=== PATIENT | female | born 1995 | race Caucasian/White ===

== ENCOUNTER 2017-02-13 17:51 | Emergency (ER) | payer OTHER ==
[~2017-02-13] VITALS: Ht 167.6 cm; Wt 67.9 kg
[~2017-02-13 17:51] MED LIST: ALBUAER19 INH; ATV5X PO; QVRINH40 INH
[2017-02-13 18:05] VITALS: TEMP 37.1; Ht 167.6 cm; Wt 67.9 kg
[2017-02-13] MEDS ORDERED: ONDANSETRON INJ 2 MG/ML 2 ML VIAL IV STA (18:10)
[2017-02-13] MEDS ORDERED: KETOROLAC TROMETHAMINE 15 MG/ML VIAL IV STA (18:10)
[2017-02-13] MEDS ORDERED: SODIUM CHLORIDE 0.9% 1000ML 1,000 ML IV STA (18:10)
[2017-02-13] MEDS ORDERED: DPPRI400 INJ (18:19)
[2017-02-13 18:25] LABS: BASO % 0.3 %; BASO ABS # 0.02 K/uL (0-0.2); COMPLETE YES; EOS % 1.7 %; HEMATOCRIT 38.2 % (37-47); IG% 0.1 %; LYMPH % 33.9 %; LYMPH ABS # 2.34 K/uL (1.2-3.4); MEAN CELL VOLUME 85.8 fL (80-100); MEAN CORPUSCULAR HEMOGLOBIN 28.8 pg (25-34); MEAN CORPUSCULAR HGB CONC 33.5 g/dl (32-36); MEAN PLATELET VOLUME 10.3 fL (7.4-10.4); MONO % 8.7 %; NEUT % 55.3 %; PLATELET COUNT 218 K/uL (130-400); RED BLOOD COUNT 4.45 M/uL (4.2-5.4)
[2017-02-13 18:29] LABS: URINE APPEARANCE CLEAR (CLEAR); URINE BILIRUBIN NEG (NEG); URINE COLOR YELLOW; URINE NITRITE NEG (NEG); UROBILINOGEN NEG (NEG); ZZUR CULT IF INDIC CLEAN CATCH NO
[2017-02-13 18:35] LABS: MANUAL MICROSCOPIC REQUIRED? NO; REVIEW REQ? NO
[2017-02-13 18:41] LABS: BUN/CREATININE RATIO 20.2 (10-20); CALCIUM 9.1 mg/dl (8.5-10.1); CREATININE 0.86 mg/dl (0.60-1.20); POTASSIUM 3.5 mmol/L (3.5-5.1)
--- NOTE | 2017-02-13 18:47 | EMERGENCY ROOM VISIT NOTE ---
History First contact with patient: 18:01 Chief Complaint: FLANK PAIN Stated Complaint: BACK PAIN,NAUSEA History of Present Illness The patient is a 21 year old female who presents to the Emergency Room with complaints of left flank pain and nausea. The patient states that she has had left-sided flank pain which began yesterday. She states the pain was initially mild, but has worsened. The pain has been constant today. She reports associated nausea without vomiting. She denies any history of similar symptoms. She does report a history of UTIs, but denies history of kidney stones. She rates her overall discomfort a 7/10 and has not taken any medication for pain. She denies any urinary symptoms or fevers/chills. She denies injury to the back. Review of Systems A complete 10 point review of systems was reviewed with the patient with pertinent positives and negatives as per history of present illness. All else were negative. Past Medical/Surgical History Medical Problems: (1) Asthma Family History Cancer Diabetes mellitus Gallbladder disease Heart disease Hypertension Social History Smoking Status: Never Smoker Alcohol Use: none Drug Use: none Marital Status: single Housing Status: lives with family Occupation Status: student Current/Historical Medications Scheduled Medroxyprogesterone Acetate (Depo-Provera), 400 MG INJ Q3MO Physical Exam Vital Signs Date Time Temp Pulse Resp B/P (MAP) Pulse Ox O2 Delivery O2 Flow Rate FiO2 02/13/17 19:46 70 18 121/77 98 02/13/17 18:05 37.1 66 18 131/74 99 Room Air Physical Exam VITALS: Vitals are noted on the nurse's note and reviewed by myself. Vital signs stable. GENERAL: This is a 21-year-old female, in no acute distress, nondiaphoretic, well-developed well-nourished. SKIN: No rashes noted. HEART: Regular rate and rhythm without murmurs gallops or rubs. LUNGS: Clear to auscultation bilaterally without wheezes, rales or rhonchi. ABDOMEN: Positive bowel sounds x 4. Soft, minimal tenderness in the left lower quadrant. No guarding or rebound tenderness. MUSCULOSKELETAL: Mild left CVA tenderness. NEURO: Patient was alert and oriented to person place and time. Medical Decision & Procedures ER Provider Diagnostic Interpretation: ABD/PELVIS WITHOUT FOR STONE FINDINGS: The lung bases are generally clear. No pneumoperitoneum identified. The cardiac chambers are unremarkable. Evaluation of the solid abdominal organs is limited without the use of contrast. The limitations of the study, the liver, spleen, pancreas and adrenal glands are unremarkable. Gallbladder is contracted. No renal calculi or hydronephrosis. Bilateral ureters appear to be within normal limits. There is a punctate area of increased attenuation posterior to the urinary bladder within the region of the left ureterovesicular junction seen on image 375 of series 3, not definitely seen on comparison study of 01/27/2013. This suggests a phlebolith as no evidence of obstructive uropathy or left ureteral inflammatory changes are identified. Uterus and adnexa are unremarkable. 1.8 cm cystic structure of the right adnexum suggests dominant follicle. The abdominal aorta is normal in both course and caliber. No bulky retroperitoneal adenopathy. Debris-filled stomach suggest recent meal. No bowel obstruction. The appendix measures within the upper limits of normal at 6 mm, however does not appear to be inflamed. High attenuating material seen within the tip of the appendix. Soft tissues are unremarkable. Bones appear intact. IMPRESSION: 1. Punctate radiodensity posterior to the urinary bladder on the left within the region of the distal left ureter suggests a phlebolith rather than renal calculus as there is no left-sided obstructive uropathy or left ureteral inflammatory changes identified. 2. High attenuating material within a noninflamed appendiceal tip may reflect oral contrast from prior study or appendicolith. 3. 1.8 cm cystic structure of the right adnexum suggests dominant follicle. Laboratory Results 02/13/17 18:15 Red Blood Count 4.45, Mean Corpuscular Volume 85.8, Mean Corpuscular Hemoglobin 28.8, Mean Corpuscular Hemoglobin Concent 33.5, Mean Platelet Volume 10.3, Neutrophils (%) (Auto) 55.3, Lymphocytes (%) (Auto) 33.9, Monocytes (%) (Auto) 8.7, Eosinophils (%) (Auto) 1.7, Basophils (%) (Auto) 0.3, Neutrophils # (Auto) 3.81, Lymphocytes # (Auto) 2.34, Monocytes # (Auto) 0.60, Eosinophils # (Auto) 0.12, Basophils # (Auto) 0.02 02/13/17 18:15 Test 02/13/17 18:07 02/13/17 18:15 Urine Color YELLOW Urine Appearance CLEAR (CLEAR) Urine pH 8.0 (4.5-7.5) Urine Specific [place] 1.010 (1.000-1.030) Urine Protein NEG (NEG) Urine Glucose (UA) NEG (NEG) Urine Ketones NEG (NEG) Urine Occult Blood NEG (NEG) Urine Nitrite NEG (NEG) Urine Bilirubin NEG (NEG) Urine Urobilinogen NEG (NEG) Urine Leukocyte Esterase SMALL (NEG) Urine WBC (Auto) 1-5 /hpf (0-5) Urine RBC (Auto) 0-4 /hpf (0-4) Urine Hyaline Casts (Auto) 0 /lpf (0-5) Urine Epithelial Cells (Auto) 5-10 /lpf (0-5) Urine Bacteria (Auto) NEG (NEG) Urine Test NEG (NEG) White Blood Count 6.90 K/uL (4.8-10.8) Red Blood Count 4.45 M/uL (4.2-5.4) Hemoglobin 12.8 g/dL (12.0-16.0) Hematocrit 38.2 % (37-47) Mean Corpuscular Volume 85.8 fL (80-100) Mean Corpuscular Hemoglobin 28.8 pg (25-34) Mean Corpuscular Hemoglobin Concent 33.5 g/dl (32-36) Platelet Count 218 K/uL (130-400) Mean Platelet Volume 10.3 fL (7.4-10.4) Neutrophils (%) (Auto) 55.3 % Lymphocytes (%) (Auto) 33.9 % Monocytes (%) (Auto) 8.7 % Eosinophils (%) (Auto) 1.7 % Basophils (%) (Auto) 0.3 % Neutrophils # (Auto) 3.81 K/uL (1.4-6.5) Lymphocytes # (Auto) 2.34 K/uL (1.2-3.4) Monocytes # (Auto) 0.60 K/uL (0.11-0.59) Eosinophils # (Auto) 0.12 K/uL (0-0.5) Basophils # (Auto) 0.02 K/uL (0-0.2) RDW Standard Deviation 40.2 fL (36.4-46.3) RDW Coefficient of Variation 12.8 % (11.5-14.5) Immature Granulocyte % (Auto) 0.1 % Immature Granulocyte # (Auto) 0.01 K/uL (0.00-0.02) Anion Gap 7.0 mmol/L (3-11) Est Creatinine Clear Calc Drug Dose 97.6 ml/min Estimated GFR () 112.7 Estimated GFR (Non- 97.3 BUN/Creatinine Ratio 20.2 (10-20) Calcium Level 9.1 mg/dl (8.5-10.1) Total Bilirubin 0.7 mg/dl (0.2-1) Direct Bilirubin 0.2 mg/dl (0-0.2) Aspartate Amino Transf (AST/SGOT) 18 U/L (15-37) Alanine Aminotransferase (ALT/SGPT) 26 U/L (12-78) Alkaline Phosphatase 52 U/L (45-117) Total Protein 7.7 gm/dl (6.4-8.2) Albumin 4.2 gm/dl (3.4-5.0) Lipase 189 U/L (73-393) Medications Administered Medications (Trade) Dose Ordered Sig/Reji Route Start Time Stop Time Status Last Admin Dose Admin Sodium Chloride 1,000 ml @ 999 mls/hr Q1H1M STAT IV 02/13/17 18:10 02/13/17 19:10 DC 02/13/17 18:10 999 MLS/HR Ondansetron HCl (Zofran Inj) 4 mg NOW STAT IV 02/13/17 18:10 02/13/17 18:13 DC 02/13/17 18:24 4 MG Ketorolac Tromethamine (Toradol Inj) 15 mg NOW STAT IV 02/13/17 18:10 02/13/17 18:13 DC 02/13/17 18:24 15 MG Medical Decision Differential diagnosis includes kidney stone, pyelonephritis, pancreatitis, gastritis, musculoskeletal pain, herpes zoster, among others. The patient is a 21-year-old female who presents today complaining of left flank pain. Labs revealed no leukocytosis, anemia or concerning electrolyte abnormalities. Urinalysis was not suggestive of infection. Urine was negative. CT scan showed questionable left distal ureter punctate stone versus phlebolith. Patient's pain may be secondary to a small stone or musculoskeletal pain. She was treated with IV Toradol and Zofran with significant relief. She declined any further analgesics. She will follow-up with her primary care provider for further evaluation of this. Based on the patient's presentation and work up, I feel the patient is stable for outpatient treatment. The patient was educated to return to the emergency department for any worsening of their current condition or new/concerning symptoms. She will follow up with her PCP. Medication Reconcilliation Current Medication List: was personally reviewed by me Blood Pressure Screening Patient's blood pressure: Normal blood pressure Impression Primary Impression: Left flank pain Departure Information Dispostion Home / Self-Care Condition GOOD Referrals No Doctor, Assigned (PCP) Patient Instructions [facility] Additional Instructions You have been treated in the Emergency Department for Back Pain. For pain control, you can use the following dlnk-akd-ittraae medicines (if >12 yo): - Regular strength (325mg/tab) Tylenol (acetaminophen) 2 tabs every 4-6 hours as needed. Do not exceed 12 tablets in a 24 hour period. Avoid taking more than 4 grams (4000 mg) of Tylenol per day. This includes any other sources of acetaminophen you may take on a regular basis. - Regular strength (200 mg/tab) Advil (ibuprofen) 3 tabs every 6 hours as needed. Do not exceed a dose of 3200 mg per day. If this is an acute injury, ice can be applied to the area of pain for the first 3 days to help decrease pain and inflammation. After the first 3 days, a heating pad can be used over the area for continued soothing relief. You should schedule a follow-up appointment with your Primary Care Provider for a recheck. Return to the Emergency Department if your current symptoms worsen despite treatment course outlined above, or if you develop any of the following symptoms : intractable pain despite aforementioned treatment course, loss of control of your bowel or bladder, numbness or tingling in your groin, or development of a fever.
--- NOTE | 2017-02-13 18:58 | DIAGNOSTIC IMAGING REPORT ---
ABD/PELVIS WITHOUT FOR STONE HISTORY: 21 years-old Female left flank pain, nausea acute left-sided flank pain with nausea. Concern for kidney stone. COMPARISON: CT abdomen and pelvis 01/27/2013 TECHNIQUE: Multiple axial CT images of the abdomen and pelvis were obtained without contrast. A dose lowering technique was used consistent with the principals of ALLAN. FINDINGS: The lung bases are generally clear. No pneumoperitoneum identified. The cardiac chambers are unremarkable. Evaluation of the solid abdominal organs is limited without the use of contrast. The limitations of the study, the liver, spleen, pancreas and adrenal glands are unremarkable. Gallbladder is contracted. No renal calculi or hydronephrosis. Bilateral ureters appear to be within normal limits. There is a punctate area of increased attenuation posterior to the urinary bladder within the region of the left ureterovesicular junction seen on image 375 of series 3, not definitely seen on comparison study of 01/27/2013. This suggests a phlebolith as no evidence of obstructive uropathy or left ureteral inflammatory changes are identified. Uterus and adnexa are unremarkable. 1.8 cm cystic structure of the right adnexum suggests dominant follicle. The abdominal aorta is normal in both course and caliber. No bulky retroperitoneal adenopathy. Debris-filled stomach suggest recent meal. No bowel obstruction. The appendix measures within the upper limits of normal at 6 mm, however does not appear to be inflamed. High attenuating material seen within the tip of the appendix. Soft tissues are unremarkable. Bones appear intact. IMPRESSION: 1. Punctate radiodensity posterior to the urinary bladder on the left within the region of the distal left ureter suggests a phlebolith rather than renal calculus as there is no left-sided obstructive uropathy or left ureteral inflammatory changes identified. 2. High attenuating material within a noninflamed appendiceal tip may reflect oral contrast from prior study or appendicolith. 3. 1.8 cm cystic structure of the right adnexum suggests dominant follicle. The above report was generated using voice recognition software. It may contain grammatical, syntax or spelling errors. Electronically signed by: Marvin Quiros M.D. 02/13/2017 6:57 PM Dictated Date/Time: 02/13/2017 6:49 PM
[2017-02-13 19:46] VITALS: BP 121/77; PULSE 70; O2SAT 98
== END 2017-02-13 19:47 | disposition home or self-care (01) ==
LOC: C.EDB 17:54 → C.EDA 19:47
DX: R10.9 Unspecified abdominal pain (principal); R11.0 Nausea; M54.9 Dorsalgia, unspecified; J45.909 Unspecified asthma, uncomplicated; Z87.440 Personal history of urinary (tract) infections

== ENCOUNTER 2017-05-27 23:10 | Emergency (ER) | payer OTHER ==
[~2017-05-27] VITALS: Ht 167.6 cm; Wt 65.0 kg
[~2017-05-27 23:10] MED LIST changes: -ALBUAER19 INH; -ATV5X PO; +DPPRI400 INJ; -QVRINH40 INH
[2017-05-27 23:13] VITALS: TEMP 36.6; Ht 167.6 cm; Wt 65.0 kg
[2017-05-27] MEDS ORDERED: ALBINS/ NEB (23:33)
[2017-05-27] MEDS ORDERED: VNTHFA/IN PO (23:33)
[2017-05-27 23:39] VITALS: O2SAT 98
[2017-05-27] MEDS ORDERED: KETOROLAC TROMETHAMINE 30 MG/ML VIAL IV STA (23:45)
[2017-05-27 23:54] LABS: BASO % 0.4 %; BASO ABS # 0.03 K/uL (0-0.2); EOS % 1.3 %; EOS ABS # 0.09 K/uL (0-0.5); HEMOGLOBIN 13.6 g/dL (12.0-16.0); IG# 0.01 K/uL (0.00-0.02); LYMPH % 35.9 %; MEAN CELL VOLUME 81.8 fL (80-100); MEAN CORPUSCULAR HEMOGLOBIN 28.5 pg (25-34); MEAN CORPUSCULAR HGB CONC 34.9 g/dl (32-36); MEAN PLATELET VOLUME 10.8 fL (7.4-10.4); MONO % 12.1 %; MONO ABS # 0.81 K/uL (0.11-0.59); NEUT % 50.2 %; NEUT ABS # 3.34 K/uL (1.4-6.5); PLATELET COUNT 197 K/uL (130-400); RED CELL DISTRIBUTION WIDTH CV 12.2 % (11.5-14.5); WHITE BLOOD COUNT 6.68 K/uL (4.8-10.8)
[2017-05-28 00:03] LABS: ALBUMIN 3.9 gm/dl (3.4-5.0); ALT/SGPT 33 U/L (12-78); AST/SGOT 24 U/L (15-37); BLOOD UREA NITROGEN 14 mg/dl (7-18); CALCIUM 8.9 mg/dl (8.5-10.1); CARBON DIOXIDE 26 mmol/L (21-32); CREATININE 0.84 mg/dl (0.60-1.20); GLUCOSE 63 mg/dl (70-99); LIPASE 213 U/L (73-393); POTASSIUM 3.3 mmol/L (3.5-5.1); SODIUM 138 mmol/L (136-145)
[2017-05-28 00:09] LABS: ALKALINE PHOSPHATASE 67 U/L (45-117); CKMB 0.8 ng/ml (0.5-3.6); TOTAL PROTEIN 8.1 gm/dl (6.4-8.2)
[2017-05-28 00:14] LABS: PTT PATIENT 26.4 SECONDS (21.0-31.0)
--- NOTE | 2017-05-28 01:19 | EMERGENCY ROOM VISIT NOTE ---
History Report prepared by Irina: Dot Alfred Under the Supervision of: Dr. Harjit Vuong D.O. First contact with patient: 23:35 Chief Complaint: CARDIAC ASSESSMENT Stated Complaint: CHEST AND SHOULDER PAIN Nursing Triage Summary: Pt complaining of 10/10 left shoulder and chest pain. Pain woke her from sleep tonight. Reports pain present all day, but not this severe. Pt reports she started having right shoulder and chest pain Wednesday. To see PCP with concerns of gallbladder problems, due to family hx. Scheduled for gallbladder US Wednesday. History of Present Illness The patient is a 21 year old female who presents to the Emergency Room for a cardiac assessment. The patient states that she has left shoulder and chest pain. She states that she had the same pain four days ago, but on the right side. She states that at that she took Advil, went to sleep, and was fine. She reports that she went to her PCP three days ago and they scheduled an ultrasound for next thinking it may be her gallbladder. She states that she gets nauseous and vomits with the pain. She states that the pain feels like it is throbbing and radiating. She reports that it makes it feel like her chest is being ripped open. She states that it became worse tonight three hours ago. The patient notes that it is worse when she lies flat. She denies any recent illness. She notes that the pain started shortly after eating toast and Jell-o. She reports that she has been having heart burn, but was given medicine by her PCP that does not help much. Source of History: patient Onset: three hours ago Position: chest (left) Quality: other (radiating and throbbing) Timing: worsening Modifying Factors (Worsening): other (lying flat) Associated Symptoms: + nausea, + vomiting Note: The patient complains of left shoulder pain. Review of Systems See HPI for pertinent positives & negatives. A total of 10 systems reviewed and were otherwise negative. Past Medical & Surgical Medical Problems: (1) Asthma Family History Cancer Diabetes mellitus Gallbladder disease Heart disease Hypertension Social History Smoking Status: Never Smoker Alcohol Use: none Drug Use: none Marital Status: single Housing Status: lives with family Occupation Status: student Current/Historical Medications Scheduled Albuterol Hfa (Ventolin Hfa), 2 PUFFS PO UD Medroxyprogesterone Acetate (Depo-Provera), 400 MG INJ Q3MO Scheduled PRN Albuterol Sulf (Proventil 0.083% 2.5MG/3ML), 3 ML NEB UD PRN for SOB/Wheezing Allergies Coded Allergies: Latex (Verified Allergy, Mild, RASH, 05/27/17) Physical Exam Vital Signs Date Time Temp Pulse Resp B/P (MAP) Pulse Ox O2 Delivery O2 Flow Rate FiO2 05/28/17 01:01 68 18 95/53 98 Room Air 05/28/17 00:01 05/27/17 23:42 65 05/27/17 23:40 69 15 99 05/27/17 23:39 98 Room Air 05/27/17 23:38 128/55 05/27/17 23:13 36.6 61 24 122/76 98 Room Air Physical Exam CONSTITUTIONAL/VITAL SIGNS: Reviewed / noted above. GENERAL: Non-toxic in appearance. INTEGUMENTARY: Warm, dry, and [place]. HEAD: Normocephalic. EYES: without scleral icterus or trauma. ENT/OROPHARYNX: clear and moist. LYMPHADENOPATHY/NECK: Is supple without lymphadenopathy or meningismus. RESPIRATORY: Lungs clear and equal. CARDIOVASCULAR: Regular rate and rhythm. GI/ABDOMEN: Soft. Tenderness ti right upper quadrant. No organomegaly or pulsatile mass. No rebound or guarding. Normal bowel sounds. EXTREMITIES: Warm and well perfused. BACK: No CVA tenderness. NEUROLOGICAL: Intact without focal deficits. PSYCHIATRIC: normal affect. MUSCULOSKELETAL: Normally developed with good muscle tone. Medical Decision & Procedures ER Provider Diagnostic Interpretation: Radiology results as stated below per my review and radiologist interpretation: CHEST X-RAY: The results were interpreted by me. Negative for acute disease. No pneumonia. No pneumothorax. US RUQ: No gallstones or biliary duct dilatation. Radiologist: Bill Burgos M.D. Study ready at 00:48 and initial results transmitted at 00:53. Laboratory Results 05/27/17 23:20 Red Blood Count 4.77, Mean Corpuscular Volume 81.8, Mean Corpuscular Hemoglobin 28.5, Mean Corpuscular Hemoglobin Concent 34.9, Mean Platelet Volume 10.8, Neutrophils (%) (Auto) 50.2, Lymphocytes (%) (Auto) 35.9, Monocytes (%) (Auto) 12.1, Eosinophils (%) (Auto) 1.3, Basophils (%) (Auto) 0.4, Neutrophils # (Auto ) 3.34, Lymphocytes # (Auto) 2.40, Monocytes # (Auto) 0.81, Eosinophils # (Auto ) 0.09, Basophils # (Auto) 0.03 05/27/17 23:20 Test 05/27/17 23:20 05/27/17 23:55 White Blood Count 6.68 K/uL (4.8-10.8) Red Blood Count 4.77 M/uL (4.2-5.4) Hemoglobin 13.6 g/dL (12.0-16.0) Hematocrit 39.0 % (37-47) Mean Corpuscular Volume 81.8 fL (80-100) Mean Corpuscular Hemoglobin 28.5 pg (25-34) Mean Corpuscular Hemoglobin Concent 34.9 g/dl (32-36) Platelet Count 197 K/uL (130-400) Mean Platelet Volume 10.8 fL (7.4-10.4) Neutrophils (%) (Auto) 50.2 % Lymphocytes (%) (Auto) 35.9 % Monocytes (%) (Auto) 12.1 % Eosinophils (%) (Auto) 1.3 % Basophils (%) (Auto) 0.4 % Neutrophils # (Auto) 3.34 K/uL (1.4-6.5) Lymphocytes # (Auto) 2.40 K/uL (1.2-3.4) Monocytes # (Auto) 0.81 K/uL (0.11-0.59) Eosinophils # (Auto) 0.09 K/uL (0-0.5) Basophils # (Auto) 0.03 K/uL (0-0.2) RDW Standard Deviation 36.0 fL (36.4-46.3) RDW Coefficient of Variation 12.2 % (11.5-14.5) Immature Granulocyte % (Auto) 0.1 % Immature Granulocyte # (Auto) 0.01 K/uL (0.00-0.02) Prothrombin Time 10.6 SECONDS (9.0-12.0) Prothromb Time International Ratio 1.0 (0.9-1.1) Activated Partial Thromboplast Time 26.4 SECONDS (21.0-31.0) Partial Thromboplastin Ratio 1.0 Anion Gap 8.0 mmol/L (3-11) Est Creatinine Clear Calc Drug Dose 99.9 ml/min Estimated GFR () 116.0 Estimated GFR (Non- 100.1 BUN/Creatinine Ratio 17.1 (10-20) Calcium Level 8.9 mg/dl (8.5-10.1) Total Bilirubin 0.4 mg/dl (0.2-1) Direct Bilirubin < 0.1 mg/dl (0-0.2) Aspartate Amino Transf (AST/SGOT) 24 U/L (15-37) Alanine Aminotransferase (ALT/SGPT) 33 U/L (12-78) Alkaline Phosphatase 67 U/L (45-117) Total Creatine Kinase 91 U/L (26-192) Creatine Kinase MB 0.8 ng/ml (0.5-3.6) Creatine Kinase MB Ratio 0.9 (0-3.0) Troponin I < 0.015 ng/ml (0-0.045) Total Protein 8.1 gm/dl (6.4-8.2) Albumin 3.9 gm/dl (3.4-5.0) Lipase 213 U/L (73-393) Urine Color YELLOW Urine Appearance CLEAR (CLEAR) Urine pH 7.5 (4.5-7.5) Urine Specific [place] 1.013 (1.000-1.030) Urine Protein NEG (NEG) Urine Glucose (UA) NEG (NEG) Urine Ketones NEG (NEG) Urine Occult Blood NEG (NEG) Urine Nitrite NEG (NEG) Urine Bilirubin NEG (NEG) Urine Urobilinogen NEG (NEG) Urine Leukocyte Esterase TRACE (NEG) Urine WBC (Auto) 1-5 /hpf (0-5) Urine RBC (Auto) 0-4 /hpf (0-4) Urine Hyaline Casts (Auto) 0 /lpf (0-5) Urine Epithelial Cells (Auto) >30 /lpf (0-5) Urine Bacteria (Auto) NEG (NEG) Laboratory results as stated above per my review. Medications Administered Medications (Trade) Dose Ordered Sig/Reji Route Start Time Stop Time Status Last Admin Dose Admin Ketorolac Tromethamine (Toradol Inj) 30 mg NOW STAT IV 05/27/17 23:45 05/27/17 23:48 DC 05/27/17 23:54 30 MG ECG Indication: chest pain Rate (beats per minute): 68 Rhythm: normal sinus Findings: no acute ischemic change, no ectopy ED Course 2337: Previous medical records were reviewed. The patient was evaluated in room B6. A complete history and physical examination was performed. 2345: Ordered Toradol Inj 30 mg IV. 0119: On reevaluation, the patient is resting comfortably. I discussed the results and findings with the patient. She verbalized agreement of the treatment plan. The patient was discharged home. Medical Decision the differential was considered includes acute myocardial infarction, acute coronary syndrome, myocarditis, pericarditis, pericardial effusions /tamponad, esophageal perforation, thoracic aortic dissection, pulmonary embolism, pneumonia, pneumothorax, pancreatitis, shingles, acute cholecystitis, perforated abdominal viscus. This is a 21-year-old female who presents to the ED with a chief complaint of some left-sided upper chest and shoulder pain. She describes it as a throbbing pain. She also reported having some right-sided shoulder pain on Wednesday. This is no longer present. Further details are listed above. Her vital signs are stable. Her physical exam revealed some tenderness to palpation of the left upper chest wall. Blood work reveals a normal CBC and complete metabolic panel. Troponin was negative as was lipase. Urine did not show infection. Ultrasound gallbladder was negative for acute disease. Chest x-ray was negative for acute disease. The patient was told the results. She was given Toradol for pain. She is felt to be stable for discharge. Medication Reconcilliation Current Medication List: was personally reviewed by me Blood Pressure Screening Patient's blood pressure: Normal blood pressure Blood pressure disposition: Did not require urgent referral Impression Primary Impression: Chest wall pain Scribe Attestation The scribe's documentation has been prepared under my direction and personally reviewed by me in its entirety. I confirm that the note above accurately reflects all work, treatment, procedures, and medical decision making performed by me. Departure Information Dispostion Home / Self-Care Referrals Sim Gore M.D.(JOCELINE) (PCP) Forms IMPORTANT VISIT INFORMATION Patient Instructions [facility] Additional Instructions Gallbladder ultrasound today was normal. Blood work and chest x-ray are also normal. Take Tylenol or Motrin for pain. Follow-up with your doctor for recheck if symptoms persist.
[2017-05-28 01:30] VITALS: BP 94/60; PULSE 63; O2SAT 97
--- NOTE | 2017-05-28 06:42 | DIAGNOSTIC IMAGING REPORT ---
CHEST ONE VIEW PORTABLE CLINICAL HISTORY: Fever, sepsis. COMPARISON STUDY: 05/26/2014 FINDINGS: The cardiac and mediastinal contours are normal. There is no evidence of focal pulmonary consolidation. There is no evidence of failure. No pleural effusions are visualized.[ IMPRESSION: No active disease in the chest. Electronically signed by: Aniceto Santoyo M.D. 05/28/2017 6:41 AM Dictated Date/Time: 05/28/2017 6:41 AM
--- NOTE | 2017-05-28 07:27 | DIAGNOSTIC IMAGING REPORT ---
ABDOMINAL ULTRASOUND, RIGHT UPPER QUADRANT HISTORY: Generalized abdominal pain. Vomiting.. COMPARISON: None. FINDINGS: Pancreas: The pancreas demonstrates a normal echotexture. Liver: Unremarkable. Gallbladder: No gallbladder wall thickening. No gallstones. CBD: 3 mm. Right kidney: No hydronephrosis. IMPRESSION: No significant abnormality identified within the right upper quadrant. Electronically signed by: Flako Sanford M.D. 05/28/2017 7:26 AM Dictated Date/Time: 05/28/2017 7:26 AM
== END 2017-05-28 01:30 | disposition home or self-care (01) ==
LOC: C.EDB 23:12
DX: R07.89 Other chest pain (principal); M25.512 Pain in left shoulder; J45.909 Unspecified asthma, uncomplicated

== ENCOUNTER 2017-08-15 16:27 | Emergency (ER) | payer OTHER ==
[~2017-08-15] VITALS: Ht 167.6 cm; Wt 64.5 kg
[~2017-08-15 16:27] MED LIST changes: +ALBINS/ NEB; +VNTHFA/IN PO
[2017-08-15 16:35] VITALS: TEMP 36.8; Ht 167.6 cm; Wt 64.5 kg
[2017-08-15] MEDS ORDERED: PROCHLORPERAZINE 5 MG/ML 2 ML VIAL IV STA (16:58)
[2017-08-15] MEDS ORDERED: KETOROLAC TROMETHAMINE 30 MG/ML VIAL IV STA (16:58)
[2017-08-15] MEDS ORDERED: DiphenhydrAMINE HCL 50 MG/ML VIAL IV STA (16:58)
[2017-08-15] MEDS ORDERED: SODIUM CHLORIDE 0.9% 1000ML 1,000 ML IV ONE (17:00)
--- NOTE | 2017-08-15 17:04 | EMERGENCY ROOM VISIT NOTE ---
History First contact with patient: 16:44 Chief Complaint: HEADACHE Stated Complaint: PCP REFERRAL FOR MIGRAINE AND CHEST PAIN History of Present Illness The patient is a 21 year old female who presents to the Emergency Room with complaints of chest pain that has been intermittent over the last several weeks. She describes it as a dull, ache in the center of her chest. It is worse with lying flat. She also describes shortness of breath with minimal exertion. She denies any recent illnesses such as cough, fever or chills. The patient reports a history of mitral valve prolapse. The patient is also complaining of a severe, throbbing headache for the last 5 days. She has tried hot showers, cool compresses, Excedrin and Tylenol with no relief. She feels nauseous. She denies any vomiting. She denies any severe neck pain. She denies any history of migraines. Review of Systems 10 system review performed and negative unless noted in HPI or below Past Medical/Surgical History Medical Problems: (1) Asthma Depression Family History Cancer Diabetes mellitus Gallbladder disease Heart disease Hypertension Social History Smoking Status: Never Smoker Alcohol Use: none Drug Use: none Marital Status: single Housing Status: lives alone Occupation Status: student Current/Historical Medications Scheduled Albuterol Hfa (Ventolin Hfa), 2 PUFFS PO UD Ketorolac Tromethamine (Toradol), 10 MG PO TID Medroxyprogesterone Acetate (Depo-Provera), 400 MG INJ Q3MO Prochlorperazine Maleate (Compazine), 10 MG PO Q8 Sertraline (Zoloft), 100 MG PO DAILY Scheduled PRN Albuterol Sulf (Proventil 0.083% 2.5MG/3ML), 3 ML NEB UD PRN for SOB/Wheezing Physical Exam Vital Signs Date Time Temp Pulse Resp B/P (MAP) Pulse Ox O2 Delivery O2 Flow Rate FiO2 08/15/17 20:06 60 18 109/58 98 08/15/17 18:10 43 105/66 97 Room Air 08/15/17 18:00 49 08/15/17 16:35 36.8 64 16 119/73 99 Room Air Physical Exam VITALS: Vitals are noted on the nurse's note and reviewed by myself. Vital signs stable. GENERAL: 21-year-old female, mildly anxious in appearance,,well-developed well- nourished. SKIN: The skin was without rashes, erythema, edema, or bruising. HEAD: Normocephalic atraumatic. EYES: Pupils equal round and reactive to light and accommodation. Conjunctivae without injection, sclerae without icterus. Extraocular movements intact. MOUTH: Mucous membranes slightly dry tonsils are not enlarged. Pharynx without erythema or exudate. Uvula midline. Airway patent. Tongue does not deviate. NECK: Supple without nuchal rigidity. Full flexion and extension of the neck no lymphadenopathy. Cervical spine is nontender. No JVD. HEART: Regular rate and rhythm without murmurs gallops or rubs. No tenderness over the thorax LUNGS: Clear to auscultation bilaterally without wheezes, rales or rhonchi. No accessory muscle use. ABDOMEN: Positive bowel sounds x 4.Soft, nontender, without organomegaly. No guarding or rebound tenderness. MUSCULOSKELETAL: No muscle atrophy, erythema, or edema noted. Strength 5/5 throughout. NEURO: Patient was alert and oriented to person place and time. Normal sensation to touch. No focal neurological deficits. Medical Decision & Procedures ER Provider Diagnostic Interpretation: CT head IMPRESSION: Normal noncontrast head CT. Electronically signed by: Aniceto Santoyo M.D. 08/15/2017 6:43 PM Dictated Date/Time: 08/15/2017 6:42 PM CXR IMPRESSION: No active disease in the chest. Electronically signed by: Aniceto Santoyo M.D. 08/15/2017 5:25 PM Dictated Date/Time: 08/15/2017 5:25 PM Laboratory Results 08/15/17 17:50 Red Blood Count 4.81, Mean Corpuscular Volume 80.2, Mean Corpuscular Hemoglobin 26.2, Mean Corpuscular Hemoglobin Concent 32.6, Mean Platelet Volume 10.5, Neutrophils (%) (Auto) 40.0, Lymphocytes (%) (Auto) 47.0, Monocytes (%) (Auto) 10.5, Eosinophils (%) (Auto) 2.0, Basophils (%) (Auto) 0.5, Neutrophils # (Auto ) 2.26, Lymphocytes # (Auto) 2.65, Monocytes # (Auto) 0.59, Eosinophils # (Auto ) 0.11, Basophils # (Auto) 0.03 4/8/18 17:50 Test 08/15/17 17:38 08/15/17 17:50 Urine Color YELLOW Urine Appearance CLEAR (CLEAR) Urine pH 6.5 (4.5-7.5) Urine Specific Byron 1.017 (1.000-1.030) Urine Protein NEG (NEG) Urine Glucose (UA) NEG (NEG) Urine Ketones NEG (NEG) Urine Occult Blood NEG (NEG) Urine Nitrite NEG (NEG) Urine Bilirubin NEG (NEG) Urine Urobilinogen NEG (NEG) Urine Leukocyte Esterase SMALL (NEG) Urine WBC (Auto) 1-5 /hpf (0-5) Urine RBC (Auto) 0-4 /hpf (0-4) Urine Hyaline Casts (Auto) 0 /lpf (0-5) Urine Epithelial Cells (Auto) >30 /lpf (0-5) Urine Bacteria (Auto) NEG (NEG) Urine Test NEG (NEG) White Blood Count 5.64 K/uL (4.8-10.8) Red Blood Count 4.81 M/uL (4.2-5.4) Hemoglobin 12.6 g/dL (12.0-16.0) Hematocrit 38.6 % (37-47) Mean Corpuscular Volume 80.2 fL (80-100) Mean Corpuscular Hemoglobin 26.2 pg (25-34) Mean Corpuscular Hemoglobin Concent 32.6 g/dl (32-36) Platelet Count 194 K/uL (130-400) Mean Platelet Volume 10.5 fL (7.4-10.4) Neutrophils (%) (Auto) 40.0 % Lymphocytes (%) (Auto) 47.0 % Monocytes (%) (Auto) 10.5 % Eosinophils (%) (Auto) 2.0 % Basophils (%) (Auto) 0.5 % Neutrophils # (Auto) 2.26 K/uL (1.4-6.5) Lymphocytes # (Auto) 2.65 K/uL (1.2-3.4) Monocytes # (Auto) 0.59 K/uL (0.11-0.59) Eosinophils # (Auto) 0.11 K/uL (0-0.5) Basophils # (Auto) 0.03 K/uL (0-0.2) RDW Standard Deviation 39.2 fL (36.4-46.3) RDW Coefficient of Variation 13.4 % (11.5-14.5) Immature Granulocyte % (Auto) 0.0 % Immature Granulocyte # (Auto) 0.00 K/uL (0.00-0.02) D-Dimer 210 ug/L FEU (0-500) Anion Gap 6.0 mmol/L (3-11) Est Creatinine Clear Calc Drug Dose 101.2 ml/min Estimated GFR () 117.7 Estimated GFR (Non- 101.5 BUN/Creatinine Ratio 18.9 (10-20) Calcium Level 8.5 mg/dl (8.5-10.1) Total Bilirubin 0.5 mg/dl (0.2-1) Aspartate Amino Transf (AST/SGOT) 17 U/L (15-37) Alanine Aminotransferase (ALT/SGPT) 24 U/L (12-78) Alkaline Phosphatase 53 U/L (45-117) Total Creatine Kinase 86 U/L (26-192) Creatine Kinase MB 0.5 ng/ml (0.5-3.6) Creatine Kinase MB Ratio 0.6 (0-3.0) Troponin I < 0.015 ng/ml (0-0.045) Total Protein 7.9 gm/dl (6.4-8.2) Albumin 3.9 gm/dl (3.4-5.0) Globulin 4.0 gm/dl (2.5-4.0) Albumin/Globulin Ratio 1.0 (0.9-2) Lipase 205 U/L (73-393) Thyroid Stimulating Hormone (TSH) 0.954 uIu/ml (0.300-4.500) Lyme Disease IgG Antibody NEG (NEG) Lyme Disease IgM Antibody NEG (NEG) Medications Administered Medications (Trade) Dose Ordered Sig/Reji Route Start Time Stop Time Status Last Admin Dose Admin Sodium Chloride 1,000 ml @ 999 mls/hr Q1H1M ONCE IV 08/15/17 17:00 08/15/17 18:00 DC 08/15/17 18:06 999 MLS/HR Ketorolac Tromethamine (Toradol Inj) 30 mg NOW STAT IV 08/15/17 16:58 08/15/17 17:01 DC 08/15/17 18:07 30 MG Diphenhydramine HCl (Benadryl Inj) 25 mg NOW STAT IV 08/15/17 16:58 08/15/17 17:01 DC 08/15/17 18:10 25 MG Prochlorperazine Edisylate (Compazine Inj) 10 mg NOW STAT IV 08/15/17 16:58 08/15/17 17:01 DC 08/15/17 18:08 10 MG ECG Per My Interpretation Indication: chest pain Rate (beats per minute): 47 Rhythm: sinus bradycardia Change: no significant change ED Course Patient was seen and examined Vital signs including blood pressure were reviewed medications list was verified with patient Labs were obtained, and a saline lock was established An EKG was performed. The patient was put on a monitor. The patient was medicated with Toradol 30 mg IV, Compazine 10 mg IV, Benadryl 25 mg IV and hydrated with 1 L of normal saline The case was discussed with my supervising physician who evaluated the EKG The patient was reassessed and resting comfortably. Her pain was gone. We discussed her workup. She voiced understanding, was comfortable being discharged home. I reviewed discharge instructions the patient. They voiced understanding and had no further questions. Medical Decision Differential diagnosis: Anxiety, PE, acute myocardial infarction, cardiac arrhythmia, anemia, thyroid abnormality, pneumothorax, pneumonia, bronchitis, pericarditis, tension headache, cluster headache, migraine, encephalitis, meningitis, dehydration This patient is a 21-year-old female that presents to the emergency department with chest pain and a headache. Please see HPI for details. On exam, she was neurologically intact. She was slightly dehydrated. No reproducible chest pain noted. No significant risk factors for PE. Her workup reveals no leukocytosis. Cardiac markers are negative. EKG shows sinus bradycardia with no signs of ischemia or infarction. D-dimer is within normal limits. I do not suspect a cardiac cause for her pain. I do believe there is a slight anxiety component. Regarding the headache, the patient responded very well to the medications given in the emergency department. This leads me to believe that it is migrainous in nature. CT of the head was negative. Lyme screen was also negative. I believe she is stable to be discharged home with close follow-up. She was instructed to follow-up with her primary care physician this week. She agrees to return with worsening symptoms. This chart was completed in part utilizing [employer] Voice Recognition software. Attempts were made to minimize the grammatical errors, random word insertions, pronoun errors and incomplete sentences. Any formal questions or concerns about the content, text or information contained within the body of this dictation should be directly addressed to the provider for clarification. Medication Reconcilliation Current Medication List: was personally reviewed by me Blood Pressure Screening Patient's blood pressure: Normal blood pressure Impression Primary Impression: Headache Additional Impression: Chest pain Departure Information Dispostion Home / Self-Care Condition GOOD Prescriptions Prochlorperazine Maleate (COMPAZINE) 10 Mg Tab 10 MG PO Q8 for Nausea or Vomiting, #10 TAB Prov: Tracy Burch PA-C 08/15/17 Ketorolac Tromethamine (TORADOL) 10 Mg Tab 10 MG PO TID for Pain, #10 TAB Prov: Tracy Burch PA-C 08/15/17 Referrals Sim Gore M.D. ([facility]) (PCP) Patient Instructions [facility] Additional Instructions You were evaluated in the emergency department for chest pain and a headache. A CAT scan did not show any abnormalities of the head. It is possible that you are having a migraine headache. The cause of the chest pain is unclear. Please follow-up with your primary care physician in the next 24-48 hrs. for recheck Please get plenty of rest and drink extra fluids over the next several days. If the headache returns, please take Compazine, Toradol and Benadryl (which is [id number]) every 8 hours as needed for pain and nausea Please do not hesitate to return to the emergency department with any new or worsening symptoms It was a pleasure participating in your care today Problem Qualifiers
[2017-08-15] MEDS ORDERED: SERT-234 PO (17:06)
--- NOTE | 2017-08-15 17:26 | DIAGNOSTIC IMAGING REPORT ---
CHEST ONE VIEW PORTABLE CLINICAL HISTORY: Central chest pain COMPARISON STUDY: 05/27/2017 FINDINGS: The cardiac and mediastinal contours are normal. There is no evidence of focal pulmonary consolidation. There is no evidence of failure. No pleural effusions are visualized.[ IMPRESSION: No active disease in the chest. Electronically signed by: Aniceto Santoyo M.D. 08/15/2017 5:25 PM Dictated Date/Time: 08/15/2017 5:25 PM
[2017-08-15 18:04] LABS: BASO % 0.5 %; BASO ABS # 0.03 K/uL (0-0.2); EOS ABS # 0.11 K/uL (0-0.5); HEMATOCRIT 38.6 % (37-47); HEMOGLOBIN 12.6 g/dL (12.0-16.0); LYMPH ABS # 2.65 K/uL (1.2-3.4); MEAN CELL VOLUME 80.2 fL (80-100); MEAN CORPUSCULAR HEMOGLOBIN 26.2 pg (25-34); MEAN CORPUSCULAR HGB CONC 32.6 g/dl (32-36); MEAN PLATELET VOLUME 10.5 fL (7.4-10.4); MONO % 10.5 %; MONO ABS # 0.59 K/uL (0.11-0.59); NEUT ABS # 2.26 K/uL (1.4-6.5); PLATELET COUNT 194 K/uL (130-400); RED CELL DISTRIBUTION WIDTH CV 13.4 % (11.5-14.5); RED CELL DISTRIBUTION WIDTH SD 39.2 fL (36.4-46.3); WHITE BLOOD COUNT 5.64 K/uL (4.8-10.8)
[2017-08-15 18:24] LABS: ALBUMIN 3.9 gm/dl (3.4-5.0); ALT/SGPT 24 U/L (12-78); AST/SGOT 17 U/L (15-37); BLOOD UREA NITROGEN 16 mg/dl (7-18); CALCIUM 8.5 mg/dl (8.5-10.1); CARBON DIOXIDE 26 mmol/L (21-32); CREATININE 0.83 mg/dl (0.60-1.20); GLUCOSE 71 mg/dl (70-99); LIPASE 205 U/L (73-393); POTASSIUM 3.5 mmol/L (3.5-5.1); SODIUM 138 mmol/L (136-145)
[2017-08-15 18:35] LABS: ALKALINE PHOSPHATASE 53 U/L (45-117); CKMB 0.5 ng/ml (0.5-3.6); TOTAL PROTEIN 7.9 gm/dl (6.4-8.2)
--- NOTE | 2017-08-15 18:44 | DIAGNOSTIC IMAGING REPORT ---
CT HEAD WITHOUT CONTRAST (CT) CLINICAL HISTORY: Severe headache COMPARISON STUDY: 03/03/2010 TECHNIQUE: Axial CT of the brain is performed from the vertex to the skull base. IV contrast was not administered for this examination. A dose lowering technique was utilized adhering to the principles of ALARA. CT DOSE: 537.48 mGy.cm FINDINGS: No intra or extra-axial mass lesions are visualized. There is no CT evidence of acute cortical infarction. There is no evidence of midline shift. There is no acute hemorrhage. No calvarial fractures are visualized. There is no evidence of pathologic ventricular dilatation. There is no evidence of acute sinusitis IMPRESSION: Normal noncontrast head CT. Electronically signed by: Aniceto Santoyo M.D. 08/15/2017 6:43 PM Dictated Date/Time: 08/15/2017 6:42 PM
[2017-08-15] MEDS ORDERED: PROC1TAB5 PO (19:57)
[2017-08-15] MEDS ORDERED: KETO10TA PO (19:57)
[2017-08-15 20:06] VITALS: BP 109/58; PULSE 60; O2SAT 98
== END 2017-08-15 20:06 | disposition home or self-care (01) ==
LOC: C.EDB 16:27 → C.EDC 20:06
DX: R51 Headache (principal); R07.9 Chest pain, unspecified; Z79.899 Other long term (current) drug therapy; Z82.49 Family history of ischemic heart disease and other diseases of the circulatory system; J45.909 Unspecified asthma, uncomplicated

== ENCOUNTER 2017-12-22 06:48 | Observation (INO) | payer OTHER ==
[2017-12-17 11:33] VITALS: BMI 23.0
[~2017-12-22] VITALS: Ht 167.6 cm; Wt 66.3 kg
[2017-12-22] VITALS (8 sets, daily range): BP systolic 97–116; BP diastolic 49–76; PULSE 56–85; TEMP 36.4–37; O2SAT 95–100; Ht 167.6 cm; Wt 66.3 kg
[~2017-12-22 06:48] MED LIST changes: +LACTATED RINGER'S 1000ML 1,000 ML IV SCH; +METO-478 PO; +SUMA100T15 PO
[2017-12-22] MEDS ORDERED: ATROPINE SULFATE 0.1 MG/ML 5ML SYR IV PRN (07:00)
[2017-12-22] MEDS ORDERED: FENTANYL CITRATE INJ 50 MCG/1 ML 2 ML VIAL IV PRN (07:00)
[2017-12-22] MEDS ORDERED: LABETALOL HCL IV 5 MG/ML 20ML IV PRN (07:00)
[2017-12-22] MEDS ORDERED: ONDANSETRON INJ 2 MG/ML 2 ML VIAL IV PRN (07:00)
--- NOTE | 2017-12-22 07:51 | History and Physical ---
History & Physical Date Dec 22, 2017. Chief Complaint palpitations History of Present Illness The patient is a 22 year old female with complaints of palpitations Past Medical/Surgical History Medical Problems: (1) Asthma Additional History Hepatic Disease: No Endocrine Disorder: No Kidney Disease: No Hypertension: No Heart Disease: No Bleeding Tendencies: No Infectious Diseases: No Allergies Coded Allergies: Latex (Verified Allergy, Mild, RASH, 12/22/17) Home Medications Scheduled Albuterol Hfa (Ventolin Hfa), 2 PUFFS PO UD Medroxyprogesterone Acetate (Depo-Provera), 400 MG INJ Q3MO Scheduled PRN Albuterol Sulf (Proventil 0.083% 2.5MG/3ML), 3 ML NEB UD PRN for SOB/Wheezing Sumatriptan Succinate (Imitrex), 1 TAB PO UD PRN for Migraine Physical Examination Skin: warm/dry, no rash Eyes: normal inspection ENT: normal ENT inspection Head: normocephalic, atraumatic Neck: supple Respiratory/Chest: lungs clear, normal breath sounds Cardiovascular: regular rate, rhythm, no edema, no murmur Abdomen / GI: normal bowel sounds Neurologic/Psych: alert, oriented x 3 Diagnosis 1. SVT 2. palpitations 3. asthma ASA Classification: ASA Class II Plan of Treatment pt for EPS with possible ablation rediscussed the procedure and potential risks of the procedure with the patient again today; consent obtained
[2017-12-22] MEDS ORDERED: MIDAZOLAM HCL 1 MG/ML 2ML VIAL ONE ×3 (07:56→11:25)
[2017-12-22] MEDS ORDERED: FENTANYL CITRATE INJ 50 MCG/1 ML 2 ML VIAL ONE ×2 (07:57→11:57)
[2017-12-22] MEDS ORDERED: PROPOFOL IV EMULSION 10 MG/ML 20 ML VIAL ONE ×2 (08:48→11:27)
[2017-12-22] MEDS ORDERED: ISOPROTERENOL 200 MCG / 50ML D5W ONE (09:27)
--- NOTE | 2017-12-22 12:22 | [facility] Post Operative Brief Note ---
Immediate Operative Summary Operative Date Dec 22, 2017. Pre-Operative Diagnosis svt Post-Operative Diagnosis typical AVNRT Procedure(s) Performed EPS, isoprel drug infusion, 3d mapping of His bundle, slow pathway modification Surgeon luc mahajan Dean Of Student Services Surgeon(s) none Estimated Blood Loss <5cc Findings See Below see official report Fluids (cc crystalloids) 750 Specimens none Drains None Anesthesia Type MAC Complication(s) none Disposition Accompanied Pt To Recover: yes Disposition: PCU Overlapping Procedure I was present for: the critical portions of procedure. I was immediately available: during the entire case Back up surgeon: was not required during procedure
--- NOTE | 2017-12-22 12:28 | Discharge Instructions ---
Discharge Instructions Date of Service Dec 22, 2017. Admission Reason for Admission: Paroxysmal Supraventricular Tachycardia, Ablation Discharge Discharge Diagnosis / Problem: typical avnrt s/p slow pathway modification Discharge Goals Goal(s): Improve function Activity Recommendations Activity Limitations: as noted below Lifting Limitations: no more than 10 pounds (no heavy lifting or squatting for 1 week) Shower/Bathe: no limitations Driving or Machine Use: resume 1 day after discharge . Instructions / Follow-Up Instructions / Follow-Up ACTIVITY RECOMMENDATIONS: It is common to feel weak and fatigue for a few days. * Do not drive or operate any motorized equipment for the next 1 day. * Limit stair usage (2 or 3 trips a day only) for the next 2 days. * Do not lift anything heavier than 10 pounds for the next 7 days. * Do not engage in vigorous exercise or any sports for the next 7 days. * You may shower the day after your procedure, but do not immerse the area for three days. Cleanse the site gently with soap and water. SPECIAL CARE INSTRUCTIONS: * You may replace the pressure dressing or band-aid the morning after the procedure. * After your procedure, it is normal to have a small bruise or small lump at the site. Examine your site daily for any change in the bruise or lump, redness, swelling, drainage or numbness. Notify your doctor if any change. BLEEDING: * If there is a small amount of bleeding at the site, lie down and apply firm pressure with a clean cloth for ten minutes. When the bleeding stops, lie quietly keeping the procedure limb straight for six hours. Notify your doctor as soon as possible. * If the bleeding does not stop after ten minutes or if there is a large amount of bleeding or spurting, call 911 immediately. Continue to lie down and hold firm pressure until help arrives. SKIN IRRITATION: * You may experience some redness and/or swelling in the area where radiation was administered. If any skin irritation occurs, please contact your family physician. FOLLOW UP VISIT: Keep any scheduled doctor appointments. Current Hospital Diet Patient's current hospital diet: Regular Diet Discharge Diet Recommended Diet: Regular Diet Procedures Procedures Performed: EPS, isoprel drug infusion, 3d mapping of His bundle, slow pathway modification Pending Studies Studies pending at discharge: no Medical Emergencies . Who to Call and When: Medical Emergencies: If at any time you feel your situation is an emergency, please call 911 immediately. . Non-Emergent Contact Non-Emergency issues call your: Patient Care Representative . . "Provider Documentation" section prepared by [place] [facility]. .
--- NOTE | 2017-12-22 12:32 | Discharge Summary ---
Discharge Summary Date of Service Dec 22, 2017. Discharge Summary Admission Date: 12/22/2017 Discharge Date: Dec 23, 2017 Discharge Disposition: Home Principal Diagnosis: Typical AVNRT s/p slow pathway modification Secondary Diagnoses/Problems: asthma Procedures: EPS, isprel drug challenge, 3d mapping of his bundle, slow pathway modification Medication Reconciliation Continued Medications: Albuterol Hfa (Ventolin Hfa) 200 Puffs/35443 Mcg Aers 2 PUFFS PO UD for SOB/Wheezing Albuterol Sulf (Proventil 0.083% 2.5MG/3ML) 2.5 Mg/3 Ml Nebu 3 ML NEB UD PRN for SOB/Wheezing Medroxyprogesterone Acetate (Depo-Provera) 400 Mg/Ml Inj 400 MG INJ Q3MO Sumatriptan Succinate (Imitrex) 100 Mg Tab 1 TAB PO UD PRN for Migraine, #9 TAB 3 Refills Admission Information Physical Exam (per Admitting): aaox3, NAD NC/AT, EOMI Supple, No JVD NRL S1/S2, no murmur CTA b/l No w/r/r soft NT/ND No edema b/l No focal deficits Skin intact Hospital Course Pt admitted for elective EPS due to SVT; found to have typical AVNRT s/p slow pathway modification without any complications. Monitored overnight and discharged home. Total time spent on discharge = > 30 minutes This includes examination of the patient, discharge planning, medication reconciliation, and communication with other providers. Discharge Instructions ACTIVITY RECOMMENDATIONS: It is common to feel weak and fatigue for a few days. * Do not drive or operate any motorized equipment for the next day. * Limit stair usage (2 or 3 trips a day only) for the next 7 days. * Do not lift anything heavier than 10 pounds for the next 7 days. * Do not engage in vigorous exercise or any sports for the next 7 days. * You may shower the day after your procedure, but do not immerse the area for three days. Cleanse the site gently with soap and water. SPECIAL CARE INSTRUCTIONS: * You may replace the pressure dressing or band-aid the morning after the procedure. * After your procedure, it is normal to have a small bruise or small lump at the site. Examine your site daily for any change in the bruise or lump, redness, swelling, drainage or numbness. Notify your doctor if any change. BLEEDING: * If there is a small amount of bleeding at the site, lie down and apply firm pressure with a clean cloth for ten minutes. When the bleeding stops, lie quietly keeping the procedure limb straight for six hours. Notify your doctor as soon as possible. * If the bleeding does not stop after ten minutes or if there is a large amount of bleeding or spurting, call 911 immediately. Continue to lie down and hold firm pressure until help arrives. SKIN IRRITATION: * You may experience some redness and/or swelling in the area where radiation was administered. If any skin irritation occurs, please contact your family physician. FOLLOW UP VISIT: Keep any scheduled doctor appointments.
--- NOTE | 2017-12-22 13:29 | Anesthesiology Progress Note ---
Anesthesia Post Op Note Date & Time Dec 22, 2017 at 13:29 Vital Signs Pain Intensity: 0 Vital Signs Past 12 Hours Date Time Temp Pulse Resp B/P (MAP) Pulse Ox O2 Delivery O2 Flow Rate FiO2 12/22/17 12:55 36.4 69 16 97/67 95 Room Air 12/22/17 12:35 69 16 101/60 (74) 95 Room Air 12/22/17 12:20 69 16 104/60 (75) 95 Room Air 12/22/17 07:15 37.0 61 16 116/49 (71) 99 Room Air Notes Mental Status: alert / awake / arousable, participated in evaluation Pt Amnestic to Procedure: Yes Nausea / Vomiting: adequately controlled Pain: adequately controlled Airway Patency, RR, SpO2: stable & adequate BP & HR: stable & adequate Hydration State: stable & adequate Anesthetic Complications: no major complications apparent
[2017-12-22] MEDS ORDERED: IV FLUIDS COMPLETED PRN (16:00)
[2017-12-22] MEDS ORDERED: ACETAMINOPHEN 325 MG TAB ONE (16:54)
[2017-12-22] MEDS ORDERED: NURSING VERBAL MED ORDER ONE ×3 (17:00→21:15)
[2017-12-22] MEDS ORDERED: ACETAMINOPHEN 325 MG TAB PO PRN (17:30)
[2017-12-23 02:51] VITALS: BP 98/60; PULSE 70; TEMP 36.5; O2SAT 98
[2017-12-23] MEDS: ACETAMINOPHEN 325 MG TAB PO PRN ×2 (03:45→09:31)
[2017-12-23 06:55] VITALS: BP 94/58; PULSE 59; TEMP 36.8; O2SAT 98
[2017-12-23 09:47] VITALS: BP 94/58; PULSE 59; TEMP 36.8; O2SAT 98
--- NOTE | 2017-12-23 10:11 | Anesthesiology Progress Note ---
Anesthesia Post Op Note Date & Time Dec 23, 2017 at 10:11 Vital Signs Pain Intensity: 5.0 Vital Signs Past 12 Hours Date Time Temp Pulse Resp B/P (MAP) Pulse Ox O2 Delivery O2 Flow Rate FiO2 12/23/17 09:47 36.8 59 18 98 Room Air 12/23/17 06:55 36.8 59 18 94/58 (70) 98 Room Air 12/23/17 02:51 36.5 70 17 98/60 (73) 98 Room Air 12/22/17 23:30 36.8 56 15 114/71 (85) 98 Room Air Notes Mental Status: alert / awake / arousable, participated in evaluation Pt Amnestic to Procedure: Yes Nausea / Vomiting: adequately controlled Pain: adequately controlled Airway Patency, RR, SpO2: stable & adequate BP & HR: stable & adequate Hydration State: stable & adequate Anesthetic Complications: no major complications apparent
--- NOTE | 2017-12-23 17:44 | OPERATIVE REPORT ---
DATE OF OPERATION: 12/23/2017 PREOPERATIVE DIAGNOSIS: Supraventricular tachycardia. POSTOPERATIVE DIAGNOSIS: Typical atrioventricular nimesh reentrant tachycardia. PROCEDURE: Electrophysiology study, isuprel drug challenge, 3D mapping of the His bundle region, radiofrequency ablation for slow pathway modification. SURGEON: [place] Pool DO ASSISTANTS: None. ANESTHESIA: Monitored anesthetic care administered by anesthesiology. Total of 6 mg of Versed and 150 mcg of fentanyl and 1500 mg of Propofol. IV FLUIDS: 750 mL. BLOOD LOSS: Less than 5 mL COMPLICATIONS: None. CONDITION: Stable. URINE OUTPUT: Not applicable. SPECIMENS: None. FINDINGS: See below. DRAINS: None. SURGEON: Indiana Pool DO INDICATIONS: This is a 22-year-old female who has a past medical history for palpitations and asthma. She wore a monitor and was found to have SVT and was recommended electrophysiology study with possible ablation. CONSENT: Consent was obtained prior to the patient going to the electrophysiology lab. The patient was informed the risks, benefits, alternatives of the procedure. Risks include but not limited to sudden cardiac , cardiac arrhythmias, cerebrovascular accident, myocardial infarction, injury to the blood vessels, chamber of the heart or the [place] electrical system where she would need a permanent pacemaker, bleeding, and infection. The patient understood these risks and agreed to the procedure as planned. Informed consent was obtained. DESCRIPTION OF THE PROCEDURE: The patient was brought into the electrophysiology lab in a fasting state. She was connected to continuous monitoring and evaluation advisor. A timeout was performed to ensure the patient's identity and procedure correctly. The patient was prepped and draped over the bilateral groins in normal surgical standard fashion. Monitored anesthetic care was given throughout the procedure for the patient's comfort level via anesthesiology. [place] precautions were maintained throughout the procedure. 10 mL of 1% lidocaine were given in the bilateral groins for local anesthesia. Then, using an ultrasound guidance and modified Seldinger technique, venous access was obtained in the following manner. The left femoral vein had a 6-Tristanian sheath, followed by a Britt quadripolar catheter positioned in the right ventricular apex. A 7-Tristanian sheath followed by a quadripolar hisser catheter positioned over the His bundle region. A 7-Tristanian sheath followed by a [employer] Decapolar DF curve coronary sinus catheter positioned on the coronary sinus. The right femoral vein had a 6-Tristanian sheath, followed by a Britt quadripolar catheter positioned in the high right atrium. Initially, a 4 Tristanian sheath that was ultimately swapped out for an SR0 sheath and a [employer] curve 4 mm ablation catheter. Once all the catheters were in position, electrophysiology study was performed with the following findings: CT interval 182 milliseconds, QRS 92 milliseconds, QT 394 milliseconds. Sinus cycle was 994 milliseconds, AH 100 milliseconds, HV 54 milliseconds. The AV Wenckebach was 600 milliseconds. There was some evidence of dual AV nimesh pathway when I was atrial burst pacing at 600 milliseconds. The fast pathway ERP was 800/560 and 700/560. The AV node ERP was 800/300 and 700/300. Of note, there were a few echo beats at 700/510 and 600/510 as well as double echoes at 700/440. The atrial ERP was 800/200 and 700/220. The right ventricular ERP was 800/280 and 700/260. Giving up to doubles, I was not inducing any arrhythmia, so we started isuprel at 2. Once I had an adequate isuprel response, I was about to start another electrophysiology study on isuprel when an APC came and put her into tachycardia. Looking back, it looks like the tachycardia started after this APC with an AH jump. The tachycardia cycle length was 360 milliseconds. The retrograde atrial conduction was concentric and the time from the right ventricular apex to the high right atrium was 32 milliseconds. With right ventricular entrainment, I had a VAV response. I eventually had to break the tachycardia with matrix to atrial and ventricular pacing. This diagnosed typical AVNRT. We stopped the isuprel. She continued to go spontaneously in the SVT on her own while the isuprel was slowly washing out of her system and every time I had to ventricular pace and sometimes matrix pace to break it. Once the heart rate was back to her baseline, we then set up to do a slow pathway modification. I switched out the 4-Tristanian sheath on the right femoral vein for an SRO and then inserted the ablation catheter. I did 3D mapping of the His bundle region and then placed the catheter on the low right atrium. Of note, when I was 3D mapping the His bundle region, at times I did notice mechanical junctionals as well as at one point there were few seconds of heart block. With the catheter then on the low right atrial septum, we gave a series of radiofrequency paris at 20 siddiqi only for 10-20 seconds at most in duration, but adding up to a good 2-3 minutes total. I then went back and did a post-ablation #1 electrophysiology study with the following findings: CT interval 166 milliseconds, QRS 64 milliseconds, QT 356 milliseconds. Sinus cycle length 966 milliseconds, AH 74 milliseconds, HV 52 milliseconds. AV Wenckebach 480 milliseconds. Fast pathway ERP was 700/410 with 1 echo and then I had 2 echoes at 700/370. With the evidence of the 2 echoes, I stopped and went back to do another series of ablations; this time a little bit higher up than I was before, still remaining at 20 siddiqi. I did have a nice junctionals as I did before and was able to stay on a little bit longer about 20-30 seconds in duration for each burn. After I felt I gave enough, I went back to do another electrophysiology study after ablation #2 with the following findings: CT interval 150 milliseconds, QRS 74 milliseconds, QT 378 milliseconds. Sinus cycle length 934 milliseconds, AH 146 milliseconds, HV 58 milliseconds, AV Wenckebach was 460 milliseconds. The fast pathway ERP was 600/450. At 600/420, I did have 1 echo. The AV node ERP was less than or equal to the atrial ERP. The atrial ERP was 600/250 and 500/250. The right ventricular ERP was 600/240 and 400/230. I gave up to doubles from the high right atrium without any induction of SVT, so I then started isuprel at #2. On isuprel at 2, electrophysiology study had the following findings: CT interval 100 milliseconds, QRS 72 milliseconds, QT 370 milliseconds, sinus cycle length 538 milliseconds, AH 70 milliseconds, HV is 34 milliseconds; however, I did end up inducing SVT again. So, I stopped the isuprel and the SVT was not as sustained and with isuprel as it was washing out before I went back to do another set of ablations, it was not as easily inducible as it was not prior to ablation #1. I then gave another series of ablations a little further up and maybe a little bit more medial, this time at 20 siddiqi. Again, I still had good junctionals and was on for an average of 20 seconds to 30 seconds for each ablation. After I felt like I gave enough, I went back to do post-ablation #3 electrophysiology study with the following findings: CT interval 158 milliseconds, QRS 84 milliseconds, QT 354 milliseconds. Sinus cycle length 802 milliseconds, AH 82 milliseconds, HV 50 milliseconds, AV Wenckebach was 450 milliseconds. Fast pathway ERP was 600/420. The AV node ERP was less than or equal to the atrial. The atrial ERP was 600/250. I did not have any inducible SVT with doubles. Then I started isuprel at 2. When I had an adequate isuprel infusion response, I then repeated electrophysiology study with the following findings: CT interval 122 milliseconds, QRS 78 milliseconds, QT 270 milliseconds. Sinus cycle length 412 milliseconds AH 70 milliseconds, HV 24 milliseconds. The AV Wenckebach was 200 milliseconds. The AV node was less than or equal to the atrial. The atrial ERP was 400/210. I tried up to doubles on isuprel and did not have any inducible SVT. I then stopped the isuprel and during washout, I gave a premature atrial run at 400/290 and she ended up going back into the SVT; was a lot shorter duration maybe about 12 seconds, 15 seconds before it stopped on its own. So I did go back and fourth time just a little bit higher. Again, I got a few junctional paris little bit faster than I would have liked, so I only gave about 2-3 extra paris there and then went back and did electrophysiology study post fourth ablation with the following findings: CT interval 136 milliseconds, QRS 78 milliseconds, QT 350 milliseconds. Sinus cycle length 744 milliseconds, AH 86 milliseconds, HV 54 milliseconds. The AV Wenckebach was 430 milliseconds, the fast pathway ERP was 500/390 and 500/380 with 1 echo beat. The AV node ERP was less than or equal to the atrial. The atrial ERP was 600/250 and 500/230. The right ventricular ERP was 600/260 and 400/240. I gave up to triples from the high rate atrium without any inducible SVT. I opted not to go back on isuprel. I figured my thought process was that she was so easily inducible prior and after my ablation #3, I really was difficult to induce, it was during an isuprel washout and it was not very sustained. I was not comfortable with trying to keep going any more aggressive. I thought let and see how she does clinically and if she does have a recurrence, then we can deal with it, but I would imagine that it would be highly unlikely clinically that she would have any more recurrence and so I deemed that we were successful. All the catheters were removed and the sheaths were pulled with manual compression being held to establish hemostasis. IMPRESSION: 1. 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 2. Evidence of dual atrioventricular nimesh pathway. PLAN: Monitor patient overnight, 12-lead ECG. She is not allowed to do any heavy lifting or squatting for 1 week. She will follow up in my office in 1 month's time. I attest to the content of the Intraoperative Record and any orders documented therein. Any exception s are noted below.
== END 2017-12-23 10:40 | disposition home or self-care (01) ==
LOC: C.EP 06:48 → ENRESERV 10:02 → C.2T 12:24
PROVIDERS: ADMIT Internal Medicine; ATTEND Internal Medicine
DX: I47.1 Supraventricular tachycardia (principal); J45.909 Unspecified asthma, uncomplicated; Z91.040 Latex allergy status

== ENCOUNTER 2017-12-26 16:42 | Emergency (ER) | payer OTHER ==
[~2017-12-26] VITALS: Ht 167.6 cm; Wt 67.5 kg
[~2017-12-26 16:42] MED LIST changes: -LACTATED RINGER'S 1000ML 1,000 ML IV SCH; -METO-478 PO
[2017-12-26 16:45] VITALS: TEMP 36.6; Ht 167.6 cm; Wt 67.5 kg
--- NOTE | 2017-12-26 17:09 | EMERGENCY ROOM VISIT NOTE ---
History Report prepared by Irina: Dot Alfred Under the Supervision of: Dr. Shin Conde D.O. First contact with patient: 16:50 Chief Complaint: SHORTNESS OF BREATH Stated Complaint: CHEST TIGHTNESS, NAUSEA, SOB History of Present Illness The patient is a 22 year old female who presents to the Emergency Room with complaints of sudden shortness of breath starting 5 hours ago. The patient states that she had an ablation done 4 days ago. She states that today she started having chest tightness. She reports that with the chest tightness she was having lightheadedness and nausea. The patient denies arm pain, jaw pain, cough, runny nose, and anything making it better or worse. Patient denies diabetes, hypertension, hyperlipidemia, CAD, history of sudden at a young age, and smoking. Patient denies swelling of calves, recent trips, history of immobilization or recent surgery, prior history of DVT, hemoptysis, history of malignancy, history of smoking, or control/estrogen use. Past records show that the patient had an EP ablation performed by Dr. Pool- Cardiology a few days ago. Source of History: patient Onset: 5 hours ago Position: chest Quality: other (shortness of breath) Timing: other (sudden) Associated Symptoms: + chest pain, + nausea, No cough Note: The patient complains of lightheadedness. The patient denies arm pain, jaw pain , runny nose, anything making it better or worse, and swelling in calves. Review of Systems See HPI for pertinent positives & negatives. A total of 10 systems reviewed and were otherwise negative. Past Medical & Surgical Medical Problems: (1) Asthma (2) AVNRT (AV nimesh re-entry tachycardia) Surgical Problems: (1) Hx of prior ablation treatment Family History Cancer Diabetes mellitus Gallbladder disease Heart disease Hypertension Social History Smoking Status: Never Smoker Alcohol Use: none Drug Use: none Marital Status: single Housing Status: lives alone Occupation Status: student Current/Historical Medications Scheduled Albuterol Hfa (Ventolin Hfa), 2 PUFFS PO UD Medroxyprogesterone Acetate (Depo-Provera), 400 MG INJ Q3MO Scheduled PRN Albuterol Sulf (Proventil 0.083% 2.5MG/3ML), 3 ML NEB UD PRN for SOB/Wheezing Sumatriptan Succinate (Imitrex), 1 TAB PO UD PRN for Migraine Allergies Coded Allergies: Latex (Verified Allergy, Mild, RASH, 12/26/17) Physical Exam Vital Signs Date Time Temp Pulse Resp B/P (MAP) Pulse Ox O2 Delivery O2 Flow Rate FiO2 12/26/17 20:42 63 16 98/63 98 Room Air 12/26/17 19:11 53 16 110/66 99 Room Air 12/26/17 17:15 Room Air 12/26/17 16:57 54 12/26/17 16:45 36.6 88 20 130/84 99 Room Air Physical Exam GENERAL: Sitting up in bed, alert, well appearing, well nourished, no distress, non-toxic EYE EXAM: normal conjunctiva. OROPHARYNX: no exudate, no erythema, lips, buccal mucosa, and tongue normal and mucous membranes are moist NECK: supple, no nuchal rigidity, no adenopathy, non-tender LUNGS: Clear to auscultation. Normal chest wall mechanics HEART: no murmurs, S1 normal and S2 normal ABDOMEN: abdomen soft, non-tender, normo-active bowel sounds, no masses, no rebound or guarding. BACK: Back is symmetrical on inspection and there is no deformity, no midline tenderness, no CVA tenderness. : Bilateral needle puncture sites with minimal swelling and bruising. SKIN: no rashes and no bruising UPPER EXTREMITIES: upper extremities are grossly normal. Radial pulses are equal bilaterally. LOWER EXTREMITIES: No pitting edema. Calves are equal bilaterally. NEURO EXAM: Normal sensorium, cranial nerves II-XII grossly intact, normal speech, no gross weakness of arms, no gross weakness of legs. Medical Decision & Procedures ER Provider Diagnostic Interpretation: Radiology results as stated below per my review and the radiologist's interpretation: CHEST ONE VIEW PORTABLE CLINICAL HISTORY: Chest pain. COMPARISON STUDY: Chest radiograph August 15, 2017. FINDINGS: Lung volumes are normal. There is no pneumothorax or pleural effusion. There is no consolidation or evidence for pulmonary edema. Cardiac size is normal. Mediastinal contours are normal. IMPRESSION: No acute cardiopulmonary findings. Electronically signed by: Antonio Jimenez M.D. 12/26/2017 5:33 PM Dictated Date/Time: 12/26/2017 5:33 PM Laboratory Results 12/26/17 16:55 Red Blood Count 4.82, Mean Corpuscular Volume 84.2, Mean Corpuscular Hemoglobin 28.0, Mean Corpuscular Hemoglobin Concent 33.3, Mean Platelet Volume 10.6, Neutrophils (%) (Auto) 59.1, Lymphocytes (%) (Auto) 27.1, Monocytes (%) (Auto) 10.8, Eosinophils (%) (Auto) 2.5, Basophils (%) (Auto) 0.4, Neutrophils # (Auto ) 4.32, Lymphocytes # (Auto) 1.98, Monocytes # (Auto) 0.79, Eosinophils # (Auto ) 0.18, Basophils # (Auto) 0.03 12/26/17 16:55 Test 12/26/17 16:55 12/26/17 19:21 White Blood Count 7.31 K/uL (4.8-10.8) Red Blood Count 4.82 M/uL (4.2-5.4) Hemoglobin 13.5 g/dL (12.0-16.0) Hematocrit 40.6 % (37-47) Mean Corpuscular Volume 84.2 fL (80-100) Mean Corpuscular Hemoglobin 28.0 pg (25-34) Mean Corpuscular Hemoglobin Concent 33.3 g/dl (32-36) Platelet Count 177 K/uL (130-400) Mean Platelet Volume 10.6 fL (7.4-10.4) Neutrophils (%) (Auto) 59.1 % Lymphocytes (%) (Auto) 27.1 % Monocytes (%) (Auto) 10.8 % Eosinophils (%) (Auto) 2.5 % Basophils (%) (Auto) 0.4 % Neutrophils # (Auto) 4.32 K/uL (1.4-6.5) Lymphocytes # (Auto) 1.98 K/uL (1.2-3.4) Monocytes # (Auto) 0.79 K/uL (0.11-0.59) Eosinophils # (Auto) 0.18 K/uL (0-0.5) Basophils # (Auto) 0.03 K/uL (0-0.2) RDW Standard Deviation 41.7 fL (36.4-46.3) RDW Coefficient of Variation 13.6 % (11.5-14.5) Immature Granulocyte % (Auto) 0.1 % Immature Granulocyte # (Auto) 0.01 K/uL (0.00-0.02) Anion Gap 8.0 mmol/L (3-11) Est Creatinine Clear Calc Drug Dose 104.1 ml/min Estimated GFR () 122.2 Estimated GFR (Non- 105.4 BUN/Creatinine Ratio 14.4 (10-20) Calcium Level 9.3 mg/dl (8.5-10.1) Total Creatine Kinase 56 U/L (26-192) Creatine Kinase MB < 1.0 ng/ml (0.5-3.6) Creatine Kinase MB Ratio (0-3.0) Troponin I 0.040 ng/ml (0-0.045) Laboratory results per my review. Medications Administered Medications (Trade) Dose Ordered Sig/Reji Route Start Time Stop Time Status Last Admin Dose Admin Sodium Chloride 1,000 ml @ 999 mls/hr Q1H1M STAT IV 12/26/17 17:15 12/26/17 18:15 DC 12/26/17 17:55 999 MLS/HR Ketorolac Tromethamine (Toradol Inj) 30 mg NOW STAT IV 12/26/17 17:15 12/26/17 17:16 DC 12/26/17 17:53 30 MG ECG Per My Interpretation Indication: chest pain Rate (beats per minute): 59 Rhythm: sinus bradycardia Findings: nonspecific-ST abn (lead 3), other (normal axis) Comparison ECG Date: 12/22/2017 Change: no significant change ED Course ED COURSE: Vital signs were reviewed and showed that they were normal. The patients medical record was reviewed The above diagnostic studies were performed and reviewed. ED treatments and interventions as stated above. 1642: The patient was evaluated in room B7. A complete history and physical examination was performed. 1715: Ordered Toradol Inj 30 mg IV, NSS 1000 ml @ 999 mls/hr IV. 1731: I reevaluated the patient and updated her on her test results thus far. 1824: I reviewed the patient's case with Dr. Pool-Cardiology. She is uncertain what to make of the patient's troponin. 1846: I reevaluated the patient and she notes that her chest pain is almost completely resolved. She notes that the pain is worse when she is lying back and lying on her left side. She notes that the pain is better when she is sitting up. 0: I reevaluated the patient and she is doing okay. 2017: I reevaluated the patient and she is feeling much better. 2024: I reviewed the patient's case with Dr. Phillips. He recommends Ibuprofen 600 mg TD for 2 weeks and a follow up appointment with Dr. Pool. 2037: Upon reevaluation, the patient is resting comfortably. I discussed my findings with the patient and she understands and agrees with the treatment plan. Based on the patients age, coexisting illnesses, exam and lab findings the decision to treat as an outpatient was made. The patient remained stable while under my care. The patient appeared well at the time of discharge. Medical Decision Differential diagnoses includes but is not limited to acute coronary syndrome, myocardial infarction, pericarditis, pulmonary embolus, aortic dissection, pneumonia, pneumothorax, musculoskeletal, shingles, esophageal. Patient is a 22-year-old female who had an SVT ablation performed by Dr. Pool here several days ago. She presents to ER for tightness in her chest. She initially notes no exacerbating or remitting factors. EKG was unchanged from previous. She has no cardiac risk factors. Patient denies diabetes, hypertension, hyperlipidemia, CAD, history of sudden at a young age, and smoking. CBC and BMP was unremarkable. Troponins were detectable but negative at 0.0402. Symptoms initially started at 12 PM. On reevaluation she eventually noted that pain is worse when lying flat and laying on the left side. Improves with sitting up. Troponin was negative greater than 6 hours from the onset of symptoms. No cardiac risk factors. With the recent procedure in HPI consistent with pericarditis. Discussed with cardiology. Placed on ibuprofen 600 mg 3 times daily 2 weeks. Will follow up with Dr. Pool in the office. Discussed with Pt concerning signs and symptoms to watch out for. Pt was instructed to follow up with their PCP and discussed with the patient their option to return to the ED at anytime for persistent or worsening symptoms. The appropriate anticipatory guidance and out-patient management, including indications for return to the emergency department, were explained at length to the patient and understood. Medication Reconcilliation Current Medication List: was personally reviewed by me Blood Pressure Screening Patient's blood pressure: Normal blood pressure Blood pressure disposition: Did not require urgent referral Consults Time Called: 1815 Consulting Physician: Dr. Bailey Returned Call: 1824 I reviewed the patient's case with Dr. Zazzali-Cardiology. She is uncertain what to make of the patient's troponin. Additional Consults: Time Called: 2019 Consulted Physician: Dr. Mayers-Cardiology Returned Call: 2024 Additional Comments: I reviewed the patient's case with Dr. Phillips. He recommends Ibuprofen 600 mg TD for 2 weeks and a follow up appointment with Dr. Pool. Impression Primary Impression: Pericarditis Scribe Attestation The scribe's documentation has been prepared under my direction and personally reviewed by me in its entirety. I confirm that the note above accurately reflects all work, treatment, procedures, and medical decision making performed by me. Departure Information Dispostion Home / Self-Care Referrals Sim Gore M.D.(JOCELINE) (PCP) Forms HOME CARE DOCUMENTATION FORM, IMPORTANT VISIT INFORMATION Patient Instructions My [facility] Additional Instructions Please follow up with your primary care doctor with in the next 24 hours. Any worsening of your symptoms, please return to the ED immediately. This includes any fevers greater than 100.4, worsening pain, chest pain, shortness breath, persistent nausea, vomiting, unable to eat or drink, or any other concerning signs or symptoms from your standpoint. Please take ibuprofen 600 mg 3 times a day for the next 2 weeks with food until directed otherwise by Dr. aleks Pool. Please make sure that you contact her first thing tomorrow morning for follow-up. Problem Qualifiers Primary Impression: Pericarditis Pericarditis type: unspecified type Chronicity: unspecified Qualified Codes : I31.9 - Disease of pericardium, unspecified
[2017-12-26] MEDS ORDERED: SODIUM CHLORIDE 0.9% 1000ML 1,000 ML IV STA (17:15)
[2017-12-26] MEDS ORDERED: KETOROLAC TROMETHAMINE 30 MG/ML VIAL IV STA (17:15)
[2017-12-26 17:16] LABS: BASO % 0.4 %; BASO ABS # 0.03 K/uL (0-0.2); EOS % 2.5 %; EOS ABS # 0.18 K/uL (0-0.5); HEMATOCRIT 40.6 % (37-47); HEMOGLOBIN 13.5 g/dL (12.0-16.0); IG# 0.01 K/uL (0.00-0.02); LYMPH % 27.1 %; LYMPH ABS # 1.98 K/uL (1.2-3.4); MEAN CELL VOLUME 84.2 fL (80-100); MEAN CORPUSCULAR HGB CONC 33.3 g/dl (32-36); MEAN PLATELET VOLUME 10.6 fL (7.4-10.4); MONO % 10.8 %; MONO ABS # 0.79 K/uL (0.11-0.59); NEUT % 59.1 %; NEUT ABS # 4.32 K/uL (1.4-6.5); PLATELET COUNT 177 K/uL (130-400); RED CELL DISTRIBUTION WIDTH CV 13.6 % (11.5-14.5); RED CELL DISTRIBUTION WIDTH SD 41.7 fL (36.4-46.3); WHITE BLOOD COUNT 7.31 K/uL (4.8-10.8)
--- NOTE | 2017-12-26 17:35 | DIAGNOSTIC IMAGING REPORT ---
CHEST ONE VIEW PORTABLE CLINICAL HISTORY: Chest pain. COMPARISON STUDY: Chest radiograph August 15, 2017. FINDINGS: Lung volumes are normal. There is no pneumothorax or pleural effusion. There is no consolidation or evidence for pulmonary edema. Cardiac size is normal. Mediastinal contours are normal. IMPRESSION: No acute cardiopulmonary findings. Electronically signed by: Antonio Jimenez M.D. 12/26/2017 5:33 PM Dictated Date/Time: 12/26/2017 5:33 PM
[2017-12-26 17:59] LABS: BLOOD UREA NITROGEN 12 mg/dl (7-18); CALCIUM 9.3 mg/dl (8.5-10.1); CARBON DIOXIDE 27 mmol/L (21-32); CKMB < 1.0 ng/ml (0.5-3.6); GLUCOSE 98 mg/dl (70-99); POTASSIUM 3.5 mmol/L (3.5-5.1); SODIUM 138 mmol/L (136-145)
[2017-12-26 20:42] VITALS: BP 98/63; PULSE 63; O2SAT 98
== END 2017-12-26 20:50 | disposition home or self-care (01) ==
LOC: C.EDB 16:44
DX: I31.9 Disease of pericardium, unspecified (principal); Z98.890 Other specified postprocedural states; J45.909 Unspecified asthma, uncomplicated; Z80.9 Family history of malignant neoplasm, unspecified; Z83.3 Family history of diabetes mellitus; Z83.79 Family history of other diseases of the digestive system; Z82.49 Family history of ischemic heart disease and other diseases of the circulatory system; Z79.3 Long term (current) use of hormonal contraceptives; Z91.040 Latex allergy status

== ENCOUNTER 2022-03-18 07:37 | Inpatient (IN) ==
[2022-03-18] MEDS ORDERED: LIDOCAINE 1% LOCAL 20 ML VIAL INFIL PRN (09:13)
[2022-03-18] MEDS ORDERED: OXYTOCIN 30 UNITS/500 ML BAG IV PRN ×3 (09:13→23:28)
[2022-03-18 09:52] LABS: Hematocrit (blood only) 36.2 % (34.1-44.9); Hemoglobin 12.3 g/dl (12.0-16.0); Mean Corpuscular Hemoglobin 28.6 pg (25.0-34.0); Mean Corpuscular Volume 84.2 fL (80.0-100.0); Mean Platelet Volume 11.1 fL (9.4-12.3); Platelet Count 204 K/uL (130-400); RDW Coefficient of Variation 14.1 % (11.5-14.5); RDW Standard Deviation 43.4 fL (36.4-46.3); White Blood Count 9.22 K/ul (4.8-10.8)
[2022-03-18] MEDS: LACTATED RINGER'S 1,000 ML IV PRN ×2 (09:59→15:15)
--- NOTE | 2022-03-18 10:13 | History & Physical Report ---
Date of Service March 18, 2022 Assessment & Plan (1) with nephrolithiasis in third trimester: Plan: IUP at 39 weeks in primiparous female with long history of left flank pain and nephrolithiasis during this cervical balloon successfully placed and pitocin augmentation has been initiated. epidural analgesia if and when requested anticipate vaginal . (2) Back pain: Admission and Anticipated Discharge Date Admission Date: March 18, 2022 History of Present Illness Primary Care Provider: Katerine Kelsey MD Patient is a 26 yo female EDC[birth year] who presents at 39 0/7 weeks for elective induction of labor because of ongoing left flank pain. she is currently on Keflex 500 mg qid for treatment of possible kidney infection. she does have a history of kidney and ureteral stones but most recent ultrasound imaging does not show any stones presently. Otherwise is also complicated with episodes of tachycardia associated with dehydration and vomiting they are brief and resolve on their own. she had a catheter ablation for AVNRT in 2018 and has been having episodes of palpitations while that are short lived and asymptomatic. she was also evaluated for possible Von Willebrands because her mother and several other family members were diagnosed with it. her testing shows she does not have Von Willebrands. GBS-negative Bloodtype -AB positive. Allergies Allergy/AdvReac Type Severity Reaction Status Date / Time latex Allergy Intermediate RASH Verified 03/18/22 08:04 Home Medications Medication Instructions Recorded Confirmed Type prenat.vits,fatuma,rvs-puwe-[id number] 1 tab PO DAILY #30 tabs 07/18/21 03/18/22 Rx ondansetron 4 mg disintegrating 4 mg PO Q6H PRN nausea and 01/29/22 03/18/22 Rx tablet vomiting #20 tabs cephalexin 500 mg capsule 500 mg PO Q6H 10 days #40 caps 03/10/22 03/18/22 Rx Lactobacillus acidophilus 10 10,000 mmu cells PO DAILY 03/18/22 03/18/22 History billion cell capsule (Probiotic) Patient History Medical History Anxiety AVNRT (AV nimesh re-entry tachycardia) Migraine headache Mitral valve prolapse stable-unchanged since childhood. Pericarditis SVT (supraventricular tachycardia) Surgical History H/O cardiac radiofrequency ablation No pertinent past surgical history Status post lateral meniscus repair Family History Grandmother (Paternal) Breast cancer Ovarian cancer Diabetes Aunt Breast cancer Mother Colorectal cancer Von Willebrand disease Father Prostate cancer Grandfather (Paternal) Diabetes Heart disease Grandfather (Maternal) Heart disease Denies family history of Myocardial infarction Lung cancer Stroke Social History Smoking Status: Never smoker Second Hand Exposure: No; Hx Alcohol Use: No Hx Substance Use: No Preferred Language: Turkmen Visual Impairment: No Limitations Hearing Ability: Normal Public Address Announcer Required: No Beliefs That Will Affect Care: None marital status: marital status details: Daniel(25) [phone] Current Living Situation: Spouse Current Living Situation Comment: lives with and cat current occupational status: employed current occupation: [employer] Other Information That Helps Us Care for You: No Feels Safe at Home: Yes Safety Concerns: Feels Safe At This Time Childhood Exposure to Second-Hand Smoke: No Dental Care, Regularly: Yes Seatbelt Use: always Sunscreen Use: Yes Assistive Devices: Glasses Review of Systems All systems reviewed & are unremarkable except as noted in HPI & below Physical Exam Constitutional: WD/WN, vitals as above Psychiatric: A+Ox3, euthymic affect Genitourinary: OB Exam Abdomen: + vertex, + estimated weight (7-8 pounds) and + irregular contractions Manual OB Exam: + cervical dilation fingertip, + cervical effacement 70% and + station -2 OB Exam Monitor Tracing: + external FHT monitor used, + external uterine monitor used, + category I and + normal FHT variability after reviewing the process for insertion of a cervical balloon, and her questions were answered to her satisfaction she gave consent to proceed. A cervical balloon was placed through the internal os under direct visualization and instilled with 40cc sterile water. after the speculum was removed, the catheter was secured to her right thigh under traction. she tolerated the procedure well Results & Data ([facility]) Vital Signs (Past 12 Hours) Vital Signs Temp Pulse Resp BP 03/18/22 07:54 97.9 F 84 18 122/76 Coding Level of Care Code None Diagnoses with nephrolithiasis in third trimester O26.833; N20.0 Back pain M54.9 CPT Codes Misx Procedure Codes - 60614 Placement of cervical dilator: 31499 Placement of cervical dilator ([id number])
[2022-03-18] MEDS: cephALEXin 500 MG CAP PO SCH ×3 (11:06→22:23)
--- NOTE | 2022-03-18 13:56 | Anesthesiology Consultation ---
Date of Service March 18, 2022 Assessment & Plan Chart Review Chart Review: Acceptable Risk for Surgery and Patient NOT seen in Pre Admission Testing ASA ASA3 Proposed Anesthesia Anesthesia Type: Labor Epidural Risk / Benefits Reviewed With: PT / POA / Parent / Guardian, Accepts Plan and Informed Consent Obtained History Height/Weight Height: 5 ft 6 in Weight: 93.894 kg Allergies Allergy/AdvReac Type Severity Reaction Status Date / Time latex Allergy Intermediate RASH Verified 03/18/22 08:04 Medications Home Medications Medication Instructions Recorded Confirmed Last Taken prenat.vits,fatuma,yge-kxaw-qohbe 1 tab PO DAILY #30 tabs 07/18/21 03/18/2212/29 21:00 ondansetron 4 mg disintegrating 4 mg PO Q6H PRN nausea and 01/29/22 03/18/22 03/17/22 12:00 tablet vomiting #20 tabs cephalexin 500 mg capsule 500 mg PO Q6H 10 days #40 caps 03/10/22 03/18/22 03/17/22 21:00 Lactobacillus acidophilus 10 10,000 mmu cells PO DAILY 03/18/22 03/18/22 03/17/22 09:00 billion cell capsule (Probiotic) Active Medications Generic Name Dose Route Start Last Admin Trade Name Freq PRN Reason Stop Dose Admin Cephalexin HCl 500 mg 03/18/22 10:00 03/18/22 11:06 Cephalexin 500 Mg Cap PO 03/28/22 09:59 500 mg Q6H FREDIS Administration Oxytocin 30 units in 500 mls @ 5 mls/hr 03/18/22 09:13 03/18/22 12:10 Pitocin IV 03/20/22 09:12 0.3 units/hr .Q24H PRN 5 mls/hr Labor Induction/Augmentation Titration Protocol 0.3 UNITS/HR Lactated Ringer's 1,000 mls @ 125 mls/hr 03/18/22 09:13 03/18/22 09:59 Lr IV 03/20/22 09:12 125 mls/hr .Q8H PRN Administration L&D Protocol Protocol Past Medical History Medical History Anxiety AVNRT (AV nimesh re-entry tachycardia) Migraine headache Mitral valve prolapse stable-unchanged since childhood. Pericarditis SVT (supraventricular tachycardia) Exercise / Class Metabolic Activity II 4-5 Yardwork/Stairs/Walk up hill Past Family History Family History Grandmother (Paternal) Breast cancer Ovarian cancer Diabetes Aunt Breast cancer Mother Colorectal cancer Von Willebrand disease Father Prostate cancer Grandfather (Paternal) Diabetes Heart disease Grandfather (Maternal) Heart disease Denies family history of Myocardial infarction Lung cancer Stroke Past Surgical History Surgical History H/O cardiac radiofrequency ablation No pertinent past surgical history Status post lateral meniscus repair Past Anesthesia History No Hx of Anesthesia Complications and No Family Hx of Anesthesia Complications History of PONV No Hx of PONV and No Hx of Motion Sickness Social History Smoking Status: Never smoker Hx Alcohol Use: No Alcohol type: beer Hx Substance Use: No substance use type: does not use Review of Systems denies fever/cough/ colds/ chest pain/ SOB/ AMALIA denies AMALIA Physical Exam Vital Signs Last Vital Signs Temp 36.5 C 03/18/22 11:00 Pulse 62 03/18/22 13:06 Resp 18 03/18/22 11:00 BP 113/63 03/18/22 13:06 ENMT Mouth: no TMJ abnormality and no dentition abnormality Thyromental Distance: > or= 3.5 Finger Breadths Mallampati Class: II Neck neck extension not limited Respiratory normal respiratory effort; no respiratory distress Auscultation: lungs clear to auscultation bilaterally Cardiovascular Rate/Rhythm: regular rate and regular rhythm Neurologic moves all extremities Psychiatric Orientation: alert and oriented x 3 Testing Laboratory Results 03/18/22 09:18
[2022-03-18] MEDS ORDERED: SODIUM CHLORIDE 0.9% INJ 10 ML VIAL ONE (14:54)
[2022-03-18] MEDS ORDERED: ePHEDrine sulfate 50 MG/ML AMP ONE (14:54)
[2022-03-18] MEDS ORDERED: fentaNYL citrate 100 MCG/2 ML VIAL ONE (14:54)
[2022-03-18] MEDS ORDERED: LIDOCAINE 2%/EPINEPHRINE 1:200,000 20 ML SDV ONE (14:55)
[2022-03-18] MEDS ORDERED: fentaNYL 2MCG/ML ROPIVACAINE 1.25MG/ML 100 ML BAG EPI ONE (14:55)
[2022-03-18] MEDS ORDERED: BUPIVACAINE 0.25% 30 ML VIAL ONE (14:55)
[2022-03-18] MEDS ORDERED: NALOXONE HCL 0.4 MG/1 ML VIAL/CARP IV PRN (15:06)
[2022-03-18] MEDS ORDERED: ePHEDrine sulfate 50 MG/ML AMP IV PRN (15:06)
[2022-03-18] MEDS ORDERED: fentaNYL 2MCG/ML ROPIVACAINE 1.25MG/ML 100 ML BAG EPI PRN (15:06)
[2022-03-18] MEDS ORDERED: NALOXONE HCL 1 MG in SODIUM CHLORIDE 0.9% 1000ML 1,000 ML IV PRN (15:06)
[2022-03-18] MEDS ORDERED: ONDANSETRON INJ 2 MG/ML 2 ML VIAL IV PRN (15:06)
[2022-03-18] MEDS ORDERED: diphenhydrAMINE 50 MG/ML VIAL IV PRN (15:06)
[2022-03-18] MEDS ORDERED: NALBUPHINE HCL INJ 10 MG/ML AMP IV PRN (15:06)
--- NOTE | 2022-03-18 15:06 | Anesthesiology Consultation ---
Date of Service March 18, 2022 Assessment & Plan ASA ASA2 Proposed Anesthesia Anesthesia Type: Labor Epidural Risk / Benefits Reviewed With: PT / POA / Parent / Guardian, Accepts Plan and Informed Consent Obtained History Height/Weight Height: 5 ft 6 in Weight: 93.894 kg Allergies Allergy/AdvReac Type Severity Reaction Status Date / Time latex Allergy Intermediate RASH Verified 03/18/22 08:04 Medications Home Medications Medication Instructions Recorded Confirmed Last Taken prenat.vits,fatuma,prt-udld-wpjkf 1 tab PO DAILY #30 tabs 07/18/21 03/18/22 03/17/22 21:00 ondansetron 4 mg disintegrating 4 mg PO Q6H PRN nausea and 01/29/22 03/18/22 03/17/22 12:00 tablet vomiting #20 tabs cephalexin 500 mg capsule 500 mg PO Q6H 10 days #40 caps 03/10/22 03/18/22 03/17/22 21:00 Lactobacillus acidophilus 10 10,000 mmu cells PO DAILY 03/18/22 03/18/22 03/17/22 09:00 billion cell capsule (Probiotic) Active Medications Generic Name Dose Route Start Last Admin Trade Name Freq PRN Reason Stop Dose Admin Cephalexin HCl 500 mg 03/18/22 10:00 03/18/22 11:06 Cephalexin 500 Mg Cap PO 03/28/22 09:59 500 mg Q6H FREDIS Administration Oxytocin 30 units in 500 mls @ 7 mls/hr 03/18/22 09:13 03/18/22 14:00 Pitocin IV 03/20/22 09:12 0.42 units/hr .Q24H PRN 7 mls/hr Labor Induction/Augmentation Titration Protocol 0.42 UNITS/HR Lactated Ringer's 1,000 mls @ 125 mls/hr 03/18/22 09:13 03/18/22 15:33 Lr IV 03/20/22 09:12 125 mls/hr .Q8H PRN Infusion L&D Protocol Protocol Past Medical History Medical History Anxiety AVNRT (AV nimesh re-entry tachycardia) Migraine headache Mitral valve prolapse stable-unchanged since childhood. Pericarditis SVT (supraventricular tachycardia) Exercise / Class Metabolic Activity II 4-5 Yardwork/Stairs/Walk up hill Past Family History Family History Grandmother (Paternal) Breast cancer Ovarian cancer Diabetes Aunt Breast cancer Mother Colorectal cancer Von Willebrand disease Father Prostate cancer Grandfather (Paternal) Diabetes Heart disease Grandfather (Maternal) Heart disease Denies family history of Myocardial infarction Lung cancer Stroke Past Surgical History Surgical History H/O cardiac radiofrequency ablation No pertinent past surgical history Status post lateral meniscus repair Past Anesthesia History No Hx of Anesthesia Complications and No Family Hx of Anesthesia Complications History of PONV No Hx of PONV and No Hx of Motion Sickness Social History Smoking Status: Never smoker Hx Alcohol Use: No Alcohol type: beer Hx Substance Use: No substance use type: does not use Review of Systems denies fever/cough/ colds/ chest pain/ SOB/ AMALIA denies AMALIA Physical Exam Vital Signs Last Vital Signs Temp 36.5 C 03/18/22 14:30 Pulse 59 L 03/18/22 16:17 Resp 18 03/18/22 14:30 BP 92/58 L 03/18/22 16:12 Pulse Ox 96 03/18/22 16:17 ENMT Mouth: no TMJ abnormality and no dentition abnormality Thyromental Distance: > or= 3.5 Finger Breadths Mallampati Class: II Neck neck extension not limited Respiratory normal respiratory effort; no respiratory distress Auscultation: lungs clear to auscultation bilaterally Cardiovascular Rate/Rhythm: regular rate and regular rhythm Neurologic moves all extremities Psychiatric Orientation: alert and oriented x 3 Testing Laboratory Results 03/18/22 09:18
--- NOTE | 2022-03-18 22:08 | Anesthesiology Progress Note ---
Date of Service March 18, 2022 Anesthesia Post Procedure Vital Signs Vital Signs: Temp Pulse Resp BP Pulse Ox O2 Del Method 03/18/22 20:50 18 03/18/22 19:05 Room Air 03/18/22 16:30 36.4 C L 03/18/22 17:00 20 03/18/22 16:45 18 03/18/22 16:30 18 03/18/22 16:15 18 03/18/22 17:15 20 03/18/22 16:00 20 03/18/22 22:06 93 H 105/61 03/18/22 21:51 70 101/61 03/18/22 21:37 66 106/63 03/18/22 20:00 18 03/18/22 20:00 18 03/18/22 21:21 92 H 101/56 L 03/18/22 21:06 81 102/62 03/18/22 20:50 76 121/56 L 03/18/22 20:47 76 95 03/18/22 20:37 91 H 95 03/18/22 20:30 154 H 84 L 03/18/22 20:27 131 H 98 03/18/22 20:21 155 H 85 L 03/18/22 20:17 153 H 99 03/18/22 20:07 101 H 98 03/18/22 19:57 121 H 99 03/18/22 19:47 62 98 03/18/22 19:45 79 104/61 03/18/22 19:37 56 L 97 03/18/22 19:30 60 18 105/59 L 03/18/22 19:27 60 96 03/18/22 19:17 61 98 03/18/22 19:16 55 L 105/62 03/18/22 19:05 18 03/18/22 19:05 36.6 C 18 03/18/22 19:07 57 L 97 03/18/22 19:00 57 L 105/62 03/18/22 18:57 57 L 96 03/18/22 18:47 58 L 97 03/18/22 18:46 57 L 108/63 03/18/22 18:30 36.7 C 20 03/18/22 17:30 18 03/18/22 17:30 18 03/18/22 18:37 59 L 98 03/18/22 18:31 57 L 105/63 03/18/22 18:27 57 L 99 03/18/22 18:17 97 03/18/22 18:17 62 03/18/22 18:16 61 91 03/18/22 18:17 57 L 109/62 03/18/22 18:10 71 90 03/18/22 18:07 67 99 03/18/22 18:00 70 20 91 03/18/22 17:57 100 H 101/61 97 03/18/22 17:54 59 L 100/60 03/18/22 17:49 56 L 100/57 L 03/18/22 17:47 58 L 98 03/18/22 17:44 58 L 102/63 03/18/22 17:37 63 97 03/18/22 17:38 68 96/58 L 03/18/22 17:32 55 L 97/55 L 03/18/22 17:27 64 100/57 L 99 03/18/22 17:17 57 L 99/59 L 98 03/18/22 17:12 58 L 93/53 L 03/18/22 17:07 59 L 97 03/18/22 17:08 55 L 96/54 L 03/18/22 17:02 57 L 96/52 L 03/18/22 16:57 97 03/18/22 16:57 65 03/18/22 16:57 57 L 106/56 L 03/18/22 16:52 58 L 101/58 L 03/18/22 16:48 60 104/55 L 03/18/22 16:47 57 L 98 03/18/22 16:46 69 94 03/18/22 16:42 72 99/51 L 03/18/22 16:41 57 L 101/58 L 03/18/22 16:38 61 169/123 H 03/18/22 16:37 62 97 03/18/22 16:33 60 103/56 L 03/18/22 16:27 63 97 03/18/22 16:28 64 100/55 L 03/18/22 16:22 71 109/60 03/18/22 16:18 65 108/57 L 03/18/22 16:17 59 L 96 03/18/22 16:12 75 92/58 L 03/18/22 16:07 75 101/59 L 03/18/22 16:05 73 98/61 L 03/18/22 16:03 96 03/18/22 16:03 79 03/18/22 16:03 74 95/57 L 03/18/22 16:01 80 116/61 03/18/22 15:58 67 96 03/18/22 15:59 68 98/58 L 03/18/22 15:57 67 95/53 L 03/18/22 15:55 63 101/59 L 03/18/22 15:53 62 103/54 L 98 03/18/22 15:48 76 99 03/18/22 15:43 65 97 03/18/22 15:38 65 98 03/18/22 15:33 68 97 03/18/22 15:28 69 98 03/18/22 15:23 90 99 03/18/22 15:18 64 97 03/18/22 15:13 67 97 03/18/22 15:08 75 98 03/18/22 15:07 64 116/68 03/18/22 15:03 67 96 03/18/22 14:30 18 03/18/22 14:30 36.5 C 18 03/18/22 14:06 63 116/70 03/18/22 13:06 62 113/63 03/18/22 12:10 64 123/76 03/18/22 11:00 18 03/18/22 11:00 36.5 C 18 03/18/22 11:07 72 119/64 03/18/22 10:06 66 118/75 03/18/22 07:54 36.6 C 84 18 122/76 Pain Intensity Episiotomy/Laceration: Pain Intensity: 0 Transfer of Care Handoff Completed per policy Notes Mental Status: alert / awake / arousable and participated in evaluation Patient Amnestic to Procedure: Yes Nausea / Vomiting: adequately controlled Pain: adequately controlled Airway Patency, RR, SpO2: stable & adequate BP & HR: stable & adequate Hydration State: stable & adequate Anesthetic Complications: no major complications apparent and Pt Satisfied with anesthetic care
--- NOTE | 2022-03-18 22:08 | Anesthesia Procedure Note ---
Date of Service March 18, 2022 Anesthesia Post Epidural Note Vital Signs Vital Signs: Temp Pulse Resp BP Pulse Ox O2 Del Method 36.6 C 93 H 18 105/61 95 03/18/22 19:05 03/18/22 22:06 03/18/22 20:50 03/18/22 22:06 03/18/22 20:47 03/18/22 19:05 Pain Intensity Episiotomy/Laceration: Pain Intensity: 0 Notes Mental Status: alert / awake / arousable and participated in evaluation Nausea / Vomiting: adequately controlled Pain: adequately controlled Airway Patency, RR, SpO2: stable & adequate BP & HR: stable & adequate Hydration State: stable & adequate Neuraxial Anesthesia: was administered and sensory block is resolving Anesthetic Complications: no major complications apparent and Pt Satisfied with anesthetic care Epidural: Removed without complications and With tip intact
--- NOTE | 2022-03-18 22:27 | Delivery Summary ---
Vaginal Delivery Summary Date of Service March 18, 2022 Vaginal Delivery Summary and 1st Degree LAC Patient is a 26-year-old 1 P0 female who presents at 39 weeks for elective induction because of chronic flank pain. A cervical balloon was successfully placed on the morning of the induction. Pitocin augmentation of her labor was begun and after the balloon was expelled, membranes were actively ruptured for clear fluid. She received effective epidural analgesia, and p rogressed to complete dilation with urge to push. She pushed effectively over intact perineum for delivery of a viable female . After the head was delivered the rest the infant delivered easily. She was placed on the mother's abdomen for further attention and drying she was vigorous and moving all 4 limbs. After cord blood was obtained, the placenta was expressed intact with a three-vessel cord. bleeding was controlled with dilute Pitocin and fundal massage. A first-degree perineal laceration was repaired with 3-0 chromic in the usual fashion. Estimated blood loss 200 cc. Mother and were doing well post delivery. MNP Vaginal Delivery Charge Delivery Type Details: and 1st Degree LAC
[2022-03-18] MEDS ORDERED: HYDROCORTISONE ACETATE 25 MG SUPP PR PRN (23:28)
[2022-03-18] MEDS ORDERED: BENZOCAINE 20% AER SPR 82.5 GM CAN EXT PRN (23:28)
[2022-03-18] MEDS ORDERED: DIPHTHERIA/TETANUS/PERTUSSIS 0.5 ML SYR/VIAL IM ONE (23:28)
[2022-03-18] MEDS ORDERED: oxyCODONE/ACETAMINOPHEN 5mg/325mg TAB PO PRN (23:28)
[2022-03-19] MEDS: DOCUSATE SODIUM 100 MG CAP PO SCH ×3 (00:37→20:16)
[2022-03-19] MEDS: IBUPROFEN 600 MG TAB PO PRN ×5 (02:38→20:15)
[2022-03-19] MEDS: cephALEXin 500 MG CAP PO SCH ×4 (04:13→21:35)
--- NOTE | 2022-03-19 06:05 | Obstetrical Progress Note ---
Date of Service March 19, 2022 Assessment & Plan (1) with nephrolithiasis in third trimester: (2) with 37 weeks completed gestation: Plan s/p PPD#1: Vital signs reviewed and WNL, Tmax 36.8 Hemoglobin 12.3 (03/18), 11.4 (03/19) A+, GBS negative, rubella immune Continue regular diet, treat pain as needed Encourage ambulation Discussed discharge- planning to d/c tomorrow Admission and Anticipated Discharge Date Admission Date: March 18, 2022 Supervising Physician Co-Signing Physician Notes Resident Physician Supervision Note: I interviewed and examined the patient. Discussed with Dr. Linares and agree with findings and plan as documented in the note. Any exceptions or c larifications are listed here: [None] Documented By: Kelsie Laguna MD, FACOG Subjective Patrick is a 26 y/o female who is PPD #1 following vaginal delivery at 39 0/7 weeks. She was recently diagnosed with nephrolithiasis in and has a hx of AVNRT. She reports feeling well overall this morning. Some abdominal cramping but pain well managed on analgesics. Voiding without issue. Tolerating meals overnight and able to ambulate some. Has some persistent lochia with some improvement this morning. Currently breast feeding. Review of Systems Constitutional: no fever, no chills and no sweats Respiratory: no cough, no dyspnea and no wheezing Cardiovascular: no chest pain, no palpitations and no calf pain Genitourinary: no dysuria Neurologic: no headache(s) Physical Exam Constitutional: WD/WN, vitals as above no acute distress Respiratory: no respiratory distress Auscultation: lungs clear to auscultation bilaterally; no rales, no rhonchi and no wheezes Cardiovascular: RRR, no murmur, no edema Extremities: no calf tenderness and no edema Negative Andrew's sign bilaterally. Gastrointestinal (Abdomen): Inspection/Auscultation: normal bowel sounds Genitourinary: Uterine fundus firm, below the umbilicus. Results & Data ([facility]) Vital Signs (Past 12 Hours) Vital Signs Temp Pulse Pulse Pulse Resp BP BP 03/19/22 04:15 36.6 C 75 16 03/19/22 02:35 36.7 C 104 H 20 03/18/22 23:15 36.8 C 73 20 107/59 L 03/18/22 23:15 03/18/22 22:50 36.8 C 20 03/18/22 21:35 18 03/18/22 22:20 16 03/18/22 21:50 20 03/18/22 21:20 18 03/18/22 21:05 20 03/18/22 20:50 18 03/18/22 19:05 03/18/22 22:50 73 107/59 L 03/18/22 22:35 83 103/59 L 03/18/22 22:20 81 108/61 03/18/22 22:06 93 H 105/61 03/18/22 21:51 70 101/61 03/18/22 21:37 66 106/63 03/18/22 20:00 18 03/18/22 20:00 18 03/18/22 21:21 92 H 101/56 L 03/18/22 21:06 81 102/62 03/18/22 20:50 76 121/56 L 03/18/22 20:47 76 03/18/22 20:37 91 H 03/18/22 20:30 154 H 03/18/22 20:27 131 H 03/18/22 20:21 155 H 03/18/22 20:17 153 H 03/18/22 20:07 101 H 03/18/22 19:57 121 H 03/18/22 19:47 62 03/18/22 19:45 79 104/61 03/18/22 19:37 56 L 03/18/22 19:30 60 18 105/59 L 03/18/22 19:27 60 03/18/22 19:17 61 03/18/22 19:16 55 L 105/62 03/18/22 19:05 18 03/18/22 19:05 36.6 C 18 03/18/22 19:07 57 L 03/18/22 19:00 57 L 105/62 03/18/22 18:57 57 L 03/18/22 18:47 58 L 03/18/22 18:46 57 L 108/63 03/18/22 18:30 36.7 C 20 03/18/22 18:37 59 L 03/18/22 18:31 57 L 105/63 03/18/22 18:27 57 L 03/18/22 18:17 03/18/22 18:17 62 03/18/22 18:16 61 03/18/22 18:17 57 L 109/62 03/18/22 18:10 71 03/18/22 18:07 67 BP Pulse Ox O2 Del Method 03/19/22 04:15 102/64 Room Air 03/19/22 02:35 113/76 98 Room Air 03/18/22 23:15 Room Air 03/18/22 23:15 Room Air 03/18/22 22:50 03/18/22 21:35 03/18/22 22:20 03/18/22 21:50 03/18/22 21:20 03/18/22 21:05 03/18/22 20:50 03/18/22 19:05 Room Air 03/18/22 22:50 03/18/22 22:35 03/18/22 22:20 03/18/22 22:06 03/18/22 21:51 03/18/22 21:37 03/18/22 20:00 03/18/22 20:00 03/18/22 21:21 03/18/22 21:06 03/18/22 20:50 03/18/22 20:47 95 03/18/22 20:37 95 03/18/22 20:30 84 L 03/18/22 20:27 98 03/18/22 20:21 85 L 03/18/22 20:17 99 03/18/22 20:07 98 03/18/22 19:57 99 03/18/22 19:47 98 03/18/22 19:45 03/18/22 19:37 97 03/18/22 19:30 03/18/22 19:27 96 03/18/22 19:17 98 03/18/22 19:16 03/18/22 19:05 03/18/22 19:05 03/18/22 19:07 97 03/18/22 19:00 03/18/22 18:57 96 03/18/22 18:47 97 03/18/22 18:46 03/18/22 18:30 03/18/22 18:37 98 03/18/22 18:31 03/18/22 18:27 99 03/18/22 18:17 97 03/18/22 18:17 03/18/22 18:16 91 03/18/22 18:17 03/18/22 18:10 90 03/18/22 18:07 99 Resident Activity Tracking Resident Involvement: Resident Care Provided Care Provided: OB Delivery
[2022-03-19 06:33] LABS: Hematocrit (blood only) 33.8 % (34.1-44.9); Hemoglobin 11.4 g/dl (12.0-16.0)
[2022-03-19] MEDS: PRENATAL VITAMIN 1 TAB PO SCH (07:22)
[2022-03-19] MEDS: ACETAMINOPHEN 325 MG TAB PO PRN (19:22)
[2022-03-19] MEDS ORDERED: oxyCODONE HCL IR 5 MG TAB (IMMEDIATE RELEASE) PO PRN (19:47)
--- NOTE | 2022-03-19 19:53 | Obstetrical Progress Note ---
Date of Service March 19, 2022 Assessment & Plan (1) Fever: (2) care and examination: (3) History of nephrolithiasis: Plan unclear etiology of her fever. ordered labs. ordered urine tests, pt on keflex currently due to kidney stones. no localizing source by history or exam. will monitor. aware may need blood cultures if temp cont to rise. offered and ordered oxycodone for her castro if she wants. bp normal. Admission and Anticipated Discharge Date Admission Date: March 18, 2022 Subjective pt notes feeling flush and has headache, ctsp due to elevated temp. has taken motrin and just took tylenol. denies any localizing sx. no cp or sob, no leg pain. no breast pain, no pain in abdomen or flank. of note, pt has known kidney stones but denies any back pain whatsoever. no cough,cold sx. Review of Systems Constitutional: as per Subjective / HPI Physical Exam Constitutional: WD/WN, vitals as above + ill appearing (cheeks look flush) Gastrointestinal (Abdomen): Inspection/Auscultation: abdomen normal to inspection Percussion/Palpation: abdomen soft; abdomen nontender ff 2 down from umbilicus completely nt Musculoskeletal: nt calves. Neurologic: grossly normal Psychiatric: A+Ox3, euthymic affect Genitourinary: no CVA tenderness Results & Data ([facility]) Vital Signs (Past 12 Hours) Vital Signs Temp Pulse Resp BP Pulse Ox O2 Del Method 03/19/22 18:55 100.8 F H 66 18 104/67 96 Room Air 03/19/22 15:43 98.2 F 66 16 112/73 99 Room Air 03/19/22 13:00 98.4 F 64 16 102/60 97 Room Air PG Care Time/CCT Total # of Minutes Spent Total Time Spent with Patient: Total time spent is greater than 50% in coordination of care (as documented) at patient's floor/unit and/or counseling patient: Coding Level of Care Code None Diagnoses Fever R50.9 care and examination Z39.2 History of nephrolithiasis Z87.442
[2022-03-19 19:58] LABS: Basophils # (auto) 0.03 K/uL (0-0.2); Basophils % (auto) 0.3 %; Eosinophils # (auto) 0.12 K/uL (0-0.50); Eosinophils % (auto) 1.2 %; Hematocrit (blood only) 32.6 % (34.1-44.9); Hemoglobin 10.9 g/dl (12.0-16.0); Immature Granulocytes # (auto) 0.06 K/uL (0.00-0.02); Immature Granulocytes % (auto) 0.6 %; Lymphocytes # (auto) 2.36 K/uL (1.2-3.4); Lymphocytes % (auto) 23.1 %; Mean Corpuscular Hemoglobin 29.1 pg (25.0-34.0); Mean Corpuscular Hgb Conc 33.4 g/dL (32.0-36.0); Mean Corpuscular Volume 87.2 fL (80.0-100.0); Mean Platelet Volume 10.7 fL (9.4-12.3); Monocytes # (auto) 0.79 K/uL (0.24-0.82); Monocytes % (auto) 7.7 %; Neutrophils # (auto) 6.85 K/uL (1.4-6.5); Neutrophils % (auto) 67.1 %; Platelet Count 187 K/uL (130-400); RDW Coefficient of Variation 14.3 % (11.5-14.5); RDW Standard Deviation 45.7 fL (36.4-46.3); Red Blood Count 3.74 M/uL (3.93-5.22); White Blood Count 10.21 K/ul (4.8-10.8)
[2022-03-19 20:32] LABS: Appearance Urine Clear (Clear); Bacteria Urine Automated Negative (Negative); Bilirubin Urine Negative (Negative); Blood Urine 3+ (Negative); Color Urine Yellow; Epithelial Cell Urine Auto 20-30 /lpf (0-5); Glucose Urine UA Negative (Negative); Ketones Urine Trace (Negative); Leukocyte Esterase Urine 1+ (Negative); Nitrite Urine Negative (Negative); Protein Urine Negative (Negative); RBC Urine Automated >30 /hpf (0-4); Specific Gravity Urine 1.021 (1.000-1.030); Urobilinogen Urine Negative (Negative)
[2022-03-20] MEDS: IBUPROFEN 600 MG TAB PO PRN ×3 (03:47→15:41)
[2022-03-20] MEDS: cephALEXin 500 MG CAP PO SCH (05:03)
--- NOTE | 2022-03-20 07:08 | Obstetrical Progress Note ---
Date of Service March 20, 2022 Assessment & Plan (1) care and examination: routine care, likely ok to go home later today but rec staying for 24hr af. f/u 6 wks. (2) Fever: no recurrence of fever. labs reviewed. urine cx pending. will likely dc keflex based on results of last studies, will dw oncoming md/do Subjective Ambulation: ambulating normally Voiding: no voiding problems Diet Tolerance:: regular diet Lochia:: Small Feeding Type:: breast feeding milk just coming in. feels well this am. no further issues with fever. discussed likely need to stop keflex given outcome of other tests and will see if new urine cx shows infection. also reviewed that wbc is normal Constitutional: + as per Subjective / HPI Physical Exam Constitutional WD/WN, vitals as above Respiratory normal respiratory effort, lungs clear to auscultation Cardiovascular Rate/Rhythm: regular rate and regular rhythm Gastrointestinal (Abdomen) Inspection/Auscultation: abdomen normal to inspection Percussion/Palpation: abdomen soft Fundus firm 2cm down, non tender Musculoskeletal nt calves no edema Neurologic grossly normal Psychiatric A+Ox3, euthymic affect Results & Data ([facility]) Vital Signs (Past 12 Hours) Vital Signs Temp Pulse Resp BP Pulse Ox O2 Del Method 03/20/22 03:04 99.0 F 59 L 18 105/67 96 Room Air 03/19/22 20:05 98.8 F 62 20 114/73 95 Room Air
[2022-03-20] MEDS: PRENATAL VITAMIN 1 TAB PO SCH (07:19)
[2022-03-20] MEDS: DOCUSATE SODIUM 100 MG CAP PO SCH (07:19)
[2022-03-20] MEDS: ACETAMINOPHEN 325 MG TAB PO PRN ×2 (07:19→13:24)
--- NOTE | 2022-03-20 08:00 | Communication Note ---
Date of Service: March 20, 2022 spoke with ob team this am. will plan to dc keflex. followup on urine cx pending. if remains af ok to go home after 24hr af. pt already aware of such.
[2022-03-20] MEDS ORDERED: bisacodyL 10 MG SUPP PR PRN (23:28)
== END 2022-03-20 18:34 | disposition home or self-care (01) | DRG 807 ==
LOC: 4S1 07:37 → 4E2 23:30

== ENCOUNTER 2022-07-30 23:01 | Observation (INO) ==
[2022-07-30] MEDS ORDERED: SODIUM CHLORIDE 0.9% 1000ML 1,000 ML IV STA (23:21)
[2022-07-30] MEDS ORDERED: MoRPHine SULFATE 4 MG/ML 1 ML CARP\\VIAL IV STA (23:21)
[2022-07-30] MEDS ORDERED: ONDANSETRON INJ 2 MG/ML 2 ML VIAL IV STA (23:21)
--- NOTE | 2022-07-30 23:36 | Emergency Department Note ---
Impression & Plan Choledocholithiasis, Right upper quadrant abdominal pain, Nausea and vomiting ED Provider Note CHIEF COMPLAINT: Right upper quadrant abdominal pain, nausea/vomiting/diarrhea HISTORY OF PRESENTING ILLNESS: This is a 26-year-old female who presents to the emergency department by private vehicle with complaint of right upper and epigastric abdominal pain that has been ongoing for about 24 hours. The pain radiates into her right upper back, is sharp, and she rates the pain 9/10. She has tried taking ibuprofen, Tylenol, and simethicone for her symptoms without any relief. She has had associated nausea with vomiting and some diarrhea as well and has not been able to keep much of anything down today. She notes that she has been having some upper abdominal pain ongoing for a few months and has been evaluated by her PCP, she had an ultrasound which showed gallstones. She denies any fevers or chills. She denies chest pain, shortness of breath, palpitations, dizziness or syncope. She denies any bloody or black stools. She denies urinary symptoms. REVIEW OF SYSTEMS: A complete 10 point review of systems was reviewed with the patient with pertinent positives and negatives as per history of present illness. All else were negative. PAST MEDICAL HISTORY: Anxiety, asthma, migraines, depression, history of gallstones SOCIAL HISTORY: Lives at home with family, denies tobacco use ALLERGIES: Reviewed in chart and with the patient PHYSICAL EXAM: CONSTITUTIONAL: Pleasant and cooperative. Nontoxic-appearing and in no acute distress. Well appearing and well nourished. HEENT: Normocephalic, atraumatic. NECK: Supple, full active range of motion without discomfort. RESPIRATORY: Clear to auscultation bilaterally with no wheezing, crackles, rhonchi or stridor. Equal expansion bilaterally. CARDIOVASCULAR: Regular rate and rhythm with no murmurs, rubs or gallops. Normal peripheral perfusion. No edema. GASTROINTESTINAL: Tender to palpation in the epigastric and right upper quadrant abdomen, no rebound tenderness or guarding. Abdomen is otherwise nontender, sof t and nondistended. No palpable masses or HSM. Bowel sounds present in all quadrants. No CVA tenderness bilaterally. MUSCULOSKELETAL: Full range of motion of all joints without discomfort. INTEGUMENTARY: No rash or other significant dermatologic conditions noted. NEUROLOGIC: Alert and oriented X 4 with normal affect. Normal speech. Normal gait observed. ED COURSE AND MEDICAL DECISION MAKING: CC: Patient presenting with complaint of upper abdominal pain DIFFERENTIAL DIAGNOSIS: Includes, but not limited to gastroenteritis, gastritis, peptic ulcer disease, GERD, cholecystitis, cholelithiasis, choledocholithiasis, infectious colitis, ureteral stone, UTI, pyelonephritis, among others. INTERPRETATION OF LABS: No leukocytosis, no anemia, normal platelets, no significant electrolyte abnormalities, normal renal function, normal liver enzymes and lipase. Serum negative. UA appears contaminated, a urine culture is pending. MEDICATION RECONCILIATION: I attest that I have personally reviewed the patient's current medication list. INITIAL VITAL SIGNS REVIEW: I reviewed the patient's initial vital signs and interpret them as follows: T: Afebrile; BP: Normotensive; HR: Within normal limits; RR: Within normal limits; Pulse Ox: Within normal limits on room air. MDM SUMMARY: Patient was evaluated at bedside, history and physical exam performed. Patient is alert and oriented, in no acute distress, resting calmly in the stretcher. She is afebrile and nontoxic-appearing, does appear to be mildly dehydrated clinically. Tenderness to palpation of the epigastric and right upper quadrant abdomen which reproduces complaint. No acute abdomen. Orders were placed at bedside for labs, UA, IV fluid bolus for hydration, IV morphine for pain, IV Zofran for nausea, right upper quadrant ultrasound. Patient discussed with Dr. Gonzalez, who agrees with my assessment, plan, and disposition. Labs and imaging reviewed as above, US notable for mildly enlarged common bile duct and choledocholithiasis. Labs are fairly unremarkable with no leukocytosis, and normal liver enzymes and lipase. She is not . I spoke on the phone with Dr. Galan, gastroenterology, who did recommend that the patient be admitted and kept n.p.o. for probable ERCP procedure later today. I spoke with Dr. Escamilla, the [facility] Hospitalist, who agreed to evaluate the patient for admission. Patient reassessed multiple times throughout ED stay, she has remained hemodynamically stable and afebrile and has had good relief of her pain with morphine. The patient was updated on all results and plan for admission and plan for ERCP, she verbalized understanding and was agreeable to this plan. The patient was stable at the time of admission. The chart was completed utilizing [employer] voice recognition software. Grammatical errors, random word insertions, pronoun errors, and incomplete sentences are an occasional consequence of this system due to software limitations, ambient noise, and hardware issues. Any formal questions or concerns about the content, text, or information contained within the body of this dictation should be directly addressed to the nurse practitioner for clarification. Past Med/Surg History Medical History Anxiety AVNRT (AV nimesh re-entry tachycardia) Migraine headache Mitral valve prolapse Pericarditis SVT (supraventricular tachycardia) Surgical History H/O cardiac radiofrequency ablation No pertinent past surgical history Status post lateral meniscus repair Family History Grandmother (Paternal) Breast cancer Ovarian cancer Diabetes Aunt Breast cancer Mother Colorectal cancer Von Willebrand disease Father Prostate cancer Grandfather (Paternal) Diabetes Heart disease Grandfather (Maternal) Heart disease Denies family history of Myocardial infarction Lung cancer Stroke Social History Smoking Status: Never smoker Second Hand Exposure: No; Hx Alcohol Use: No Hx Substance Use: No Preferred Language: Korean Visual Impairment: No Limitations Hearing Ability: Normal V Belt Finisher Required: No Beliefs That Will Affect Care: None marital status: marital status details: Daniel(25) [phone] Current Living Situation: Spouse Current Living Situation Comment: lives with and cat current occupational status: employed current occupation: [employer] Feels Safe at Home: Yes Childhood Exposure to Second-Hand Smoke: No Dental Care, Regularly: Yes Seatbelt Use: always Sunscreen Use: Yes Assistive Devices: Glasses Allergies Allergies Allergy/AdvReac Type Severity Reaction Status Date / Time latex Allergy Intermediate RASH Verified 07/09/22 10:06 Home Meds Home Medications Medication Instructions Recorded Confirmed Lactobacillus acidophilus 10 10,000 mmu cells PO DAILY 03/18/22 07/30/22 billion cell capsule (Probiotic) Previous Rx's Medication Instructions Recorded lorazepam 0.5 mg tablet 0.5 mg PO DAILY PRN uncontrolled 07/09/22 anxiety / panic #30 tabs sertraline 50 mg tablet 50 mg PO DAILY #90 tabs 07/09/22 Results & Data (ED) Vital Signs Vital Signs - 24 hr 07/30/22 23:03 07/31/22 00:17 07/31/22 00:38 Temperature 36.3 C L Temperature Source Temporal Artery Scan Pulse Rate 76 64 Pulse Rate [Apical] 61 Respiratory Rate 18 16 Respiratory Effort / Characteristics Non-Labored Spontaneous Respiratory Depth Normal Respiratory Pattern Regular Blood Pressure 116/80 Blood Pressure [Right Arm] 118/67 Blood Pressure Mean 92 Blood Pressure Mean [Right Arm] 84 Blood Pressure Position Sitting Pulse Oximetry 98 98 Oxygen Delivery Method Room Air Room Air Sepsis Recent Fever Within 48 Hours No Sepsis New/Unexplained Change in Mental Status N/A Sepsis Action Taken by Nursing No Action Required Laboratory Data 07/30/22 23:28 07/30/22 23:28 Lab Results 07/30/22 07/30/22 07/30/22 Range/Units 23:28 23:28 23:28 WBC 8.59 (4.8-10.8) K/ul RBC 4.57 (4.20-5.40) M/uL Hgb 13.0 (12.0-16.0) g/dl Hct 38.9 (37.0-47.0) % MCV 85.1 (80.0-100.0) fL MCH 28.4 (25.0-34.0) pg MCHC 33.4 (32.0-36.0) g/dL RDW Std Deviation 39.4 (36.4-46.3) fL RDW Coeff of Jana 12.8 (11.5-14.5) % Plt Count 226 (130-400) K/uL MPV 10.4 (9.4-12.4) fL Immature Gran % (Auto) 0.2 % Neut % (Auto) 58.4 % Lymph % (Auto) 31.2 % [place] % (Auto) 7.8 % Eos % (Auto) 1.9 % Baso % (Auto) 0.5 % Neut # (Auto) 5.02 (1.40-6.50) K/uL Lymph # (Auto) 2.68 (1.2-3.4) K/uL [place] # (Auto) 0.67 H (0.11-0.59) K/uL Eos # (Auto) 0.16 (0-0.50) K/uL Baso # (Auto) 0.04 (0-0.2) K/uL Immature Gran # (Auto) 0.02 (0.01-0.20) K/uL PT Cancelled INR Cancelled APTT Cancelled PTT Ratio Cancelled Sodium 137 (136-145) mmol/L Potassium 3.8 (3.5-5.1) mmol/L Chloride 105 (98-107) mmol/L Carbon Dioxide 24 (21-32) mmol/L Anion Gap 8 (3-11) BUN 21 (6-23) mg/dl Creatinine 0.76 (0.6-1.2) mg/dl Est Cr Clr Drug Dosing 128.6 ml/min Est GFR ( Amer) 126.4 ml/min Est GFR (Non-Af Amer) 109.0 ml/min BUN/Creatinine Ratio 27.6 H (10-20) Glucose 91 (70-99(Fasting)) mg/dl Calcium 9.4 (8.6-10.3) mg/dl Total Bilirubin 0.6 (0.2-1.0) mg/dl AST 28 (13-39) U/L ALT 42 (7-52) U/L Alkaline Phosphatase 55 (34-104) U/L Total Protein 7.6 (6.0-8.3) gm/dl Albumin 4.4 (3.4-5.0) gm/dl Globulin 3.2 (2.5-4.0) gm/dl Albumin/Globulin Ratio 1.4 (0.9-2) Lipase 34 (11-82) U/L HCG, Qual (Negative) Urine Color Urine Appearance (Clear) Urine pH (4.5-7.5) Ur Specific [place] (1.000-1.030) Urine Protein (Negative) Urine Glucose (UA) (Negative) Urine Ketones (Negative) Urine Blood (Negative) Urine Nitrite (Negative) Urine Bilirubin (Negative) Urine Urobilinogen (Negative) Ur Leukocyte Esterase (Negative) Urine WBC (Auto) (0-5) /hpf Urine RBC (Auto) (0-4) /hpf U Hyaline Cast (Auto) (0-5) /lpf U Epithel Cells (Auto) (0-5) /lpf Urine Bacteria (Auto) (Negative) SARS-CoV-2, RNA, NAAT (NEGATIVE) 07/30/22 07/31/22 07/31/22 Range/Units 23:28 00:21 00:37 WBC (4.8-10.8) K/ul RBC (4.20-5.40) M/uL Hgb (12.0-16.0) g/dl Hct (37.0-47.0) % MCV (80.0-100.0) fL MCH (25.0-34.0) pg MCHC (32.0-36.0) g/dL RDW Std Deviation (36.4-46.3) fL RDW Coeff of Jana (11.5-14.5) % Plt Count (130-400) K/uL MPV (9.4-12.4) fL Immature Gran % (Auto) % Neut % (Auto) % Lymph % (Auto) % [place] % (Auto) % Eos % (Auto) % Baso % (Auto) % Neut # (Auto) (1.40-6.50) K/uL Lymph # (Auto) (1.2-3.4) K/uL [place] # (Auto) (0.11-0.59) K/uL Eos # (Auto) (0-0.50) K/uL Baso # (Auto) (0-0.2) K/uL Immature Gran # (Auto) (0.01-0.20) K/uL PT 10.7 INR 1.0 APTT 28.8 PTT Ratio 1.0 Sodium (136-145) mmol/L Potassium (3.5-5.1) mmol/L Chloride (98-107) mmol/L Carbon Dioxide (21-32) mmol/L Anion Gap (3-11) BUN (6-23) mg/dl Creatinine (0.6-1.2) mg/dl Est Cr Clr Drug Dosing ml/min Est GFR ( Amer) ml/min Est GFR (Non-Af Amer) ml/min BUN/Creatinine Ratio (10-20) Glucose (70-99(Fasting)) mg/dl Calcium (8.6-10.3) mg/dl Total Bilirubin (0.2-1.0) mg/dl AST (13-39) U/L ALT (7-52) U/L Alkaline Phosphatase (34-104) U/L Total Protein (6.0-8.3) gm/dl Albumin (3.4-5.0) gm/dl Globulin (2.5-4.0) gm/dl Albumin/Globulin Ratio (0.9-2) Lipase (11-82) U/L HCG, Qual Negative (Negative) Urine Color Yellow Urine Appearance Cloudy A (Clear) Urine pH 6.0 (4.5-7.5) Ur Specific [place] 1.040 H (1.000-1.030) Urine Protein Trace H (Negative) Urine Glucose (UA) Negative (Negative) Urine Ketones Trace H (Negative) Urine Blood Negative (Negative) Urine Nitrite Negative (Negative) Urine Bilirubin Negative (Negative) Urine Urobilinogen Negative (Negative) Ur Leukocyte Esterase 1+ H (Negative) Urine WBC (Auto) 10-30 H (0-5) /hpf Urine RBC (Auto) 5-10 H (0-4) /hpf U Hyaline Cast (Auto) 5-10 H (0-5) /lpf U Epithel Cells (Auto) >30 H (0-5) /lpf Urine Bacteria (Auto) 1+ H (Negative) SARS-CoV-2, RNA, NAAT (NEGATIVE) 07/31/22 Range/Units 00:50 WBC (4.8-10.8) K/ul RBC (4.20-5.40) M/uL Hgb (12.0-16.0) g/dl Hct (37.0-47.0) % MCV (80.0-100.0) fL MCH (25.0-34.0) pg MCHC (32.0-36.0) g/dL RDW Std Deviation (36.4-46.3) fL RDW Coeff of Jana (11.5-14.5) % Plt Count (130-400) K/uL MPV (9.4-12.4) fL Immature Gran % (Auto) % Neut % (Auto) % Lymph % (Auto) % [place] % (Auto) % Eos % (Auto) % Baso % (Auto) % Neut # (Auto) (1.40-6.50) K/uL Lymph # (Auto) (1.2-3.4) K/uL [place] # (Auto) (0.11-0.59) K/uL Eos # (Auto) (0-0.50) K/uL Baso # (Auto) (0-0.2) K/uL Immature Gran # (Auto) (0.01-0.20) K/uL PT INR APTT PTT Ratio Sodium (136-145) mmol/L Potassium (3.5-5.1) mmol/L Chloride (98-107) mmol/L Carbon Dioxide (21-32) mmol/L Anion Gap (3-11) BUN (6-23) mg/dl Creatinine (0.6-1.2) mg/dl Est Cr Clr Drug Dosing ml/min Est GFR ( Amer) ml/min Est GFR (Non-Af Amer) ml/min BUN/Creatinine Ratio (10-20) Glucose (70-99(Fasting)) mg/dl Calcium (8.6-10.3) mg/dl Total Bilirubin (0.2-1.0) mg/dl AST (13-39) U/L ALT (7-52) U/L Alkaline Phosphatase (34-104) U/L Total Protein (6.0-8.3) gm/dl Albumin (3.4-5.0) gm/dl Globulin (2.5-4.0) gm/dl Albumin/Globulin Ratio (0.9-2) Lipase (11-82) U/L HCG, Qual (Negative) Urine Color Urine Appearance (Clear) Urine pH (4.5-7.5) Ur Specific [place] (1.000-1.030) Urine Protein (Negative) Urine Glucose (UA) (Negative) Urine Ketones (Negative) Urine Blood (Negative) Urine Nitrite (Negative) Urine Bilirubin (Negative) Urine Urobilinogen (Negative) Ur Leukocyte Esterase (Negative) Urine WBC (Auto) (0-5) /hpf Urine RBC (Auto) (0-4) /hpf U Hyaline Cast (Auto) (0-5) /lpf U Epithel Cells (Auto) (0-5) /lpf Urine Bacteria (Auto) (Negative) SARS-CoV-2, RNA, NAAT NEGATIVE (NEGATIVE) Administered Medications Discontinued Medications Sodium Chloride (Nss 1000ml) 1,000 mls @ 999 mls/hr IV .[id number] STA Stop: 07/31/22 00:21 Last Infusion: 03/24/23 01:14 Dose: 0 mls/hr Documented By: Admin: 07/31/22 00:09 Dose: 999 mls/hr Documented By: ANTON Morphine Sulfate (Morphine Sulfate 4 Mg/Ml 1 Ml Carp\Vial) 4 mg IV NOW STA Stop: 07/30/22 23:22 Last Admin: 07/31/22 00:08 Dose: 4 mg Documented By: ANTON Morphine Sulfate (Morphine Sulfate 4 Mg/Ml 1 Ml Carp\Vial) 4 mg IV NOW STA Stop: 07/31/22 01:15 Last Admin: 07/31/22 01:17 Dose: 4 mg Documented By: ANTON Ondansetron HCl (Ondansetron Inj 2 Mg/Ml 2 Ml Vial) 4 mg IV NOW STA Stop: 07/30/22 23:22 Last Admin: 07/31/22 00:09 Dose: 4 mg Documented By: ANTON Imaging Data Radiologist's Impression: Gallbladder Ultrasound 07/30/22 23:21 Exam(s): US GALLBLADDER EXAM: US Abdomen Limited, Gallbladder CLINICAL HISTORY: Reason for exam: RUQ pain, h/o gallstones. TECHNIQUE: Real-time ultrasound of the right upper quadrant with image documentation. COMPARISON: No relevant prior studies available. FINDINGS: Gallbladder: Cholelithiasis. No gallbladder wall thickening. No ultrasound evidence of acute cholecystitis. Common bile duct: Small stone in the common bile duct. Mildly prominent common bile duct measures 6 mm. Pancreas: Unremarkable as visualized. IMPRESSION: Positive for choledocholithiasis, as described. Electronically signed by: Khanh Arellano MD 07/31/22 00:15 AM Discharge Plan Visit Data Chief Complaint: Abdominal Pain Stated Complaint: ABDOMINAL PAIN ED Provider: Marie Gonzalez ED Midlevel Provider: Robyn Ha Discharge Problem: Choledocholithiasis, Right upper quadrant abdominal pain, Nausea and vomiting Patient Disposition: Admitted As Inpatient Condition: Good Forms Stand Alone Forms: [employer] Prescriptions Prescriptions: No Action sertraline 50 mg tablet 50 mg PO DAILY Qty: 90 1RF lorazepam 0.5 mg tablet 0.5 mg PO DAILY PRN (Reason: uncontrolled anxiety / panic) Qty: 30 0RF Probiotic 10 billion cell Capsule 10,000 mmu cells PO DAILY Referrals Referrals: Katerine Kelsey MD [Primary Care Provider] -
[2022-07-30 23:52] LABS: Basophils # (auto) 0.04 K/uL (0-0.2); Basophils % (auto) 0.5 %; Eosinophils # (auto) 0.16 K/uL (0-0.50); Eosinophils % (auto) 1.9 %; Hematocrit (blood only) 38.9 % (37.0-47.0); Immature Granulocytes # (auto) 0.02 K/uL (0.01-0.20); Immature Granulocytes % (auto) 0.2 %; Lymphocytes # (auto) 2.68 K/uL (1.2-3.4); Lymphocytes % (auto) 31.2 %; Mean Corpuscular Hemoglobin 28.4 pg (25.0-34.0); Mean Corpuscular Hgb Conc 33.4 g/dL (32.0-36.0); Mean Corpuscular Volume 85.1 fL (80.0-100.0); Mean Platelet Volume 10.4 fL (9.4-12.4); Monocytes # (auto) 0.67 K/uL (0.11-0.59); Monocytes % (auto) 7.8 %; Neutrophils # (auto) 5.02 K/uL (1.40-6.50); Neutrophils % (auto) 58.4 %; Platelet Count 226 K/uL (130-400); RDW Coefficient of Variation 12.8 % (11.5-14.5); RDW Standard Deviation 39.4 fL (36.4-46.3); Red Blood Count 4.57 M/uL (4.20-5.40); White Blood Count 8.59 K/ul (4.8-10.8)
[2022-07-31 00:04] LABS: Pregnancy Test, Serum Negative (Negative)
--- NOTE | 2022-07-31 00:16 | Ultrasound Report ---
Exam(s): US GALLBLADDER EXAM: US Abdomen Limited, Gallbladder CLINICAL HISTORY: Reason for exam: RUQ pain, h/o gallstones. TECHNIQUE: Real-time ultrasound of the right upper quadrant with image documentation. COMPARISON: No relevant prior studies available. FINDINGS: Gallbladder: Cholelithiasis. No gallbladder wall thickening. No ultrasound evidence of acute cholecystitis. Common bile duct: Small stone in the common bile duct. Mildly prominent common bile duct measures 6 mm. Pancreas: Unremarkable as visualized. IMPRESSION: Positive for choledocholithiasis, as described. Electronically signed by: Khanh Arellano MD 07/31/22 00:15 AM
[2022-07-31 00:24] LABS: Albumin Globulin Ratio 1.4 (0.9-2); Albumin Level 4.4 gm/dl (3.4-5.0); BUN Creatinine Ratio 27.6 (10-20); Bilirubin,Total 0.6 mg/dl (0.2-1.0); Calcium 9.4 mg/dl (8.6-10.3); Creatinine Clr Calc Pharmacy 128.6 ml/min; Est GFR (African American) 126.4 ml/min; Globulin 3.2 gm/dl (2.5-4.0); Potassium 3.8 mmol/L (3.5-5.1); Total Protein 7.6 gm/dl (6.0-8.3)
[2022-07-31 00:54] LABS: Appearance Urine Cloudy (Clear); Bacteria Urine Automated 1+ (Negative); Bilirubin Urine Negative (Negative); Blood Urine Negative (Negative); Color Urine Yellow; Epithelial Cell Urine Auto >30 /lpf (0-5); Glucose Urine UA Negative (Negative); Ketones Urine Trace (Negative); Leukocyte Esterase Urine 1+ (Negative); Nitrite Urine Negative (Negative); Protein Urine Trace (Negative); Urobilinogen Urine Negative (Negative)
[2022-07-31 01:14] LABS: Partial Thromboplastin Time 28.8 Seconds (21.0-31.0); Prothrombin Time 10.7 Seconds (9.0-12.0)
[2022-07-31] MEDS ORDERED: MoRPHine SULFATE 4 MG/ML 1 ML CARP\\VIAL IV STA (01:14)
--- NOTE | 2022-07-31 01:22 | History & Physical Report ---
Date of Service July 31, 2022 Assessment & Plan (1) Choledocholithiasis: Plan: 26-year-old female with history of gallstones presenting with severe right upper quadrant pain that began after dinner this evening. Patient is afebrile, hemodynamically stable and nontoxic in appearance. Labs are largely unremarkable notable for normal white blood cell count, normal liver studies and normal lipase. Ultrasound with choledocholithiasis and mildly enlarged common bile duct at 6 mm. No acute cholecystitis. Pain is well controlled at present with use of IV morphine. Observation to medical Keep n.p.o. Morphine as needed for pain Zofran as needed for nausea GI consultation for possible ERCP in the morningassistance appreciated General surgery consultation for possible cholecystectomyassistance appreciated Repeat BMP, CBC and hepatic panel in the morning (2) Anxiety: Plan: Chronic. Well-controlled. Continue sertraline 50 mg p.o. daily FENLR at 125 mL/h x 2 L, electrolytes within normal limits, n.p.o. for now Prophylaxislow risk for DVT Codefull per discussion with patient Dispositionobservation to medical History of Present Illness Chief Complaint: Right upper quadrant abdominal pain Primary Care Provider: Katerine Kelsey MD Patrick Callejas is a pleasant 26-year-old female presenting with right upper quadrant pain. She reports that last 4 months (since she had her daughter) she has been experiencing intermittent right upper quadrant abdominal pain. She has been seen in the outpatient setting for this 2 weeks ago and had a right upper quadrant ultrasound performed which confirmed the presence of gallstones without acute cholecystitis or intra or extrahepatic biliary ductal dilatation. Patient presents this evening with acute severe right upper quadrant pain that began after dinner. Her pain radiates through to her back and is associated with abdominal bloating, nausea, vomiting and diarrhea. She denies fever/chills/chest pain/cough/shortness of breath. No additional complaints at this time. In the ER, patient is afebrile, hemodynamically stable. Still in significant pain which has improved with administration of IV morphine 4 mg. Labs as below largely unremarkablespecifically normal WBC count, normal liver studies and normal lipase. Right upper quadrant ultrasound performed with choledocholithiasis ER course: Morphine Zofran Normal saline Allergies Allergy/AdvReac Type Severity Reaction Status Date / Time latex Allergy Intermediate RASH Verified 07/09/22 10:06 Home Medications Medication Instructions Recorded Confirmed Type Lactobacillus acidophilus 10 10,000 mmu cells PO DAILY 03/18/22 07/30/22 History billion cell capsule (Probiotic) lorazepam 0.5 mg tablet 0.5 mg PO DAILY PRN uncontrolled 07/09/22 07/30/22 Rx anxiety / panic #30 tabs sertraline 50 mg tablet 50 mg PO DAILY #90 tabs 07/09/22 07/30/22 Rx Past Med/Surg History Medical History (Updated 07/31/22 @ 01:46 by Coni Escamilla DO) Anxiety AVNRT (AV nimesh re-entry tachycardia) Migraine headache Mitral valve prolapse stable-unchanged since childhood. Pericarditis Surgical History H/O cardiac radiofrequency ablation No pertinent past surgical history Status post lateral meniscus repair Family History Grandmother (Paternal) Breast cancer Ovarian cancer Diabetes Aunt Breast cancer Mother Colorectal cancer Von Willebrand disease Father Prostate cancer Grandfather (Paternal) Diabetes Heart disease Grandfather (Maternal) Heart disease Denies family history of Myocardial infarction Lung cancer Stroke Social History Smoking Status: Never smoker Second Hand Exposure: No; Hx Alcohol Use: No Hx Substance Use: No Preferred Language: Upper Sorbian Visual Impairment: No Limitations Hearing Ability: Normal Cyber Incident Handler Required: No Beliefs That Will Affect Care: None marital status: marital status details: Daniel(25) [phone] Current Living Situation: Spouse Current Living Situation Comment: lives with and cat current occupational status: employed current occupation: [employer] Feels Safe at Home: Yes Childhood Exposure to Second-Hand Smoke: No Dental Care, Regularly: Yes Seatbelt Use: always Sunscreen Use: Yes Assistive Devices: Glasses Review of Systems Review of Systems: All systems reviewed & are unremarkable except as noted in HPI & below Physical Exam Physical Exam: General: patient resting comfortably, NAD, non-toxic in appearance, AA&O x 4 Skin: warm, dry, intact, no rashes or lesions HEENT: NC/AT, PERRL, EOMI, anicteric sclera, conjunctiva without injection, external ear normal to inspection and nontender, nares patent, moist mucus membranes, dentition intact, no oropharyngeal lesions, neck supple, trachea midline, no LAD, no thyromegaly, no JVD Heart: +S1/S2, regular, no m/r/g Lungs: equal air entry bilaterally, no rales/rhonchi/wheezes Abd: +BS, soft, right upper quadrant tenderness without rebound/guarding/peritonitis, no masses/organomegaly/ascites Ext: warm, 2+ pulses in UE/LE bilaterally, no clubbing/cyanosis or edema Neuro: nonfocal, patient AA&O x 4, speech intact, no facial droop, moving all extremities on command with equal strength 5/5 Results & Data Results & Data Vital Signs (Past 12 Hours) Vital Signs Temp Pulse Pulse Resp BP BP Pulse Ox 07/31/22 00:38 61 16 118/67 98 07/31/22 00:17 64 07/30/22 23:03 36.3 C L 76 18 116/80 98 O2 Del Method 07/31/22 00:38 Room Air 07/31/22 00:17 07/30/22 23:03 Room Air Laboratory Results Laboratory Results WBC 8.59 K/ul (4.8-10.8) 07/30/22: RBC 4.57 M/uL (4.20-5.40) 07/30/22 23: Hgb 13.0 g/dl (12.0-16.0) 07/30/22 23: Hct 38.9 % (37.0-47.0) 07/30/22: MCV 85.1 fL (80.0-100.0) 07/30/22 23: MCH 28.4 pg (25.0-34.0) 07/30/22: MCHC 33.4 g/dL (32.0-36.0) 07/30/22: RDW Std Deviation 39.4 fL (36.4-46.3) 07/30/22 RDW Coeff of Jana 12.8 % (11.5-14.5) 07/30/22 23 Plt Count 226 K/uL (130-400) 07/30/22 23: MPV 10.4 fL (9.4-12.4) 07/30/22 23: Immature Gran % (Auto) 0.2 % 07/30/22 23: Neut % (Auto) 58.4 % 07/30/22 23: Lymph % (Auto) 31.2 % 07/30/22 23: Thomas % (Auto) 7.8 % 07/30/22 23: Eos % (Auto) 1.9 % 07/30/22 23: Baso % (Auto) 0.5 % 07/30/22: Neut # (Auto) 5.02 K/uL (1.40-6.50) 07/30/22 23: Lymph # (Auto) 2.68 K/uL (1.2-3.4) 07/30/22: Thomas # (Auto) 0.67 K/uL (0.11-0.59) H 07/30/22 23: Eos # (Auto) 0.16 K/uL (0-0.50) 07/30/22: Baso # (Auto) 0.04 K/uL (0-0.2) 07/30/22 23: Immature Gran # (Auto) 0.02 K/uL (0.01-0.20) 07/30/22 23: PT 10.7 Seconds (9.0-12.0) 07/31/22 00:37 INR 1.0 (0.9-1.1) 07/31/22 00:37 APTT 28.8 Seconds (21.0-31.0) 07/31/22 00:37 PTT Ratio 1.0 07/31/22 00:37 Sodium 137 mmol/L (136-145) 07/30/22: Potassium 3.8 mmol/L (3.5-5.1) 07/30/22: Chloride 105 mmol/L (98-107) 07/30/22: Carbon Dioxide 24 mmol/L (21-32) 07/30/22: Anion Gap 8 (3-11) 07/30/22 23: BUN 21 mg/dl (6-23) 07/30/22: Creatinine 0.76 mg/dl (0.6-1.2) 07/30/22: Est Cr Clr Drug Dosing 128.6 ml/min 07/30/22 23:28 Est GFR ( Amer) 126.4 ml/min 07/30/22 23: Est GFR (Non-Af Amer) 109.0 ml/min 07/30/22 23: BUN/Creatinine Ratio 27.6 (10-20) H 07/30/22 23: Glucose 91 mg/dl (70-99(Fasting)) 07/30/22: Calcium 9.4 mg/dl (8.6-10.3) 07/30/22: Total Bilirubin 0.6 mg/dl (0.2-1.0) 07/30/22: AST 28 U/L (13-39) 07/30/22: ALT 42 U/L (7-52) 07/30/22: Alkaline Phosphatase 55 U/L (34-104) 07/30/22: Total Protein 7.6 gm/dl (6.0-8.3) 07/30/22: Albumin 4.4 gm/dl (3.4-5.0) 07/30/22: Globulin 3.2 gm/dl (2.5-4.0) 07/30/22: Albumin/Globulin Ratio 1.4 (0.9-2) 07/30/22: Lipase 34 U/L (11-82) 07/30/22 23: HCG, Qual Negative (Negative) 07/30/22 23: Urine Color Yellow 07/31/22 00:21 Urine Appearance Cloudy (Clear) A 07/31/22 00:21 Urine pH 6.0 (4.5-7.5) 07/31/22 00:21 Ur Specific [place] 1.040 (1.000-1.030) H 07/31/22 00:21 Urine Protein Trace (Negative) H 07/31/22 00:21 Urine Glucose (UA) Negative (Negative) 07/31/22 00:21 Urine Ketones Trace (Negative) H 07/31/22 00:21 Urine Blood Negative (Negative) 07/31/22 00:21 Urine Nitrite Negative (Negative) 07/31/22 00: Urine Bilirubin Negative (Negative) 07/31/22 00:21 Urine Urobilinogen Negative (Negative) 07/31/22 00:21 Ur Leukocyte Esterase 1+ (Negative) H 07/31/22 00:21 Urine WBC (Auto) 10-30 /hpf (0-5) H 07/31/22 00:21 Urine RBC (Auto) 5-10 /hpf (0-4) H 07/31/22 00:21 U Hyaline Cast (Auto) 5-10 /lpf (0-5) H 07/31/22 00:21 U Epithel Cells (Auto) >30 /lpf (0-5) H 07/31/22 00:21 Urine Bacteria (Auto) 1+ (Negative) H 07/31/22 00:21 SARS-CoV-2, RNA, NAAT NEGATIVE (NEGATIVE) 07/31/22 00:50 Impressions Gallbladder Ultrasound 07/30/22 23:21 Exam(s): US GALLBLADDER EXAM: US Abdomen Limited, Gallbladder CLINICAL HISTORY: Reason for exam: RUQ pain, h/o gallstones. TECHNIQUE: Real-time ultrasound of the right upper quadrant with image documentation. COMPARISON: No relevant prior studies available. FINDINGS: Gallbladder: Cholelithiasis. No gallbladder wall thickening. No ultrasound evidence of acute cholecystitis. Common bile duct: Small stone in the common bile duct. Mildly prominent common bile duct measures 6 mm. Pancreas: Unremarkable as visualized. IMPRESSION: Positive for choledocholithiasis, as described. Electronically signed by: Khanh Arellano MD 07/31/22 00:15 AM PG Care Time/CCT Total # of Minutes Spent Total Time Spent with Patient: Total time spent is greater than 50% in coordination of care (as documented) at patient's floor/unit and/or counseling patient: Coding Level of Care Code 89939 INT INP/OBS CARE 2/55MIN Diagnoses Choledocholithiasis K80.50 Anxiety F41.9
[2022-07-31] MEDS ORDERED: MoRPHine SULFATE 2 MG/ML CARP IV PRN (01:55)
[2022-07-31] MEDS: LACTATED RINGER'S 1,000 ML IV SCH ×2 (02:31→10:33)
[2022-07-31 07:59] LABS: Hemoglobin 12.9 g/dl (12.0-16.0); Mean Corpuscular Hemoglobin 28.1 pg (25.0-34.0); Mean Corpuscular Hgb Conc 33.1 g/dL (32.0-36.0); Mean Platelet Volume 10.7 fL (9.4-12.4); Platelet Count 213 K/uL (130-400); RDW Coefficient of Variation 12.9 % (11.5-14.5); RDW Standard Deviation 39.5 fL (36.4-46.3); Red Blood Count 4.59 M/uL (4.20-5.40); White Blood Count 5.92 K/ul (4.8-10.8)
[2022-07-31 08:25] LABS: Albumin Level 3.7 gm/dl (3.4-5.0); BUN Creatinine Ratio 24.6 (10-20); Bilirubin Direct 0.2 mg/dl (0-0.2); Bilirubin,Total 0.9 mg/dl (0.2-1.0); Calcium 8.3 mg/dl (8.6-10.3); Creatinine Clr Calc Pharmacy 160.2 ml/min; Potassium 3.9 mmol/L (3.5-5.1); Total Protein 6.3 gm/dl (6.0-8.3)
[2022-07-31] MEDS ORDERED: INDOMETHACIN 50 MG SUPP PR ONE ×2 (08:51→12:32)
--- NOTE | 2022-07-31 08:59 | Gastrointestinal Consultation ---
Date of Consultation July 31, 2022 Assessment & Plan (1) Choledocholithiasis: Pt is a 26 yo female who presented w RUQ abd pain, n/v x 2 days found to have transaminitis, and gallbladder us showed cholelithiasis w CBD dilation (6mm) and choledocholithiasis in CBD area. - Keep NPO - IV antibx - ERCP in OR by Dr. Segal today - Surgery consulted for cholecystectomy eval - Trend LFTs - Symptomatic management otherwise Supervising Physician Co-Signing Physician Notes I saw and evaluated the patient. We were consulted for evaluation of abdominal pain ongoing for the last 3 months since delivering the patient's first baby. S he underwent a right upper quadrant ultrasound which showed evidence of choledocholithiasis. ERCP has been requested as part of her evaluation prior to cholecystectomy. The patient notes that she has persistent right-sided pain and nausea. The symptoms have been progressing over the last 24 to 48 hours. Physical examination No obvious distress Right upper quadrant tender to palpation Impression: Patient with symptomatic choledocholithiasis, we will proceed with ERCP today for biliary decompression. We have discussed the risks and benefits of ERCP to include bleeding, infection, perforation, pain, pancreatitis, failed biliary cannulation and need for follow-up studies. We have also discussed the increased risk of post ERCP pancreatitis given the young age and gender of the patient. Plan 1) ERCP today History of Present Illness Reason for Consultation: Choledocholithiasis Requesting Physician: Dr. Esvin Rico Attending Physician: Dr. Dg Segal History of Present Illness Pt is a 26 yo female w PMHx of asthma, palpitations s/p ablation, who presented w c/o RUQ abd pain radiating to back associated w nausea & vomiting, started 2 days. Symptoms started 2 days ago after eating pasta. Denies jaundice, fever, chills. Had loose stools yesterday wo rectal bleeding but none today. On eval, noted to have no leukocytosis, LFTs w mild transaminitis, normal Tbili and alk phos. Gallbladder u/s showed cholelithiasis w 6mm CBD and small gallstone in CBD Pt denies hx of abd surgeries. Denies tobacco, ETOH, marijuana. She doesn't take any antiplatelets/anticoagulants Multiple family members on mom side w gallbladder disease, denies GI malignancies Allergies Allergy/AdvReac Type Severity Reaction Status Date / Time latex Allergy Intermediate RASH Verified 07/09/22 10:06 Home Medications Medication Instructions Recorded Confirmed Type Lactobacillus acidophilus 10 10,000 mmu cells PO DAILY 03/18/22 07/30/22 History billion cell capsule (Probiotic) lorazepam 0.5 mg tablet 0.5 mg PO DAILY PRN uncontrolled 07/09/22 07/30/22 Rx anxiety / panic #30 tabs sertraline 50 mg tablet 50 mg PO DAILY #90 tabs 07/09/22 07/30/22 Rx Patient History Medical History Anxiety AVNRT (AV nimesh re-entry tachycardia) Migraine headache Mitral valve prolapse stable-unchanged since childhood. Pericarditis Surgical History H/O cardiac radiofrequency ablation No pertinent past surgical history Status post lateral meniscus repair Family History Grandmother (Paternal) Breast cancer Ovarian cancer Diabetes Aunt Breast cancer Mother Colorectal cancer Von Willebrand disease Father Prostate cancer Grandfather (Paternal) Diabetes Heart disease Grandfather (Maternal) Heart disease Denies family history of Myocardial infarction Lung cancer Stroke Social History Smoking Status: Never smoker Second Hand Exposure: No; Do You Dip or Chew Tobacco: No; Hx Alcohol Use: No Hx Substance Use: No Preferred Language: Mongolian Communication Ability: Effective Visual Impairment: No Limitations Hearing Ability: Normal Tip Stretcher Required: No Beliefs That Will Affect Care: None marital status: marital status details: Daniel(25) [phone] Current Living Situation: Spouse Current Living Situation Comment: lives with and cat current occupational status: employed current occupation: [employer] Feels Safe at Home: Yes Safety Concerns: Feels Safe At This Time Childhood Exposure to Second-Hand Smoke: No Dental Care, Regularly: Yes Seatbelt Use: always Sunscreen Use: Yes Assistive Devices: None Review of Systems Review of Systems: All systems reviewed & are unremarkable except as noted in HPI & below Physical Exam Constitutional: WD/WN, vitals as above well groomed, cooperative and comfortable Eyes: PERRL, conjunctivae normal, anicteric sclerae ENMT: external ear and nose normal, oropharynx normal Respiratory: normal respiratory effort, lungs clear to auscultation Cardiovascular: RRR, no murmur, no edema Gastrointestinal (Abdomen): TTP RUQ, soft, hypoactive BS Skin: no rashes, warm and dry no jaundice Psychiatric: A+Ox3, euthymic affect Lymphatic: no lymphedema Results & Data Vital Signs (Past 12 Hours) Vital Signs Temp Pulse Pulse Resp BP BP Pulse Ox 07/31/22 07:42 36.6 C 57 L 18 99/62 L 96 07/31/22 02:00 36.6 C 62 16 130/79 99 07/31/22 00:38 61 16 118/67 98 07/31/22 00:17 64 07/30/22 23:03 36.3 C L 76 18 116/80 98 O2 Del Method 07/31/22 07:42 Room Air 07/31/22 02:00 Room Air 07/31/22 00:38 Room Air 07/31/22 00:17 07/30/22 23:03 Room Air Diagnostic Findings [facility], [id number] Ultrasound Report Patient: MARKOS HALL CAdrich Date: 07/30/22MR#: [id number]: [id number] [employer] DRAcct ID:[id number]: Date: 1995City Zip: [place], [place] [address]Zni: 26Location: EDSex: FRoom/Bed:Att Phy:Diagnosis: ABDOMINAL PAINPri Phy: Katerine Kelsey MDService Date: 07/30/22Fa Phy:Interpreting Phy: Khanh Arellano MDAdmit Phy: Ordering Phy: Robyn aH CRNP cc: ~ Exam(s): US GALLBLADDER EXAM: US Abdomen Limited, Gallbladder CLINICAL HISTORY: Reason for exam: RUQ pain, h/o gallstones. TECHNIQUE: Real-time ultrasound of the right upper quadrant with image documentation. COMPARISON: No relevant prior studies available. FINDINGS: Gallbladder: Cholelithiasis. No gallbladder wall thickening. No ultrasound evidence of acute cholecystitis. Common bile duct: Small stone in the common bile duct. Mildly prominent common bile duct measures 6 mm. Pancreas: Unremarkable as visualized. IMPRESSION: Positive for choledocholithiasis, as described.
[2022-07-31] MEDS: SERTRALINE HCL 50 MG TABLET PO SCH (09:01)
[2022-07-31] MEDS: AMPICILLIN/SULBACTAM SOD 3,000 MG in 0.9 % SODIUM CHLORIDE 100 ML IV SCH ×3 (09:01→20:15)
--- NOTE | 2022-07-31 10:01 | Surgery Consultation ---
Date of Consultation July 31, 2022 Assessment & Plan (1) Choledocholithiasis: (2) Right upper quadrant abdominal pain: (3) Gallstones: Plan 26 year-old female with 2 day history of abdominal pain, n, v and diarrhea found to have dilated cbd and choledocholithiasis on ultrasound. No evidence of acute cholecystitis. T. bili and wbc normal. afebrile. Plan: Dr. Moore discussed with patient that given that there are no signs of acute cholecystitis on imaging , we could get her seen as outpatient next week to set up elective cholecystectomy. EUS +/- ERCP today keep npo follow-up Dr. moore next week. Dr. Moore has seen and examined pt, agrees with above. Supervising Physician Co-Signing Physician Notes Seen and examined the patient personally and agree with the above assessment and plan. Currently she has no signs and symptoms of acute cholecystitis. She does have choledocholithiasis. GI will take care for EUS and possible stent placement. I discussed with her the possibility of immediate cholecystectomy versus short-term follow-up with outpatient management. She is elected for outpatient follow-up in the near future. History of Present Illness Reason for Consultation: Cholelithiasis, Choledocholithiasis Requesting Physician: Coni Escamilla DO Attending Physician: Esvin Rico MD History of Present Illness Patrick is a 26 year-old female who presented to emergency room with complaint of increasing abdominal pain in last 2 days after eating pasta. states since she had her daughter 4 months ago she has been having some issues with abdominal [place] n. States the last few days she had nausea, vomiting, and diarrhea. Denies of any fever or chills. Ultrasound showed dilated CBD at 6 mm with choledocholithiasis. No gallbladder wall thickening or fluid to suggest acute cholecystitis. T. bili normal. WBC normal. Afebrile. Mild elevation of LFTS. States she is feeling better today but is still having pain. Pain medication helps. No further vomiting. Scheduled for EUS possible ercp today. Allergies Allergy/AdvReac Type Severity Reaction Status Date / Time latex Allergy Intermediate RASH Verified 07/09/22 10:06 Home Medications Medication Instructions Recorded Confirmed Type Lactobacillus acidophilus 10 10,000 mmu cells PO DAILY 03/18/22 07/30/22 History billion cell capsule (Probiotic) lorazepam 0.5 mg tablet 0.5 mg PO DAILY PRN uncontrolled 07/09/22 07/30/22 Rx anxiety / panic #30 tabs sertraline 50 mg tablet 50 mg PO DAILY #90 tabs 07/09/22 07/30/22 Rx amoxicillin 875 mg-potassium 1 tab PO BID #20 tabs 08/01/22 Rx clavulanate 125 mg tablet ondansetron 4 mg disintegrating 4 mg PO Q6H PRN nausea and 08/01/22 Rx tablet vomiting #20 tabs oxycodone-acetaminophen 5 mg-325 1 tab PO Q6H PRN pain #10 tabs 08/02/22 Rx mg tablet (Percocet) Patient History Medical History Anxiety AVNRT (AV nimesh re-entry tachycardia) Migraine headache Mitral valve prolapse stable-unchanged since childhood. Pericarditis Surgical History H/O cardiac radiofrequency ablation No pertinent past surgical history Status post lateral meniscus repair Family History Grandmother (Paternal) Breast cancer Ovarian cancer Diabetes Aunt Breast cancer Mother Colorectal cancer Von Willebrand disease Father Prostate cancer Grandfather (Paternal) Diabetes Heart disease Grandfather (Maternal) Heart disease Denies family history of Myocardial infarction Lung cancer Stroke Social History Smoking Status: Never smoker Second Hand Exposure: No; Hx Alcohol Use: No Hx Substance Use: No Preferred Language: Italian Communication Ability: Effective Visual Impairment: No Limitations Hearing Ability: Normal Environmental Analyst Required: No Beliefs That Will Affect Care: None marital status: marital status details: Daniel(25) [phone] Current Living Situation: Spouse Current Living Situation Comment: lives with and cat current occupational status: employed current occupation: [employer] Feels Safe at Home: Yes Childhood Exposure to Second-Hand Smoke: No Dental Care, Regularly: Yes Seatbelt Use: always Sunscreen Use: Yes Assistive Devices: None Physical Exam Constitutional: WD/WN, vitals as above cooperative and comfortable; no acute distress, not ill appearing and not frail appearing Neck: normal visual inspection and trachea midline Respiratory: normal respiratory effort; no respiratory distress Gastrointestinal (Abdomen): Inspection/Auscultation: abdomen normal to inspection; abdomen not distended Percussion/Palpation: + abdomen tender (RUQ) and abdomen soft; no guarding and abdomen not rigid Skin: no rashes, warm and dry no jaundice Psychiatric: A+Ox3, euthymic affect Results & Data Vital Signs (Past 12 Hours) Vital Signs Temp Pulse Pulse Resp BP BP Pulse Ox 07/31/22 07:42 36.6 C 57 L 18 99/62 L 96 07/31/22 02:00 36.6 C 62 16 130/79 99 07/31/22 00:38 61 16 118/67 98 07/31/22 00:17 64 07/30/22 23:03 36.3 C L 76 18 116/80 98 O2 Del Method 07/31/22 07:42 Room Air 07/31/22 02:00 Room Air 07/31/22 00:38 Room Air 07/31/22 00:17 07/30/22 23:03 Room Air Laboratory Results 07/31/22 07/31/22 07/31/22 Range/Units 07:14 07:14 00:50 WBC 5.92 (4.8-10.8) K/ul RBC 4.59 (4.20-5.40) M/uL Hgb 12.9 (12.0-16.0) g/dl Hct 39.0 (37.0-47.0) % MCV 85.0 (80.0-100.0) fL MCH 28.1 (25.0-34.0) pg MCHC 33.1 (32.0-36.0) g/dL RDW Std Deviation 39.5 (36.4-46.3) fL RDW Coeff of Jana 12.9 (11.5-14.5) % Plt Count 213 (130-400) K/uL MPV 10.7 (9.4-12.4) fL Immature Gran % (Auto) % Neut % (Auto) % Lymph % (Auto) % [place] % (Auto) % Eos % (Auto) % Baso % (Auto) % Neut # (Auto) (1.40-6.50) K/uL Lymph # (Auto) (1.2-3.4) K/uL [place] # (Auto) (0.11-0.59) K/uL Eos # (Auto) (0-0.50) K/uL Baso # (Auto) (0-0.2) K/uL Immature Gran # (Auto) (0.01-0.20) K/uL PT INR APTT PTT Ratio Sodium 139 (136-145) mmol/L Potassium 3.9 (3.5-5.1) mmol/L Chloride 108 H (98-107) mmol/L Carbon Dioxide 26 (21-32) mmol/L Anion Gap 5 (3-11) BUN 15 (6-23) mg/dl Creatinine 0.61 (0.6-1.2) mg/dl Est Cr Clr Drug Dosing 160.2 ml/min Est GFR ( Amer) 146.0 ml/min Est GFR (Non-Af Amer) 126.0 ml/min BUN/Creatinine Ratio 24.6 H (10-20) Glucose 83 (70-99(Fasting)) mg/dl Calcium 8.3 L (8.6-10.3) mg/dl Total Bilirubin 0.9 (0.2-1.0) mg/dl Direct Bilirubin 0.2 (0-0.2) mg/dl AST 40 H (13-39) U/L ALT 58 H (7-52) U/L Alkaline Phosphatase 48 (34-104) U/L Total Protein 6.3 (6.0-8.3) gm/dl Albumin 3.7 (3.4-5.0) gm/dl Globulin (2.5-4.0) gm/dl Albumin/Globulin Ratio (0.9-2) Lipase (11-82) U/L HCG, Qual (Negative) Urine Color Urine Appearance (Clear) Urine pH (4.5-7.5) Ur Specific [place] (1.000-1.030) Urine Protein (Negative) Urine Glucose (UA) (Negative) Urine Ketones (Negative) Urine Blood (Negative) Urine Nitrite (Negative) Urine Bilirubin (Negative) Urine Urobilinogen (Negative) Ur Leukocyte Esterase (Negative) Urine WBC (Auto) (0-5) /hpf Urine RBC (Auto) (0-4) /hpf U Hyaline Cast (Auto) (0-5) /lpf U Epithel Cells (Auto) (0-5) /lpf Urine Bacteria (Auto) (Negative) SARS-CoV-2, RNA, NAAT NEGATIVE (NEGATIVE) 07/31/22 07/31/22 07/30/22 Range/Units 00:37 00:21 23:28 WBC (4.8-10.8) K/ul RBC (4.20-5.40) M/uL Hgb (12.0-16.0) g/dl Hct (37.0-47.0) % MCV (80.0-100.0) fL MCH (25.0-34.0) pg MCHC (32.0-36.0) g/dL RDW Std Deviation (36.4-46.3) fL RDW Coeff of Jana (11.5-14.5) % Plt Count (130-400) K/uL MPV (9.4-12.4) fL Immature Gran % (Auto) % Neut % (Auto) % Lymph % (Auto) % [place] % (Auto) % Eos % (Auto) % Baso % (Auto) % Neut # (Auto) (1.40-6.50) K/uL Lymph # (Auto) (1.2-3.4) K/uL [place] # (Auto) (0.11-0.59) K/uL Eos # (Auto) (0-0.50) K/uL Baso # (Auto) (0-0.2) K/uL Immature Gran # (Auto) (0.01-0.20) K/uL PT 10.7 INR 1.0 APTT 28.8 PTT Ratio 1.0 Sodium (136-145) mmol/L Potassium (3.5-5.1) mmol/L Chloride (98-107) mmol/L Carbon Dioxide (21-32) mmol/L Anion Gap (3-11) BUN (6-23) mg/dl Creatinine (0.6-1.2) mg/dl Est Cr Clr Drug Dosing ml/min Est GFR ( Amer) ml/min Est GFR (Non-Af Amer) ml/min BUN/Creatinine Ratio (10-20) Glucose (70-99(Fasting)) mg/dl Calcium (8.6-10.3) mg/dl Total Bilirubin (0.2-1.0) mg/dl Direct Bilirubin (0-0.2) mg/dl AST (13-39) U/L ALT (7-52) U/L Alkaline Phosphatase (34-104) U/L Total Protein (6.0-8.3) gm/dl Albumin (3.4-5.0) gm/dl Globulin (2.5-4.0) gm/dl Albumin/Globulin Ratio (0.9-2) Lipase (11-82) U/L HCG, Qual Negative (Negative) Urine Color Yellow Urine Appearance Cloudy A (Clear) Urine pH 6.0 (4.5-7.5) Ur Specific [place] 1.040 H (1.000-1.030) Urine Protein Trace H (Negative) Urine Glucose (UA) Negative (Negative) Urine Ketones Trace H (Negative) Urine Blood Negative (Negative) Urine Nitrite Negative (Negative) Urine Bilirubin Negative (Negative) Urine Urobilinogen Negative (Negative) Ur Leukocyte Esterase 1+ H (Negative) Urine WBC (Auto) 10-30 H (0-5) /hpf Urine RBC (Auto) 5-10 H (0-4) /hpf U Hyaline Cast (Auto) 5-10 H (0-5) /lpf U Epithel Cells (Auto) >30 H (0-5) /lpf Urine Bacteria (Auto) 1+ H (Negative) SARS-CoV-2, RNA, NAAT (NEGATIVE) 07/30/22 07/30/22 07/30/22 Range/Units 23:28 23:28 23:28 WBC 8.59 (4.8-10.8) K/ul RBC 4.57 (4.20-5.40) M/uL Hgb 13.0 (12.0-16.0) g/dl Hct 38.9 (37.0-47.0) % MCV 85.1 (80.0-100.0) fL MCH 28.4 (25.0-34.0) pg MCHC 33.4 (32.0-36.0) g/dL RDW Std Deviation 39.4 (36.4-46.3) fL RDW Coeff of Jana 12.8 (11.5-14.5) % Plt Count 226 (130-400) K/uL MPV 10.4 (9.4-12.4) fL Immature Gran % (Auto) 0.2 % Neut % (Auto) 58.4 % Lymph % (Auto) 31.2 % [place] % (Auto) 7.8 % Eos % (Auto) 1.9 % Baso % (Auto) 0.5 % Neut # (Auto) 5.02 (1.40-6.50) K/uL Lymph # (Auto) 2.68 (1.2-3.4) K/uL [place] # (Auto) 0.67 H (0.11-0.59) K/uL Eos # (Auto) 0.16 (0-0.50) K/uL Baso # (Auto) 0.04 (0-0.2) K/uL Immature Gran # (Auto) 0.02 (0.01-0.20) K/uL PT Cancelled INR Cancelled APTT Cancelled PTT Ratio Cancelled Sodium 137 (136-145) mmol/L Potassium 3.8 (3.5-5.1) mmol/L Chloride 105 (98-107) mmol/L Carbon Dioxide 24 (21-32) mmol/L Anion Gap 8 (3-11) BUN 21 (6-23) mg/dl Creatinine 0.76 (0.6-1.2) mg/dl Est Cr Clr Drug Dosing 128.6 ml/min Est GFR ( Amer) 126.4 ml/min Est GFR (Non-Af Amer) 109.0 ml/min BUN/Creatinine Ratio 27.6 H (10-20) Glucose 91 (70-99(Fasting)) mg/dl Calcium 9.4 (8.6-10.3) mg/dl Total Bilirubin 0.6 (0.2-1.0) mg/dl Direct Bilirubin (0-0.2) mg/dl AST 28 (13-39) U/L ALT 42 (7-52) U/L Alkaline Phosphatase 55 (34-104) U/L Total Protein 7.6 (6.0-8.3) gm/dl Albumin 4.4 (3.4-5.0) gm/dl Globulin 3.2 (2.5-4.0) gm/dl Albumin/Globulin Ratio 1.4 (0.9-2) Lipase 34 (11-82) U/L HCG, Qual (Negative) Urine Color Urine Appearance (Clear) Urine pH (4.5-7.5) Ur Specific [place] (1.000-1.030) Urine Protein (Negative) Urine Glucose (UA) (Negative) Urine Ketones (Negative) Urine Blood (Negative) Urine Nitrite (Negative) Urine Bilirubin (Negative) Urine Urobilinogen (Negative) Ur Leukocyte Esterase (Negative) Urine WBC (Auto) (0-5) /hpf Urine RBC (Auto) (0-4) /hpf U Hyaline Cast (Auto) (0-5) /lpf U Epithel Cells (Auto) (0-5) /lpf Urine Bacteria (Auto) (Negative) SARS-CoV-2, RNA, NAAT (NEGATIVE) Diagnostic Findings Exam(s): US GALLBLADDER EXAM: US Abdomen Limited, Gallbladder CLINICAL HISTORY: Reason for exam: RUQ pain, h/o gallstones. TECHNIQUE: Real-time ultrasound of the right upper quadrant with image documentation. COMPARISON: No relevant prior studies available. FINDINGS: Gallbladder: Cholelithiasis. No gallbladder wall thickening. No ultrasound evidence of acute cholecystitis. Common bile duct: Small stone in the common bile duct. Mildly prominent common bile duct measures 6 mm. Pancreas: Unremarkable as visualized. IMPRESSION: Positive for choledocholithiasis, as described.
--- NOTE | 2022-07-31 10:27 | Anesthesiology Consultation ---
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 History Surgery Operation Date: 07/31/22 07:00 Proposed Procedures p Endoscopic Retrograde Cholangiopancreatogram - Dg Segal DO Height/Weight Height: 5 ft 7 in Weight: 87.5 kg Allergies Allergy/AdvReac Type Severity Reaction Status Date / Time latex Allergy Intermediate RASH Verified 07/09/22 10:06 Medications Home Medications Medication Instructions Recorded Confirmed Last Taken Lactobacillus acidophilus 10 10,000 mmu cells PO DAILY 03/18/22 07/30/22 09:00 billion cell capsule (Probiotic) lorazepam 0.5 mg tablet 0.5 mg PO DAILY PRN uncontrolled 07/09/22 07/30/22 Unknown anxiety / panic #30 tabs sertraline 50 mg tablet 50 mg PO DAILY #90 tabs 07/09/22 07/30/22 Unknown Active Medications Generic Name Dose Route Start Last Admin Trade Name Freq PRN Reason Stop Dose Admin Lactated Ringer's 1,000 mls @ 125 mls/hr 07/31/22 01:55 07/31/22 02:31 Lr IV 07/31/22 17:54 125 mls/hr .Q8H FREDIS Administration Ampicillin Sodium/Sulbactam 108 mls @ 200 mls/hr 07/31/22 08:30 07/31/22 09:53 Sodium 3,000 mg/ Sodium IV 08/10/22 08:29 Infused Chloride Q6H FREDIS Infusion Protocol Morphine Sulfate 2 mg 07/31/22 01:55 07/31/22 08:25 Morphine Sulfate 2 Mg/Ml Carp IV 08/14/22 01:54 2 mg Q3H PRN Administration Pain (1,2,3,4,5) & Pre PT Sertraline HCl 50 mg 07/31/22 09:00 07/31/22 09:01 Sertraline Hcl 50 Mg Tablet PO 08/30/22 08:59 50 mg DAILY FREDIS Administration Past Medical History Medical History Anxiety AVNRT (AV nimesh re-entry tachycardia) Migraine headache Mitral valve prolapse stable-unchanged since childhood. Pericarditis Past Family History Family History Grandmother (Paternal) Breast cancer Ovarian cancer Diabetes Aunt Breast cancer Mother Colorectal cancer Von Willebrand disease Father Prostate cancer Grandfather (Paternal) Diabetes Heart disease Grandfather (Maternal) Heart disease Denies family history of Myocardial infarction Lung cancer Stroke Past Surgical History Surgical History H/O cardiac radiofrequency ablation No pertinent past surgical history Status post lateral meniscus repair Social History Smoking Status: Never smoker Do You Dip or Chew Tobacco: No Hx Alcohol Use: No Alcohol type: beer Hx Substance Use: No substance use type: does not use Physical Exam Vital Signs Last Vital Signs Temp 97.9 F 07/31/22 07:42 Pulse 57 L 07/31/22 07:42 Resp 18 07/31/22 07:42 BP 99/62 L 07/31/22 07:42 Pulse Ox 96 07/31/22 07:42 O2 Del Method Room Air 07/31/22 07:42 Testing Laboratory Results 07/31/22 07:14 07/31/22 07:14 PT 10.7 Seconds (9.0-12.0) 07/31/22 00:37 INR 1.0 (0.9-1.1) 07/31/22 00:37 APTT 28.8 Seconds (21.0-31.0) 07/31/22 00:37 Urine Color Yellow 07/31/22 00:21 Urine Appearance Cloudy (Clear) A 07/31/22 00:21 Urine pH 6.0 (4.5-7.5) 07/31/22 00:21 Ur Specific [place] 1.040 (1.000-1.030) H 07/31/22 00:21 Urine Protein Trace (Negative) H 07/31/22 00:21 Urine Glucose (UA) Negative (Negative) 07/31/22 00:21 Urine Ketones Trace (Negative) H 07/31/22 00:21 Urine Nitrite Negative (Negative) 07/31/22 00:21 Ur Leukocyte Esterase 1+ (Negative) H 07/31/22 00:21 Urine WBC (Auto) 10-30 /hpf (0-5) H 07/31/22 00:21 Urine RBC (Auto) 5-10 /hpf (0-4) H 07/31/22 00:21 U Hyaline Cast (Auto) 5-10 /lpf (0-5) H 07/31/22 00:21 U Epithel Cells (Auto) >30 /lpf (0-5) H 07/31/22 00:21 Urine Bacteria (Auto) 1+ (Negative) H 07/31/22 00:21 Electrocardiogram Date: 05/23/22 Normal sinus rhythm, rate 63 bpm Cannot rule out Anterior infarct , age undetermined Abnormal ECG When compared with ECG of 31-OCT-2019 14:13, No significant change was found Confirmed by Jef Stanford ([id number]) on 05/24/2022 10:14:30 PM
[2022-07-31] MEDS ORDERED: ATROPINE SULFATE 0.1 MG/ML 10ML SYR IV PRN (12:09)
[2022-07-31] MEDS ORDERED: fentaNYL citrate PF 100 MCG/2 ML VIAL IV PRN (12:09)
[2022-07-31] MEDS ORDERED: PROMETHAZINE HCL 12.5 MG in SODIUM CHLORIDE 0.9% 50 ML IV PRN (12:09)
[2022-07-31] MEDS ORDERED: ePHEDrine sulfate 50 MG/ML AMP IV PRN (12:09)
[2022-07-31] MEDS ORDERED: LIDOCAINE 2% MPF LOCAL 5 ML VIAL ONE (12:09)
[2022-07-31] MEDS ORDERED: ONDANSETRON INJ 2 MG/ML 2 ML VIAL IV PRN (12:09)
[2022-07-31] MEDS ORDERED: ROCURONIUM BROMIDE 10 MG/ML 5 ML VIAL IV ONE (12:09)
[2022-07-31] MEDS ORDERED: NALOXONE HCL 0.4 MG/1 ML VIAL/CARP IV PRN (12:09)
[2022-07-31] MEDS ORDERED: PROPOFOL IV EMULSION 10 MG/ML 20 ML VIAL IV ONE (12:09)
[2022-07-31] MEDS ORDERED: DEXAMETHASONE SOD INJ 4 MG/ML VIAL ONE (12:09)
[2022-07-31] MEDS ORDERED: LABETALOL HCL IV 5 MG/ML 20ML IV PRN (12:09)
[2022-07-31] MEDS ORDERED: FLUMAZENIL 0.1 MG/1 ML 10 ML VIAL IV PRN (12:09)
[2022-07-31] MEDS ORDERED: ONDANSETRON INJ 2 MG/ML 2 ML VIAL ONE (12:09)
[2022-07-31] MEDS ORDERED: MIDAZOLAM HCL 1 MG/ML 2ML VIAL ONE (12:10)
[2022-07-31] MEDS ORDERED: fentaNYL citrate PF 100 MCG/2 ML VIAL ONE (12:10)
--- NOTE | 2022-07-31 12:31 | History & Physical Bridge Note ---
Date of Service July 31, 2022 History & Physical Bridge Note I have examined the patient, reviewed the History & Physical and in the interval since the performance of the History & Physical I have noted the following changes of clinical significance: no changes noted
--- NOTE | 2022-07-31 13:08 | Post Operative Brief Note ---
Immediate Post Op Note v1 Date of Surgery July 31, 2022 Pre & Post Diagnosis Operation Date: 07/31/22 07:00 Pre-Op Diagnosis: CHOLEDOCHOLITHIASIS Post-Op Diagnosis: Gallstones. I identified the patient and participated in the time-out.: Yes Procedure Operation Date: 07/31/22 07:00 <No data on this case meets the specified criteria> Surgeon Dg Segal, Color Maker Dyer none Estimated Blood Loss 0 Findings Consistent with Post-Op Diagnosis
--- NOTE | 2022-07-31 13:10 | Communication Note ---
Date of Service: July 31, 2022 The patient underwent ERCP this afternoon. We removed numerous gallstones from the common bile duct, performed a biliary sphincterotomy and placed a biliary stent. Recommendations Continue IV hydration overnight May have clear liquids tonight then advance as tolerated. Complete a 10-day course of broad-spectrum antibiotics ERCP in 6 to 8 weeks for stent removal Cholecystectomy per General surgery
--- NOTE | 2022-07-31 13:16 | GI REPORT ---
Patient Name: Patrick Callejas Procedure Date: 07/31/2022 12:34 PM Date of : 1995 Admit Type: Inpatient Age: 26 Gender: Female Attending MD: Dg Segal DO, Procedure: ERCP Providers: Dg Segal DO Referring MD: Esvin Rico Indications: Abdominal pain of suspected biliary origin, Bile duct stone on Ultrasound, For therapy of bile duct stone(s) Medicines: General Anesthesia Complications: No immediate complications. Estimated blood loss: Minimal. Estimated Blood Loss: Estimated blood loss was minimal. Procedure: Pre-Anesthesia Assessment: - Prior to the procedure, a History and Physical was performed, and patient medications, allergies and sensitivities were reviewed. The patient's tolerance of previous anesthesia was reviewed. - The risks and benefits of the procedure and the sedation options and risks were discussed with the patient. All questions were answered and informed consent was obtained. - Patient identification and proposed procedure were verified prior to the procedure by the physician, the nurse and the underwriting sales representative. The procedure was verified in the procedure room. - Pre-procedure physical examination revealed no contraindications to sedation. - ASA Grade Assessment: II - A patient with mild systemic disease. - After reviewing the risks and benefits, the patient was deemed in satisfactory condition to undergo the procedure. - The anesthesia plan was to use general anesthesia. - Immediately prior to administration of medications, the patient was re-assessed for adequacy to receive sedatives. - The heart rate, respiratory rate, oxygen saturations, blood pressure, adequacy of pulmonary ventilation, and response to care were monitored throughout the procedure. - The physical status of the patient was re-assessed after the procedure. After obtaining informed consent, the scope was passed under direct vision. Throughout the procedure, the patient's blood pressure, pulse, and oxygen saturations were monitored continuously. The Duodenoscope was introduced through the mouth, and advanced to the duodenum and used to inject contrast into the bile duct. The ERCP was accomplished without difficulty. The patient tolerated the procedure well. Findings: The fleet administrator film was normal. The esophagus was successfully intubated under direct vision without detailed examination of the pharynx, larynx, and associated structures, and upper GI tract. The upper GI tract was grossly normal. The major papilla was normal. The bile duct was deeply cannulated with the short-nosed traction sphincterotome and guidewire. Contrast was injected. I personally interpreted the bile duct images. Contrast extended to the entire biliary tree. The lower third of the main bile duct and middle third of the main bile duct contained filling defect(s) thought to be a stone and sludge. Biliary sphincterotomy was made with a monofilament Fusion OMNI sphincterotome using ERBE electrocautery. There was no post-sphincterotomy bleeding. To discover objects, the biliary tree was swept with an 11.5 mm balloon starting at the bifurcation. Sludge was swept from the duct. Many stones were removed. No stones remained. One 10 Fr by 7 cm biliary stent with a single external flap and a single internal flap was placed 7 cm into the common bile duct. Bile flowed through the stent. The stent was in good position. The endoscope was withdrawn from the patient. Indomethacin 100 mg was given via suppository to decrease the risk of post-ERCP pancreatitis (PEP). Impression: - The major papilla appeared normal. - A filling defect consistent with a stone and sludge was seen on the cholangiogram. - Choledocholithiasis was found. Complete removal was accomplished by biliary sphincterotomy and balloon extraction. - A biliary sphincterotomy was performed. - The biliary tree was swept. - One biliary stent was placed into the common bile duct. - Indomethacin given to decrease risk of post-ERCP pancreatitis. Recommendation: - Avoid aspirin and nonsteroidal anti-inflammatory medicines for 1 week. - Clear liquid diet today. - Use broad spectrum antibiotics for 10 days. - Cholecystectomy per General Surgery - Repeat ERCP in 6 weeks to remove stent. Dg Segal D.O. Dg Segal, 07/31/2022 1:15:33 PM This report has been signed electronically. Note Initiated On: 07/31/2022 12:34 PM Number of Addenda: 0 I attest to the content of the Intraoperative Record and orders documented therein, exceptions below {[id number]}
--- NOTE | 2022-07-31 13:35 | Anesthesiology Progress Note ---
Date of Service July 31, 2022 Anesthesia Post Procedure Vital Signs Vital Signs: Temp Pulse Pulse Resp BP BP Pulse Ox 07/31/22 13:25 60 16 119/70 100 07/31/22 13:15 55 L 19 116/65 100 07/31/22 13:09 36.8 C 66 16 126/67 100 07/31/22 11:59 36.8 C 63 16 117/62 98 07/31/22 07:42 36.6 C 57 L 18 99/62 L 96 07/31/22 02:00 36.6 C 62 16 130/79 99 07/31/22 00:38 61 16 118/67 98 07/31/22 00:17 64 07/30/22 23:03 36.3 C L 76 18 116/80 98 O2 Del Method O2 Flow Rate 07/31/22 13:25 Oxymask 3 07/31/22 13:15 Oxymask 5 07/31/22 13:09 Oxymask 7 07/31/22 11:59 Room Air 07/31/22 07:42 Room Air 07/31/22 02:00 Room Air 07/31/22 00:38 Room Air 07/31/22 00:17 07/30/22 23:03 Room Air Pain Intensity Right Upper Abdomen: Pain Intensity: 0 Transfer of Care Handoff Completed per policy Notes Mental Status: alert / awake / arousable Patient Amnestic to Procedure: Yes Nausea / Vomiting: adequately controlled Pain: adequately controlled Airway Patency, RR, SpO2: stable & adequate BP & HR: stable & adequate Hydration State: stable & adequate Anesthetic Complications: no major complications apparent
[2022-07-31] MEDS: MoRPHine SULFATE 4 MG/ML 1 ML CARP\\VIAL IV PRN ×3 (14:08→20:14)
[2022-07-31] MEDS: ONDANSETRON INJ 2 MG/ML 2 ML VIAL IV PRN ×2 (14:25→19:15)
--- NOTE | 2022-07-31 14:27 | Fluoroscopy Report ---
[place] ERCP biliary ductal CLINICAL HISTORY: ERCP. Choledocholithiasis. COMPARISON STUDY: Abdominal ultrasound 07/30/2021. FLUOROSCOPY TIME: 18 seconds. FLUOROSCOPY IMAGES: 6 EXPOSURE DOSE: Ka,r: 3.2 mGy FINDINGS: The ampulla was cannulated and contrast was injected into the common bile duct. A balloon s weep was performed. This is followed by placement of a common bile duct stent appears in good positio n. IMPRESSION: Fluoroscopic assistance as described above. ACT 112: Negative or not required by law. Electronically signed by: Flako Sanford M.D. 07/31/2022 2:25 PM
--- NOTE | 2022-07-31 16:32 | Hospitalist Progress Note ---
Date of Service July 31, 2022 Assessment & Plan (1) Choledocholithiasis: Plan: ERCP completed today. She had sphincterotomy with stone removal and common bile duct stent placement. She is now on intravenous Unasyn. IV fluids have been decreased and diet has been advanced. Appreciate GI consultation and recommendations. Right upper quadrant ultrasound revealed choledocholithiasis and mildly enlarged common bile duct at 6 mm. No acute cholecystitis. (2) Anxiety: Plan: Chronic. Well-controlled. Continue sertraline 50 mg p.o. daily Plan Anticipate discharge to home tomorrow, on August 01, on oral antibiotic Admission and Anticipated Discharge Date Admission Date: July 31, 2022 Subjective The patient was seen after ERCP procedure today by gastroenterology. She had a sphincterotomy with common bile duct stone removal and a stent was placed. She is now on intravenous Unasyn. Diet has been advanced. She probably will go home tomorrow, August 01, on Augmentin. Review of Systems Review of Systems: Constitutional-no fever or chills ENT-no blurred vision, no double vision, no epistaxis, no sore throat Respiratory-no cough, no wheezing, no shortness of breath Cardiac-no palpitations, no chest pain, no syncope GI-no nausea, vomiting, diarrhea, melena, hematochezia -no urinary retention, no urinary incontinence, no dysuria, no hematuria Musculoskeletal-no joint pain, no muscle tenderness Skin-no bruising, no rashes, no pruritus Neuro-no isolated weakness, no paresthesia, no weakness Psych-no depression, no anxiety Physical Exam Physical Exam: General-alert and oriented x3, no fevers, no chills HEENT-head atraumatic and normocephalic, pupils equal and reactive to light, extraocular muscles intact Neck-no lymphadenopathy or thyromegaly, trachea midline Chest-clear to auscultation percussion. No rales wheezing or rhonchi Cardiac-regular rate and rhythm, normal S1 and S2 Abdomen-normal bowel sounds, nontender, no hepatosplenomegaly Extremities-no cyanosis, clubbing, or edema Neuro-cranial nerves II through XII intact, motor and sensory function within normal limits, strength symmetrical , no focal deficits Psych-normal affect, normal mood Results & Data Results & Data Vital Signs (Past 12 Hours) Vital Signs Temp Pulse Resp BP Pulse Ox O2 Del Method O2 Flow Rate 03/24/23 14:49 36.6 C 70 16 114/73 96 Room Air 07/31/22 13:25 60 16 119/70 100 Oxymask 3 07/31/22 13:35 62 14 124/67 96 Oxymask 1 07/31/22 13:15 55 L 19 116/65 100 Oxymask 5 07/31/22 13:09 36.8 C 66 16 126/67 100 Oxymask 7 07/31/22 11:59 36.8 C 63 16 117/62 98 Room Air 07/31/22 07:42 36.6 C 57 L 18 99/62 L 96 Room Air Laboratory Results 07/31/22 07:14 07/31/22 07:14 PG Care Time/CCT Total # of Minutes Spent Total Time Spent with Patient: Total time spent is greater than 50% in coordination of care (as documented) at patient's floor/unit and/or counseling patient: Coding Level of Care Code 29222 SUB INP/OBS CARE 3/50MIN Diagnoses Choledocholithiasis K80.50 Anxiety F41.9
[2022-08-01] MEDS: AMPICILLIN/SULBACTAM SOD 3,000 MG in 0.9 % SODIUM CHLORIDE 100 ML IV SCH ×2 (02:15→08:00)
[2022-08-01 07:59] LABS: Hematocrit (blood only) 37.3 % (37.0-47.0); Hemoglobin 12.8 g/dl (12.0-16.0); Mean Corpuscular Hemoglobin 28.6 pg (25.0-34.0); Mean Corpuscular Hgb Conc 34.3 g/dL (32.0-36.0); Mean Corpuscular Volume 83.4 fL (80.0-100.0); Mean Platelet Volume 10.5 fL (9.4-12.4); Platelet Count 249 K/uL (130-400); RDW Coefficient of Variation 12.5 % (11.5-14.5); RDW Standard Deviation 37.9 fL (36.4-46.3); Red Blood Count 4.47 M/uL (4.20-5.40)
[2022-08-01] MEDS: SERTRALINE HCL 50 MG TABLET PO SCH (08:01)
[2022-08-01 08:37] LABS: Bilirubin Direct 0.1 mg/dl (0-0.2)
[2022-08-01 08:38] LABS: Albumin Level 3.9 gm/dl (3.4-5.0); BUN Creatinine Ratio 20.6 (10-20); Bilirubin,Total 0.7 mg/dl (0.2-1.0); Calcium 8.9 mg/dl (8.6-10.3); Creatinine Clr Calc Pharmacy 143.7 ml/min; Est GFR (African American) 140.9 ml/min; Est GFR (Non-African American) 121.6 ml/min; Potassium 3.8 mmol/L (3.5-5.1); Total Protein 6.9 gm/dl (6.0-8.3)
--- NOTE | 2022-08-01 09:30 | Discharge Summary ---
Date of Service August 01, 2022 Admission HPI Per Admitting Provider Patrick Callejas is a pleasant 26-year-old female presenting with right upper quadrant pain. She reports that last 4 months (since she had her daughter) she has been experiencing intermittent right upper quadrant abdominal pain. She has been seen in the outpatient setting for this 2 weeks ago and had a right upper quadrant ultrasound performed which confirmed the presence of gallstones without acute cholecystitis or intra or extrahepatic biliary ductal dilatation. Patient presents this evening with acute severe right upper quadrant pain that began after dinner. Her pain radiates through to her back and is associated with abdominal bloating, nausea, vomiting and diarrhea. She denies fever/chills/chest pain/cough/shortness of breath. No additional complaints at this time. In the ER, patient is afebrile, hemodynamically stable. Still in significant pain which has improved with administration of IV morphine 4 mg. Labs as below largely unremarkablespecifically normal WBC count, normal liver studies and normal lipase. Right upper quadrant ultrasound performed with choledocholithiasis ER course: Morphine Zofran Normal saline Principal Diagnosis Choledocholithiasis with right upper quadrant pain Discharge Exam General-alert and oriented x3, no fevers, no chills HEENT-head atraumatic and normocephalic, pupils equal and reactive to light, extraocular muscles intact Neck-no lymphadenopathy or thyromegaly, trachea midline Chest-clear to auscultation percussion. No rales wheezing or rhonchi Cardiac-regular rate and rhythm, normal S1 and S2 Abdomen-normal bowel sounds, nontender, no hepatosplenomegaly Extremities-no cyanosis, clubbing, or edema Neuro-cranial nerves II through XII intact, motor and sensory function within normal limits, strength symmetrical , no focal deficits Psych-normal affect, normal mood Discharge Data Allergies Allergy/AdvReac Type Severity Reaction Status Date / Time latex Allergy Intermediate RASH Verified 07/09/22 10:06 Consultations 07/31/22 01:13 ED Decision to Admit Stat 07/31/22 01:42 Consult General Surgery Routine 07/31/22 01:55 Consult Gastroenterology Routine Procedures Performed Operation Date: 07/31/22 07:00 Actual Procedures p Endoscopic Retrograde Cholangiopancreatography with stent placement. (Not Ap plicable) - Dg Segal DO Ordered Studies 07/30/22 23:21 US gallbladder Stat 07/31/22 12:30 [place] ERCP biliary ductal Routine Hospital Course (1) Choledocholithiasis: ERCP completed on July 31. She had sphincterotomy with stone removal and common bile duct stent placement. She was treated with intravenous Unasyn. She will be discharged on Augmentin. IV fluids discontinued. Diet has been advanced. Appreciate GI consultation and recommendations. Right upper quadrant ultrasound revealed choledocholithiasis and mildly enlarged common bile duct at 6 mm. No acute cholecystitis. (2) Anxiety: Chronic. Well-controlled. Continue sertraline 50 mg p.o. daily Plan Home today, August 01, on Augmentin for 10 days. Follow-up with GI service for common bile duct stent removal Total Time Total Time Spent Total Time Spent (In Minutes): 40 minutes Discharge Plan Discharge Items Patient Disposition: Home - Self-Care Reason For Visit: CHOLEDOCHOLITHIASIS Discharge Diagnosis: Choledocholithiasis with right upper quadrant pain Condition on Discharge: Good Activity: Resume your previous activity Non-emergency contact: Primary Care Provider Call non-emergency contact if: you have any medication questions and your symptoms worsen Follow-up/Referrals: Samuel Moore MD [Physician] - None (Please call office to set up an appointment with DR. moore for next week) Katerine Kelsey MD [Primary Care Provider] - Diet: Regular Addtl Attending Provider Instructions: Take Augmentin for 10 days. Follow-up with GI service for stent removal Pending Studies at Discharge: No Stand-Alone Forms: [employer], Smoking Cessation Medications and DC Order Prescriptions: New amoxicillin-pot clavulanate 875-125 mg tablet 1 tab PO BID Qty: 20 0RF Continued sertraline 50 mg tablet 50 mg PO DAILY Qty: 90 1RF lorazepam 0.5 mg tablet 0.5 mg PO DAILY PRN (Reason: uncontrolled anxiety / panic) Qty: 30 0RF Probiotic 10 billion cell Capsule 10,000 mmu cells PO DAILY Discharge Orders: Discharge Order (Routine); Ordered 08/01/22 Ordered By: Esvin Rico Admission Data Admit Date/Time: 07/31/22 01:21 Attending Provider: Esvin Rico Admit Provider: Coni Escamilla Primary Care Provider: Katerine Kelsey Other Providers: Coni Escamilla ; Smauel Moore ; Kane Galan Coding Level of Care Code 42213 INP/OBS DISCH >30 MIN Diagnoses Choledocholithiasis K80.50 Anxiety F41.9
[2022-08-01] MEDS: ONDANSETRON INJ 2 MG/ML 2 ML VIAL IV PRN (09:49)
--- NOTE | 2022-08-01 10:36 | Discharge Summary ---
Date of Service August 01, 2022 Admission HPI Per Admitting Provider Patrick Callejas is a pleasant 26-year-old female presenting with right upper quadrant pain. She reports that last 4 months (since she had her daughter) she has been experiencing intermittent right upper quadrant abdominal pain. She has been seen in the outpatient setting for this 2 weeks ago and had a right upper quadrant ultrasound performed which confirmed the presence of gallstones without acute cholecystitis or intra or extrahepatic biliary ductal dilatation. Patient presents this evening with acute severe right upper quadrant pain that began after dinner. Her pain radiates through to her back and is associated with abdominal bloating, nausea, vomiting and diarrhea. She denies fever/chills/chest pain/cough/shortness of breath. No additional complaints at this time. In the ER, patient is afebrile, hemodynamically stable. Still in significant pain which has improved with administration of IV morphine 4 mg. Labs as below largely unremarkablespecifically normal WBC count, normal liver studies and normal lipase. Right upper quadrant ultrasound performed with choledocholithiasis ER course: Morphine Zofran Normal saline Principal Diagnosis Choledocholithiasis, right upper quadrant pain Discharge Data Allergies Allergy/AdvReac Type Severity Reaction Status Date / Time latex Allergy Intermediate RASH Verified 07/09/22 10:06 Consultations 07/31/22 01:13 ED Decision to Admit Stat 07/31/22 01:42 Consult General Surgery Routine 07/31/22 01:55 Consult Gastroenterology Routine Procedures Performed Operation Date: 07/31/22 07:00 Actual Procedures p Endoscopic Retrograde Cholangiopancreatography with stent placement. (Not Applicable) - Dg Segal, Ordered Studies 07/30/22 23:21 gallbladder Stat 07/31/22 12:30 [place] ERCP biliary ductal Routine Total Time Total Time Spent Total Time Spent (In Minutes): 40 minutes Discharge Plan Discharge Items Patient Disposition: Home - Self-Care Reason For Visit: CHOLEDOCHOLITHIASIS Discharge Diagnosis: Choledocholithiasis with right upper quadrant pain Condition on Discharge: Good Activity: Resume your previous activity Non-emergency contact: Primary Care Provider Call non-emergency contact if: you have any medication questions and your symptoms worsen Follow-up/Referrals: Samuel Moore MD [Physician] - None (Please call office to set up an appointment with DR. moore for next week) Katerine Kelsey MD [Primary Care Provider] - Diet: Regular Addtl Attending Provider Instructions: Take Augmentin for 10 days. Follow-up with GI service for stent removal Pending Studies at Discharge: No Stand-Alone Forms: [facility], Smoking Cessation Medications and DC Order Prescriptions: New amoxicillin-pot clavulanate 875-125 mg tablet 1 tab PO BID Qty: 20 0RF ondansetron 4 mg tablet,disintegrating 4 mg PO Q6H PRN (Reason: nausea and vomiting) Qty: 20 0RF Continued sertraline 50 mg tablet 50 mg PO DAILY Qty: 90 1RF lorazepam 0.5 mg tablet 0.5 mg PO DAILY PRN (Reason: uncontrolled anxiety / panic) Qty: 30 0RF Probiotic 10 billion cell Capsule 10,000 mmu cells PO DAILY Discharge Orders: Discharge Order (Routine); Ordered 08/01/22 Ordered By: Esvin Morillo/Other Patient Handouts: What Are Gallstones Admission Data Admit Date/Time: 07/31/22 01:21 Attending Provider: Esvin Rico Admit Provider: Coni Escamilla Primary Care Provider: Katerine Kelsey Other Providers: Coni Escamilla ; Samuel Moore ; Kane Galan Other Interventions: Discharge Summary Assessment (RN) Last Done: 08/01/22 10:23 Coding Level of Care Code 48399 INP/OBS DISCH >30 MIN Diagnoses
== END 2022-08-01 11:16 | disposition home or self-care (01) ==
LOC: 3W 23:01 → ED 23:01 → SUATTDRO 07-31 01:21 → 3W 07-31 01:49

== ENCOUNTER 2022-08-01 16:12 | Inpatient (IN) ==
[2022-08-01 17:07] LABS: Basophils # (auto) 0.03 K/uL (0-0.2); Basophils % (auto) 0.3 %; Eosinophils # (auto) 0.06 K/uL (0-0.50); Eosinophils % (auto) 0.6 %; Hemoglobin 12.8 g/dl (12.0-16.0); Immature Granulocytes # (auto) 0.02 K/uL (0.01-0.20); Immature Granulocytes % (auto) 0.2 %; Lymphocytes # (auto) 2.74 K/uL (1.2-3.4); Lymphocytes % (auto) 29.7 %; Mean Corpuscular Hemoglobin 28.3 pg (25.0-34.0); Mean Corpuscular Hgb Conc 33.7 g/dL (32.0-36.0); Mean Corpuscular Volume 84.1 fL (80.0-100.0); Mean Platelet Volume 10.3 fL (9.4-12.4); Monocytes # (auto) 0.75 K/uL (0.11-0.59); Monocytes % (auto) 8.1 %; Neutrophils # (auto) 5.64 K/uL (1.40-6.50); Neutrophils % (auto) 61.1 %; Platelet Count 245 K/uL (130-400); RDW Coefficient of Variation 12.5 % (11.5-14.5); RDW Standard Deviation 37.6 fL (36.4-46.3); Red Blood Count 4.52 M/uL (4.20-5.40); White Blood Count 9.24 K/ul (4.8-10.8)
[2022-08-01 17:24] LABS: Albumin Globulin Ratio 1.3 (0.9-2); Albumin Level 4.3 gm/dl (3.4-5.0); BUN Creatinine Ratio 22.4 (10-20); Bilirubin,Total 0.6 mg/dl (0.2-1.0); Est GFR (African American) 126.4 ml/min; Globulin 3.2 gm/dl (2.5-4.0); Potassium 3.5 mmol/L (3.5-5.1); Total Protein 7.5 gm/dl (6.0-8.3)
[2022-08-01 17:39] LABS: Pregnancy Test, Serum Negative (Negative)
[2022-08-01] MEDS ORDERED: SODIUM CHLORIDE 0.9% 1000ML 1,000 ML IV ONE (18:52)
[2022-08-01] MEDS ORDERED: ONDANSETRON INJ 2 MG/ML 2 ML VIAL IV STA ×2 (18:52→21:37)
[2022-08-01] MEDS: fentaNYL citrate PF 100 MCG/2 ML VIAL IV PRN ×2 (19:00→21:42)
--- NOTE | 2022-08-01 19:00 | Emergency Department Note ---
Impression & Plan Right upper quadrant abdominal pain, Nausea & vomiting ED Provider Note NAME: MARKOS HALL AGE: 26 SEX: F : 1995 ARRIVES VIA: Walk-In INFORMANT: Patient, ED PROVIDER(S): Pedro Pablo Davis DO CHIEF COMPLAINT: Abdominal pain HPI: The patient is a 26-year-old female who had an ERCP yesterday morning for a gallstone as well as sludge. She states that when she went home she started having pain in her upper abdomen as well as her back. She denies having any fever but she has had nausea and vomiting. The pain has been moderate to s evere. When she was discharged from the hospital she was told to return to the emergency department immediately if she develop worsening symptoms. She presented to the emergency department today. She has been taking [id number] medication with only minimal relief. She did not call the on-call GI doctor. ROS: See above HPI for pertinent positives & negatives. A total of 10 systems reviewed and were otherwise negative. PAST MEDICAL HISTORY: See Below PAST SURGICAL HISTORY: See Below FAMILY HISTORY: See Below SOCIAL HISTORY: See Below HOME MEDICATIONS: See Below ALLERGIES: See Below VITALS: See Below PHYSICAL EXAMINATION: GENERAL: The patient is awake and alert. She is very anxious and uncomfortable appearing. EYES: The conjunctivae are clear. The pupils are round and reactive. EARS, NOSE, MOUTH AND THROAT: The nose is without any evidence of any deformity. NECK: The neck is nontender and supple. RESPIRATORY: Normal respiratory effort is noted there is no evidence of wheezing rhonchi or rales CARDIOVASCULAR: Regular rate and rhythm noted there no murmurs rubs or gallops normal S1 normal S2. GASTROINTESTINAL: The abdomen is soft and mildly distended. There is right upper quadrant and epigastric tenderness to palpation which is moderate but there is no guarding. MUSCULOSKELETAL/EXTREMITIES: There is no evidence of gross deformity full range of motion is noted in the hips and shoulders. SKIN: There is no obvious evidence of any rash. There are no petechiae, pallor or cyanosis noted. NEUROLOGIC: Patient is awake alert and oriented x3 MEDICAL DECISION MAKING: The patient is a 26-year-old female who presented to the emergency department for an evaluation of nausea and vomiting. The patient recently had an ERCP with a stent placed in her biliary tree. She had removal of choledocholithiasis. She was found to have extensive gallstones. The patient was able to be discharged home after the procedure but returned tonight because of increasing pain nausea and vomiting. I discussed the patient's laboratory and radiographic studies with her. I discussed her condition with the on-call [facility] rouge sifter and miller as well as the on-call surgeon. They have agreed to evaluate the patient for further management and disposition. The patient was treated with IV fluids and IV pain medication. She was also treated with IV antiemetics. Triage Nursing notes reviewed. Prior medical records reviewed Vital Signs: reviewed and remarkable for no significant abnormalities Differential diagnosis: Etiologies such as appendicitis, diverticulitis, obstruction, inflammatory bowel disease, renal colic, PUD, biliary pathology, pancreatitis, mesenteric ischemia, aortic pathology, infections, genitourinary, UTI, perforated viscus, as well as others were entertained. ER treatment provided: See below Diagnostics interpreted by me: ECG: none Cardiac Monitoring: An order was placed for continuous cardiac monitoring. The monitor shows a rate of 62 bpm with sinus rhythm. Laboratory studies: As stated above and show below. Imaging studies: See below. Radiographic imaging was reviewed by myself Consultation(s): I discussed this case with Dr. Higuera who is on-call for [facility] GI. I discussed this case with Cuate Morris who is on-call for general surgery. Past Med/Surg History Medical History Anxiety AVNRT (AV nimesh re-entry tachycardia) Migraine headache Mitral valve prolapse stable-unchanged since childhood. Pericarditis Surgical History H/O cardiac radiofrequency ablation No pertinent past surgical history Status post lateral meniscus repair Family History Grandmother (Paternal) Breast cancer Ovarian cancer Diabetes Aunt Breast cancer Mother Colorectal cancer Von Willebrand disease Father Prostate cancer Grandfather (Paternal) Diabetes Heart disease Grandfather (Maternal) Heart disease Denies family history of Myocardial infarction Lung cancer Stroke Social History Smoking Status: Never smoker Second Hand Exposure: No; Hx Alcohol Use: No Hx Substance Use: No Preferred Language: Chinese Communication Ability: Effective Visual Impairment: No Limitations Hearing Ability: Normal 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 Required: No Beliefs That Will Affect Care: None marital status: marital status details: Daniel(25) [phone] Current Living Situation: Spouse Current Living Situation Comment: lives with and cat current occupational status: employed current occupation: [employer] Feels Safe at Home: Yes Childhood Exposure to Second-Hand Smoke: No Dental Care, Regularly: Yes Seatbelt Use: always Sunscreen Use: Yes Assistive Devices: None Allergies Allergies Allergy/AdvReac Type Severity Reaction Status Date / Time latex Allergy Intermediate RASH Verified 07/09/22 10:06 Home Meds Home Medications Medication Instructions Recorded Confirmed Lactobacillus acidophilus 10 10,000 mmu cells PO DAILY 03/18/22 07/30/22 billion cell capsule (Probiotic) Previous Rx's Medication Instructions Recorded lorazepam 0.5 mg tablet 0.5 mg PO DAILY PRN uncontrolled 07/09/22 anxiety / panic #30 tabs sertraline 50 mg tablet 50 mg PO DAILY #90 tabs 07/09/22 amoxicillin 875 mg-potassium 1 tab PO BID #20 tabs 08/01/22 clavulanate 125 mg tablet ondansetron 4 mg disintegrating 4 mg PO Q6H PRN nausea and 08/01/22 tablet vomiting #20 tabs Results & Data (ED) Vital Signs Vital Signs - 24 hr 08/01/22 16:13 08/01/22 18:43 08/01/22 21:43 Temperature 36.3 C L Temperature Source Temporal Artery Scan Pulse Rate 80 Pulse Rate [Finger] 63 60 Respiratory Rate 16 18 20 Respiratory Effort / Characteristics Non-Labored Non-Labored Respiratory Depth Normal Normal Blood Pressure 129/77 Blood Pressure [Right Arm] 130/67 115/75 Blood Pressure Mean 94 Blood Pressure Mean [Right Arm] 88 88 Pulse Oximetry 97 97 98 Oxygen Delivery Method Room Air Room Air Sepsis Recent Fever Within 48 Hours No Sepsis New/Unexplained Change in Mental Status N/A Sepsis Action Taken by Nursing No Action Required Home Medications Current Medication List: was personally reviewed by me Laboratory Data Attestation: I reviewed the patient's lab results. 08/01/22 16:52 08/01/22 16:52 Lab Results 08/01/22 08/01/22 08/01/22 Range/Units 16:52 16:52 16:52 WBC 9.24 (4.8-10.8) K/ul RBC 4.52 (4.20-5.40) M/uL Hgb 12.8 (12.0-16.0) g/dl Hct 38.0 (37.0-47.0) % MCV 84.1 (80.0-100.0) fL MCH 28.3 (25.0-34.0) pg MCHC 33.7 (32.0-36.0) g/dL RDW Std Deviation 37.6 (36.4-46.3) fL RDW Coeff of Jana 12.5 (11.5-14.5) % Plt Count 245 (130-400) K/uL MPV 10.3 (9.4-12.4) fL Immature Gran % (Auto) 0.2 % Neut % (Auto) 61.1 % Lymph % (Auto) 29.7 % Rush % (Auto) 8.1 % Eos % (Auto) 0.6 % Baso % (Auto) 0.3 % Neut # (Auto) 5.64 (1.40-6.50) K/uL Lymph # (Auto) 2.74 (1.2-3.4) K/uL Rush # (Auto) 0.75 H (0.11-0.59) K/uL Eos # (Auto) 0.06 (0-0.50) K/uL Baso # (Auto) 0.03 (0-0.2) K/uL Immature Gran # (Auto) 0.02 (0.01-0.20) K/uL Sodium 140 (136-145) mmol/L Potassium 3.5 (3.5-5.1) mmol/L Chloride 106 (98-107) mmol/L Carbon Dioxide 26 (21-32) mmol/L Anion Gap 8 (3-11) BUN 17 (6-23) mg/dl Creatinine 0.76 (0.6-1.2) mg/dl Est Cr Clr Drug Dosing 128.0 ml/min Est GFR ( Amer) 126.4 ml/min Est GFR (Non-Af Amer) 109.0 ml/min BUN/Creatinine Ratio 22.4 H (10-20) Glucose 91 (70-99(Fasting)) mg/dl Calcium 9.0 (8.6-10.3) mg/dl Total Bilirubin 0.6 (0.2-1.0) mg/dl AST 40 H (13-39) U/L ALT 85 H (7-52) U/L Alkaline Phosphatase 61 (34-104) U/L Total Protein 7.5 (6.0-8.3) gm/dl Albumin 4.3 (3.4-5.0) gm/dl Globulin 3.2 (2.5-4.0) gm/dl Albumin/Globulin Ratio 1.3 (0.9-2) Lipase 54 (11-82) U/L HCG, Qual Negative (Negative) Urine Color Urine Appearance (Clear) Urine pH (4.5-7.5) Ur Specific [place] (1.000-1.030) Urine Protein (Negative) Urine Glucose (UA) (Negative) Urine Ketones (Negative) Urine Blood (Negative) Urine Nitrite (Negative) Urine Bilirubin (Negative) Urine Urobilinogen (Negative) Ur Leukocyte Esterase (Negative) Urine WBC (Auto) (0-5) /hpf Urine RBC (Auto) (0-4) /hpf U Hyaline Cast (Auto) (0-5) /lpf U Epithel Cells (Auto) (0-5) /lpf Urine Bacteria (Auto) (Negative) 08/01/22 Range/Units 18:47 WBC (4.8-10.8) K/ul RBC (4.20-5.40) M/uL Hgb (12.0-16.0) g/dl Hct (37.0-47.0) % MCV (80.0-100.0) fL MCH (25.0-34.0) pg MCHC (32.0-36.0) g/dL RDW Std Deviation (36.4-46.3) fL RDW Coeff of Jana (11.5-14.5) % Plt Count (130-400) K/uL MPV (9.4-12.4) fL Immature Gran % (Auto) % Neut % (Auto) % Lymph % (Auto) % Rush % (Auto) % Eos % (Auto) % Baso % (Auto) % Neut # (Auto) (1.40-6.50) K/uL Lymph # (Auto) (1.2-3.4) K/uL Rush # (Auto) (0.11-0.59) K/uL Eos # (Auto) (0-0.50) K/uL Baso # (Auto) (0-0.2) K/uL Immature Gran # (Auto) (0.01-0.20) K/uL Sodium (136-145) mmol/L Potassium (3.5-5.1) mmol/L Chloride (98-107) mmol/L Carbon Dioxide (21-32) mmol/L Anion Gap (3-11) BUN (6-23) mg/dl Creatinine (0.6-1.2) mg/dl Est Cr Clr Drug Dosing ml/min Est GFR ( Amer) ml/min Est GFR (Non-Af Amer) ml/min BUN/Creatinine Ratio (10-20) Glucose (70-99(Fasting)) mg/dl Calcium (8.6-10.3) mg/dl Total Bilirubin (0.2-1.0) mg/dl AST (13-39) U/L ALT (7-52) U/L Alkaline Phosphatase (34-104) U/L Total Protein (6.0-8.3) gm/dl Albumin (3.4-5.0) gm/dl Globulin (2.5-4.0) gm/dl Albumin/Globulin Ratio (0.9-2) Lipase (11-82) U/L HCG, Qual (Negative) Urine Color Dark Yellow Urine Appearance Clear (Clear) Urine pH 5.5 (4.5-7.5) Ur Specific [place] 1.039 H (1.000-1.030) Urine Protein Trace H (Negative) Urine Glucose (UA) Negative (Negative) Urine Ketones Trace H (Negative) Urine Blood 2+ H (Negative) Urine Nitrite Negative (Negative) Urine Bilirubin Negative (Negative) Urine Urobilinogen Negative (Negative) Ur Leukocyte Esterase Negative (Negative) Urine WBC (Auto) 1-5 (0-5) /hpf Urine RBC (Auto) >30 H (0-4) /hpf U Hyaline Cast (Auto) 1-5 (0-5) /lpf U Epithel Cells (Auto) >30 H (0-5) /lpf Urine Bacteria (Auto) Negative (Negative) Administered Medications Fentanyl Citrate (Fentanyl Citrate Pf 100 Mcg/2 Ml Vial) 50 mcg IV Q15M PRN PRN Reason: Pain Stop: 08/15/22 18:51 Last Admin: 08/01/22 21:42 Dose: 50 mcg Documented By: Admin: 08/01/22 19:00 Dose: 50 mcg Documented By: PHOEBE Discontinued Medications Sodium Chloride (Nss 1000ml) 1,000 mls @ 999 mls/hr IV .Q1H1M ONE Stop: 08/01/22 19:52 Last Infusion: 08/01/22 20:11 Dose: 0 mls/hr Documented By: Admin: 08/01/22 19:00 Dose: 999 mls/hr Documented By: PHOEBE Ondansetron HCl (Ondansetron Inj 2 Mg/Ml 2 Ml Vial) 4 mg IV NOW STA Stop: 08/01/22 18:53 Last Admin: 08/01/22 19:00 Dose: 4 mg Documented By: PHOEBE Ondansetron HCl (Ondansetron Inj 2 Mg/Ml 2 Ml Vial) 4 mg IV NOW STA Stop: 08/01/22 21:38 Last Admin: 08/01/22 21:42 Dose: 4 mg Documented By: Imaging Data Attestation: I personally reviewed and interpreted this imaging study as follows: My Impression: 1 view chest x-ray was obtained in the emergency department. My interpretation is no free air, no definite infiltrate, final report below. KUB was obtained in the emergency department. The stent was noted in the right upper quadrant. There is no free air, final report below. Radiologist's Impression: Chest X-Ray 08/01/22 18:52 SINGLE VIEW CHEST CLINICAL HISTORY: Vomiting. FINDINGS: An AP, portable, upright chest radiograph is compared to chest x-ray and chest CT dated 05/23/2022. The cardiomediastinal silhouette is unremarkable. The lungs and pleural spaces are clear. No pneumothorax is seen. The bony thorax is grossly intact. IMPRESSION: No active disease in the chest. ACT 112: Negative or not required by law. Electronically signed by: Fransico Borges M.D. 08/01/2022 7:45 PM KUB X-Ray 08/01/22 18:52 KUB CLINICAL HISTORY: Vomiting. FINDINGS: 2 AP portable supine abdominal radiographs are correlated with abdomi nal CT dated 05/23/2022. There is a nonobstructed abdominal bowel gas pattern. Moderate fecal retention is seen throughout the colon. A common bile duct stent is noted in the right upper quadrant. No evidence of intraperitoneal free air is seen on these supine images. There are no abnormal abdominal calcifications. The bony structures appear intact. IMPRESSION: 1. No acute abnormality is identified. 2. A common bile duct stent is in place. Electronically signed by: Fransico Borges M.D. 08/01/2022 7:47 PM Gallbladder Ultrasound 08/01/22 19:01 Exam(s): US GALLBLADDER EXAM: US Abdomen Limited, Gallbladder CLINICAL HISTORY: Reason for exam: upper pain. TECHNIQUE: Real-time ultrasound of the right upper quadrant with image documentation. COMPARISON: 07/30/22 FINDINGS: Liver: Hepatomegaly measuring 17.7 cm with increased parenchymal echogenicity. No focal lesion. Patent, normally directed portal vein. Gallbladder: Contracted gallbladder with numerous stones. Normal wall thickness. Negative Yun sign. Common bile duct: Common bile duct stent. Common bile duct 6 cm. No visible choledocholithiasis. Pancreas: Pancreas is unremarkable as visualized. Right kidney: Right kidney 11.2 cm. No beba hydronephrosis. IMPRESSION: 1. Common bile duct stent in place. No biliary dilatation. No visible choledocholithiasis 2. Cholelithiasis without evidence of acute cholecystitis. Electronically signed by: Babak Espinoza M.D. 08/01/22 21:40 PM Discharge Plan Visit Data Chief Complaint: Abdominal Pain Stated Complaint: LEFT ABDOMINAL PAIN, VOMTING ED Provider: Pedro Pablo Davis Discharge Problem: Right upper quadrant abdominal pain, Nausea & vomiting Patient Disposition: Being Evaluated by Surgeon Forms Stand Alone Forms: [facility] Prescriptions Prescriptions: No Action sertraline 50 mg tablet 50 mg PO DAILY Qty: 90 1RF lorazepam 0.5 mg tablet 0.5 mg PO DAILY PRN (Reason: uncontrolled anxiety / panic) Qty: 30 0RF Probiotic 10 billion cell Capsule 10,000 mmu cells PO DAILY amoxicillin-pot clavulanate 875-125 mg tablet 1 tab PO BID Qty: 20 0RF ondansetron 4 mg tablet,disintegrating 4 mg PO Q6H PRN (Reason: nausea and vomiting) Qty: 20 0RF Referrals Referrals: Katerine Kelsey MD [Primary Care Provider] -
[2022-08-01 19:07] LABS: Appearance Urine Clear (Clear); Bacteria Urine Automated Negative (Negative); Bilirubin Urine Negative (Negative); Blood Urine 2+ (Negative); Color Urine Dark Yellow; Epithelial Cell Urine Auto >30 /lpf (0-5); Glucose Urine UA Negative (Negative); Ketones Urine Trace (Negative); Leukocyte Esterase Urine Negative (Negative); Nitrite Urine Negative (Negative); Protein Urine Trace (Negative); RBC Urine Automated >30 /hpf (0-4); Specific Gravity Urine 1.039 (1.000-1.030); Urobilinogen Urine Negative (Negative); pH Urine 5.5 (4.5-7.5)
--- NOTE | 2022-08-01 19:46 | XRay Report ---
SINGLE VIEW CHEST CLINICAL HISTORY: Vomiting. FINDINGS: An AP, portable, upright chest radiograph is compared to chest x-ray and chest CT dated 05/10. The cardiomediastinal silhouette is unremarkable. The lungs and pleural spaces are clear. No pneumothorax is seen. The bony thorax is grossly intact. IMPRESSION: No active disease in the chest. ACT 112: Negative or not required by law. Electronically signed by: Fransico Borges M.D. 08/01/2022 7:45 PM
--- NOTE | 2022-08-01 19:49 | XRay Report ---
KUB CLINICAL HISTORY: Vomiting. FINDINGS: 2 AP portable supine abdominal radiographs are correlated with abdominal CT dated 05/23/2022 . There is a nonobstructed abdominal bowel gas pattern. Moderate fecal retention is seen throughout t he colon. A common bile duct stent is noted in the right upper quadrant. No evidence of intraperitone al free air is seen on these supine images. There are no abnormal abdominal calcifications. The bony structures appear intact. IMPRESSION: 1. No acute abnormality is identified. 2. A common bile duct stent is in place. Electronically signed by: Fransico Borges M.D. 08/01/2022 7:47 PM
--- NOTE | 2022-08-01 21:41 | Ultrasound Report ---
Exam(s): US GALLBLADDER EXAM: US Abdomen Limited, Gallbladder CLINICAL HISTORY: Reason for exam: upper pain. TECHNIQUE: Real-time ultrasound of the right upper quadrant with image documentation. COMPARISON: 07/30/22 FINDINGS: Liver: Hepatomegaly measuring 17.7 cm with increased parenchymal echogenicity. No focal lesion. Patent, normally directed portal vein. Gallbladder: Contracted gallbladder with numerous stones. Normal wall thickness. Negative Yun sign. Common bile duct: Common bile duct stent. Common bile duct 6 cm. No visible choledocholithiasis. Pancreas: Pancreas is unremarkable as visualized. Right kidney: Right kidney 11.2 cm. No beba hydronephrosis. IMPRESSION: 1. Common bile duct stent in place. No biliary dilatation. No visible choledocholithiasis 2. Cholelithiasis without evidence of acute cholecystitis. Electronically signed by: Babak Espinoza M.D. 08/01/22 21:40 PM
[2022-08-01] MEDS ORDERED: cefOXitin 2,000 MG/60 ML BAG IV STA (22:18)
[2022-08-01] MEDS ORDERED: MoRPHine SULFATE 4 MG/ML 1 ML CARP\\VIAL IV PRN (22:22)
[2022-08-01] MEDS ORDERED: ONDANSETRON INJ 2 MG/ML 2 ML VIAL IV PRN (22:22)
[2022-08-01] MEDS ORDERED: ACETAMINOPHEN 1,000 MG/100 ML VIAL IV PRN (22:22)
--- NOTE | 2022-08-01 22:22 | History & Physical Report ---
Date of Service August 01, 2022 Assessment & Plan (1) Biliary colic: Plan: Due to the patient's recent admission with choledocholithiasis and known gallstones along with her clinical presentation we will admit the patient to the hospital proceed as follows: We will provide analgesics We will provide antiemetics We will hydrate with IV fluids We will follow serial labs Due to her recent ERCP and biliary stent we will maintain her on antibiotics. The treating emergency room physician has ordered cefoxitin which we will continue As the patient feels she is unable to tolerate the pain at home and feels she will not do well we will tentatively plan on performing a cholecystectomy. We will tenably plan on this procedure with Dr. Sidhu. Timing will be dependent on availability of operating room this weekend. I have briefly outlined the risks, benefits, alternatives and expected postop recovery with the patient and she wishes to proceed. Additional recommendations be forthcoming based on her clinical course as it unfolds along with her operative findings and postoperative recovery We will use SCDs for DVT prevention, no chemical means due to planned surgery She will be a level 1 full code History of Present Illness Chief Complaint: Biliary colic Primary Care Provider: Katerine Kelsey MD This is a 26-year-old female who was recently hospitalized at [facility] secondary to choledocholithiasis. The patient underwent an ERCP on 07/31/2022 and choledocholithiasis was found. She did have a biliary stent put in place. She was seen by Dr. Herminio Moore of [facility] surgery and plans were in place for patient to have an outpatient cholecystectomy. She was discharged home earlier today. The patient represented to the emergency department because upon return home the patient said that she drank some water and ate some saltine crackers and immediately had nausea and vomiting along with right upper quadrant and epigastric abdominal pain. She says she was unable to tolerate this so she presented to the emergency department. She denies any fevers, shakes, or chills. She denies any modifying factors to her pain. She notes that she has never had any abdominal surgery in the past. Upon presentation to the emergency department the patient did have labs and imaging which I independent reviewed. A chest x-ray showed no evidence of pneumonia. A KUB showed no evidence of bowel obstruction or intraperitoneal free air. The patient did have a gallbladder ultrasound that showed a common bile duct stent was in place with no biliary ductal dilatation. No visible choledocholithiasis was noted. Gallstones were present but there is no evidence of cholecystitis. Labs include a CBC her white blood cell count, hemoglobin, hematocrit, and platelet count were normal. Chemistry profile showed sodium, potassium, BUN, and creatinine were normal. The patient's total bilirubin was not elevated. There is a slight elevation of the AST and ALT at 40 and 85 respectively. These values are stable from what was noted during her previous hospitalization. Her alkaline phosphatase is not elevated. Her lipase is normal. A test is negative. And a urinalysis not indicative of infection. At the time of my interview she was resting comfortably bed in no distress Allergies Allergy/AdvReac Type Severity Reaction Status Date / Time latex Allergy Intermediate RASH Verified 07/09/22 10:06 Home Medications Medication Instructions Recorded Confirmed Type Lactobacillus acidophilus 10 10,000 mmu cells PO DAILY 03/18/22 07/30/22 History billion cell capsule (Probiotic) lorazepam 0.5 mg tablet 0.5 mg PO DAILY PRN uncontrolled 07/09/22 07/30/22 Rx anxiety / panic #30 tabs sertraline 50 mg tablet 50 mg PO DAILY #90 tabs 07/09/22 07/30/22 Rx amoxicillin 875 mg-potassium 1 tab PO BID #20 tabs 08/01/22 Rx clavulanate 125 mg tablet ondansetron 4 mg disintegrating 4 mg PO Q6H PRN nausea and 08/01/22 Rx tablet vomiting #20 tabs Past Med/Surg History Medical History Anxiety AVNRT (AV nimesh re-entry tachycardia) Migraine headache Mitral valve prolapse stable-unchanged since childhood. Pericarditis Surgical History H/O cardiac radiofrequency ablation No pertinent past surgical history Status post lateral meniscus repair Family History Grandmother (Paternal) Breast cancer Ovarian cancer Diabetes Aunt Breast cancer Mother Colorectal cancer Von Willebrand disease Father Prostate cancer Grandfather (Paternal) Diabetes Heart disease Grandfather (Maternal) Heart disease Denies family history of Myocardial infarction Lung cancer Stroke Social History Smoking Status: Never smoker Second Hand Exposure: No; Hx Alcohol Use: No Hx Substance Use: No Preferred Language: Albanian Communication Ability: Effective Visual Impairment: No Limitations Hearing Ability: Normal Sewer And Inspector Required: No Beliefs That Will Affect Care: None marital status: marital status details: Daniel(25) [phone] Current Living Situation: Spouse Current Living Situation Comment: lives with and cat current occupational status: employed current occupation: [employer] Feels Safe at Home: Yes Childhood Exposure to Second-Hand Smoke: No Dental Care, Regularly: Yes Seatbelt Use: always Sunscreen Use: Yes Assistive Devices: None Review of Systems Constitutional: no fever and no chills Eyes: + corrective lenses Ear, Nose, Mouth, Throat: no ear pain Respiratory: no cough and no dyspnea Cardiovascular: no chest pain Gastrointestinal: as per Subjective / HPI Genitourinary: no dysuria Musculoskeletal: no back pain Integumentary: no rash Neurologic: no localized weakness Physical Exam Constitutional: WD/WN, vitals as above Eyes: + anicteric sclerae ENMT: Ears: no hearing impairment and no external ear abnormality Sublingual jaundice is Neck: trachea midline Respiratory: normal respiratory effort, lungs clear to auscultation Cardiovascular: Rate/Rhythm: regular rate and regular rhythm Gastrointestinal (Abdomen): Abdomen is soft, nonrigid, nondistended. There is no rebound tenderness or guarding. There is pain with palpation in the right upper quadrant. Musculoskeletal: No calf tenderness Skin: no rashes Neurologic: moves all extremities Psychiatric: A+Ox3, euthymic affect Results & Data Results & Data Vital Signs (Past 12 Hours) Vital Signs Temp Pulse Pulse Resp BP BP Pulse Ox 08/01/22 21:43 60 20 115/75 98 08/01/22 18:43 63 18 130/67 97 08/01/22 16:13 36.3 C L 80 16 129/77 97 O2 Del Method 08/01/22 21:43 Room Air 08/01/22 18:43 Room Air 08/01/22 16:13 Supervising Physician Co-Signing Physician Notes Patient discussed with Cuate VALDIVIA, labs and imaging reviewed, agree with above. Recent admission with cholelithiasis and choledocholithiasis status post ERCP with stent placement. Was discharged earlier this morning but after eating crackers had intractable right upper quadrant pain. Repeat ultrasound with cholelithiasis, patent stent, no evidence of cholecystitis. Labs unremarkable except for minimal elevation in her LFTs. Due to recurrence of symptoms and intractable biliary colic, will plan for admission and laparoscopic cholecystectomy on Wednesday morning. PG Care Time/CCT Total # of Minutes Spent Total Time Spent with Patient: Total time spent is greater than 50% in coordination of care (as documented) at patient's floor/unit and/or counseling patient: Coding Level of Care Code 20014 INT INP/OBS CARE MIN Diagnoses Biliary colic K80.50
[2022-08-01] MEDS ORDERED: LACTATED RINGER'S 1,000 ML IV SCH (22:30)
--- NOTE | 2022-08-02 04:50 | Surgery Progress Note ---
Date of Service August 02, 2022 Assessment & Plan (1) Biliary colic: Plan: Due to the patient's recent admission with choledocholithiasis and known gallstones along with her clinical presentation she has been readmitted to the hospital proceeding as follows: analgesics to be provided antiemetics to be provided Continue to hydrate with IV fluids Check a.m. labs when available Due to her recent ERCP and biliary stent we will maintain her on antibiotics. She is receiving cefoxitin. Tentative plans are in place for cholecystectomy with Dr. Sidhu on 08/02/2022 Additional recommendations be forthcoming based on her clinical course as it unfolds along with her operative findings and postoperative recovery We will use SCDs for DVT prevention, no chemical means due to planned surgery She will be a level 1 full code Admission and Anticipated Discharge Date Admission Date: August 01, 2022 Supervising Physician Co-Signing Physician Notes Patient seen and examined, agree with above. Cholelithiasis with recent history of choledocholithiasis and ERCP with stent placement on Wednesday, discharged yest erday with recurrence of pain after eating crackers. On exam she is afebrile with stable vital signs, abdomen soft, minimally tender in the right upper quadrant. Labs unremarkable. Ultrasound showed cholelithiasis without cholecystitis and no obstruction of the stent. Plan for laparoscopic cholecystectomy with possible cholangiogram Risk discussed to include but not limited to bleeding, infection, conversion to open, damage to surrounding structures including bile duct, retained stone, bile leak, need for future more extensive surgeries, and the risk of anesthesia Potential discharge this afternoon Subjective Patient is resting comfortably in bed. She does note she has some intermittent right upper quadrant abdominal pain but not as severe as what brought her to the emergency department. No nausea or vomiting has been noted. No fevers, shakes, or chills reported. Physical Exam Gastrointestinal (Abdomen): Abdomen is soft and nondistended. There is no rebound tenderness or guarding. There is some pain with palpation in the right upper quadrant. Results & Data Vital Signs (Past 12 Hours) Vital Signs Temp Pulse Resp BP Pulse Ox O2 Del Method 08/01/22 23:40 36.6 C 52 L 16 110/71 96 Room Air 08/01/22 22:46 54 L 20 142/70 H 97 Room Air 08/01/22 21:43 60 20 115/75 98 Room Air 08/01/22 18:43 63 18 130/67 97 Room Air PG Care Time/CCT Total # of Minutes Spent Total Time Spent with Patient: Total time spent is greater than 50% in coordination of care (as documented) at patient's floor/unit and/or counseling patient: Coding Level of Care Code 27855 SUB INP/OBS CARE 06/03MIN Diagnoses Biliary colic K80.50
[2022-08-02] MEDS: cefOXitin 2,000 MG in DEXTROSE 5% 50 ML IV SCH ×2 (05:14→11:22)
[2022-08-02 06:10] LABS: Basophils # (auto) 0.03 K/uL (0-0.2); Basophils % (auto) 0.5 %; Eosinophils # (auto) 0.09 K/uL (0-0.50); Eosinophils % (auto) 1.4 %; Hematocrit (blood only) 34.6 % (37.0-47.0); Hemoglobin 11.6 g/dl (12.0-16.0); Immature Granulocytes # (auto) 0.02 K/uL (0.01-0.20); Immature Granulocytes % (auto) 0.3 %; Lymphocytes # (auto) 2.54 K/uL (1.2-3.4); Lymphocytes % (auto) 40.1 %; Mean Corpuscular Hemoglobin 28.4 pg (25.0-34.0); Mean Corpuscular Hgb Conc 33.5 g/dL (32.0-36.0); Mean Corpuscular Volume 84.8 fL (80.0-100.0); Mean Platelet Volume 10.1 fL (9.4-12.4); Monocytes # (auto) 0.36 K/uL (0.11-0.59); Monocytes % (auto) 5.7 %; Neutrophils # (auto) 3.29 K/uL (1.40-6.50); Platelet Count 205 K/uL (130-400); RDW Coefficient of Variation 12.7 % (11.5-14.5); RDW Standard Deviation 39.1 fL (36.4-46.3); Red Blood Count 4.08 M/uL (4.20-5.40); White Blood Count 6.33 K/ul (4.8-10.8)
[2022-08-02 06:32] LABS: Albumin Globulin Ratio 1.3 (0.9-2); Albumin Level 3.5 gm/dl (3.4-5.0); BUN Creatinine Ratio 24.7 (10-20); Bilirubin,Total 0.6 mg/dl (0.2-1.0); Calcium 8.3 mg/dl (8.6-10.3); Creatinine Clr Calc Pharmacy 133.1 ml/min; Est GFR (African American) 132.7 ml/min; Est GFR (Non-African American) 114.5 ml/min; Globulin 2.7 gm/dl (2.5-4.0); Potassium 3.7 mmol/L (3.5-5.1); Total Protein 6.2 gm/dl (6.0-8.3)
[2022-08-02] MEDS ORDERED: LIDOCAINE 2% MPF LOCAL 5 ML VIAL ONE (06:39)
[2022-08-02] MEDS ORDERED: MIDAZOLAM HCL 1 MG/ML 2ML VIAL ONE (06:39)
[2022-08-02] MEDS ORDERED: fentaNYL citrate PF 100 MCG/2 ML VIAL ONE (06:39)
[2022-08-02] MEDS ORDERED: PROPOFOL IV EMULSION 10 MG/ML 20 ML VIAL IV ONE (06:40)
[2022-08-02] MEDS ORDERED: DEXAMETHASONE SOD INJ 4 MG/ML VIAL ONE (06:40)
[2022-08-02] MEDS ORDERED: ROCURONIUM BROMIDE 10 MG/ML 5 ML VIAL IV ONE (06:40)
[2022-08-02] MEDS ORDERED: ONDANSETRON INJ 2 MG/ML 2 ML VIAL ONE (06:40)
--- NOTE | 2022-08-02 07:26 | Anesthesiology Consultation ---
Date of Service August 02, 2022 Assessment & Plan Chart Review Chart Review: Acceptable Risk for Surgery Consults Requested none ASA ASA2 Proposed Anesthesia Anesthesia Type: General Risk / Benefits Reviewed With: PT / POA / Parent / Guardian, Accepts Plan and Informed Consent Obtained History Surgery Operation Date: 08/02/22 07:30 Proposed Procedures p Laparoscopic Cholecystectomy, possible open - Jeb Sidhu DO, FACS Height/Weight Height: 5 ft 7 in Weight: 86.5 kg Allergies Allergy/AdvReac Type Severity Reaction Status Date / Time latex Allergy Intermediate RASH Verified 07/09/22 10:06 Medications Home Medications Medication Instructions Recorded Confirmed Last Taken Lactobacillus acidophilus 10 10,000 mmu cells PO DAILY 03/18/22 07/30/22 03/17/22 09:00 billion cell capsule (Probiotic) lorazepam 0.5 mg tablet 0.5 mg PO DAILY PRN uncontrolled 07/09/22 07/30/22 Unknown anxiety / panic #30 tabs sertraline 50 mg tablet 50 mg PO DAILY #90 tabs 07/09/22 07/30/22 Unknown amoxicillin 875 mg-potassium 1 tab PO BID #20 tabs 08/01/22 Unknown clavulanate 125 mg tablet ondansetron 4 mg disintegrating 4 mg PO Q6H PRN nausea and 08/01/22 Unknown tablet vomiting #20 tabs Active Medications Generic Name Dose Route Start Last Admin Trade Name Freq PRN Reason Stop Dose Admin Lactated Ringer's 1,000 mls @ 75 mls/hr 08/01/22 22:30 08/01/22 22:37 Lr IV 08/31/22 22:29 75 mls/hr .[id number] FREDIS Administration Cefoxitin Sodium 2,000 mg/ 60 mls @ 100 mls/hr 08/02/22 04:00 08/02/22 06:14 Dextrose IV 08/12/22 03:59 Infused Q6H FREDIS Infusion Morphine Sulfate 3 mg 08/01/22 22:22 08/02/22 00:11 Morphine Sulfate 4 Mg/Ml 1 Ml Carp\Vial IV 08/15/22 22:21 3 mg Q3H PRN Administration Pain NPO Date Last Intake of Fluids: 08/01/22 Time Last Intake of Fluids: 20:00 Past Medical History Medical History Anxiety AVNRT (AV nimesh re-entry tachycardia) Migraine headache Mitral valve prolapse stable-unchanged since childhood. Pericarditis Exercise / Class Metabolic Activity II 4-5 Yardwork/Stairs/Walk up hill Past Family History Family History Grandmother (Paternal) Breast cancer Ovarian cancer Diabetes Aunt Breast cancer Mother Colorectal cancer Von Willebrand disease Father Prostate cancer Grandfather (Paternal) Diabetes Heart disease Grandfather (Maternal) Heart disease Denies family history of Myocardial infarction Lung cancer Stroke Past Surgical History Surgical History H/O cardiac radiofrequency ablation No pertinent past surgical history Status post lateral meniscus repair Past Anesthesia History No Hx of Anesthesia Complications and No Family Hx of Anesthesia Complications History of PONV No Hx of PONV and No Hx of Motion Sickness Social History Smoking Status: Never smoker Hx Alcohol Use: No Alcohol type: beer Hx Substance Use: No substance use type: does not use Physical Exam Vital Signs Last Vital Signs Temp 97.9 F 08/01/22 23:40 Pulse 52 L 08/01/22 23:40 Resp 16 08/01/22 23:40 BP 110/71 08/01/22 23:40 Pulse Ox 96 08/01/22 23:40 O2 Del Method Room Air 08/01/22 23:40 ENMT Mouth: no dentition abnormality Thyromental Distance: > or= 3.5 Finger Breadths Mallampati Class: II Neck normal visual inspection Respiratory normal respiratory effort Auscultation: lungs clear to auscultation bilaterally Cardiovascular Rate/Rhythm: regular rate and regular rhythm Testing Laboratory Results 08/02/22 05:49 08/02/22 05:49 Urine Color Dark Yellow 08/01/22 18:47 Urine Appearance Clear (Clear) 08/01/22 18:47 Urine pH 5.5 (4.5-7.5) 08/01/22 18:47 Ur Specific [place] 1.039 (1.000-1.030) H 08/01/22 18:47 Urine Protein Trace (Negative) H 08/01/22 18:47 Urine Glucose (UA) Negative (Negative) 08/01/22 18:47 Urine Ketones Trace (Negative) H 08/01/22 18:47 Urine Nitrite Negative (Negative) 08/01/22 18:47 Ur Leukocyte Esterase Negative (Negative) 08/01/22 18:47 Urine WBC (Auto) 1-5 /hpf (0-5) 08/01/22 18:47 Urine RBC (Auto) >30 /hpf (0-4) H 08/01/22 18:47 U Hyaline Cast (Auto) 1-5 /lpf (0-5) 08/01/22 18:47 U Epithel Cells (Auto) >30 /lpf (0-5) H 08/01/22 18:47 Urine Bacteria (Auto) Negative (Negative) 08/01/22 18:47
[2022-08-02] MEDS ORDERED: FAMOTIDINE/PF 20 MG/2 ML VIAL IV ONE (07:28)
[2022-08-02] MEDS ORDERED: ACETAMINOPHEN 1000 MG/100 ML IV IV ONE (07:28)
[2022-08-02] MEDS ORDERED: BUPIVACAINE 0.5 % 5 MG/1 ML MPF 30ML VIAL ONE (07:43)
--- NOTE | 2022-08-02 07:49 | History & Physical Bridge Note ---
Date of Service August 02, 2022 History & Physical Bridge Note I have examined the patient, reviewed the History & Physical and in the interval since the performance of the History & Physical I have noted the following changes of clinical significance: no changes noted
[2022-08-02] MEDS ORDERED: METOCLOPRAMIDE HCL INJ 5 MG/ML 2 ML VIAL ONE (08:13)
[2022-08-02] MEDS ORDERED: fentaNYL citrate PF 100 MCG/2 ML VIAL IV PRN (08:14)
[2022-08-02] MEDS ORDERED: ATROPINE SULFATE 0.1 MG/ML 10ML SYR IV PRN (08:14)
[2022-08-02] MEDS ORDERED: GLYCOPYRROLATE 0.2 MG/ML VIAL ONE ×2 (08:14→08:29)
[2022-08-02] MEDS ORDERED: ONDANSETRON INJ 2 MG/ML 2 ML VIAL IV PRN (08:14)
[2022-08-02] MEDS ORDERED: ePHEDrine sulfate 50 MG/ML AMP IV PRN (08:14)
[2022-08-02] MEDS ORDERED: NEOSTIGMINE METHYLSULFATE 1 MG/ML 10ML VIAL ONE (08:14)
[2022-08-02] MEDS ORDERED: KETOROLAC 30 MG/ML VIAL ONE (08:29)
--- NOTE | 2022-08-02 08:35 | Operative Report ---
PG Post Operative Report Pre & Post Diagnosis Operation Date: 08/02/22 07:30 Pre-Op Diagnosis: Cholecystitis Post-Op Diagnosis: Cholecystitis I identified the patient and participated in the time-out.: Yes Procedure Operation Date: 08/02/22 07:30 Actual Procedures p Laparoscopic Cholecystectomy - Jeb Sidhu DO, FACS Surgeon Jeb Sidhu DO, FACS Zinc Miner Blasting None Estimated Blood Loss 5 Findings Consistent with Post-Op Diagnosis Mild to moderate acute cholecystitis. Critical view of safety obtained, cystic duct and artery doubly clipped and divided. Good hemostasis. Specimens Gallbladder Anesthesia Type General Complications none Disposition Accompanied Patient To Recovery: No Disposition: Recovery Room Indications 26-year-old female with history of cholelithiasis and choledocholithiasis status post ERCP with stent placement, after discharge yesterday she developed recurrence of her right upper quadrant pain. She was admitted overnight for intractable biliary colic and likely acute cholecystitis. Plan for laparoscopic cholecystectomy with possible cholangiogram. The risks of the procedure were discussed, all questions were answered, and the patient agreed to proceed with surgery as planned. Description of Procedure The patient was properly identified, consented, and taken to the operating room where she was placed in the supine position. General endotracheal anesthesia was induced. SCDs and a safety belt were placed. Preoperative antibiotics were administered. The patient's abdomen was prepped and draped in the standard sterile fashion. A surgical timeout was performed and all parties were in agreement that this was the correct patient and procedure to be performed and we continued as planned. An incision was made superior and to the left of the umbilicus overlying the rectus muscle and the Veress needle was inserted. Saline drop test confirmed entry into the peritoneum. The abdomen was insufflated with carbon dioxide which the patient tolerated without incident. The abdomen was then entered using the Optiview technique and a 5 mm trocar. The laparoscope was inserted and no damage from initial trocar or Veress needle placement was noted, no gross abnormalities were noted within the 4 quadrants of the abdomen. An 11 mm port was placed in the subxiphoid position and two 5 mm ports were then placed in the right subcostal position. The patient was placed in reverse Trendelenburg position and rotated towards the left. The gallbladder was moderately and acutely inflamed. The dome of the gallbladder was retracted towards the left upper quadrant and the infundibulum was retracted toward the right lower quadrant revealing Calot's triangle. Peritoneal attachments were taken down with electrocautery and blunt dissection. The cystic duct and artery were circumferentially dissected. A window of safety was obtained showing the cystic duct entering the gallbladder with no aberrant structures noted. The cystic duct and artery were doubly clipped and divided. The gallbladder was then lifted off the gallbladder fossa with electrocautery. The gallbladder was placed in an Endo Catch bag and removed through the subxiphoid port site. The right upper quadrant was irrigated and hemostasis was found to be good. 5 mm trochars were removed under direct visualization and the abdomen was allowed to collapse. The subxiphoid port site fascia was closed with 0 Vicryl suture using the Junito-Sangeetha closure device.. The wound was irrigated, and the skin of all ports was closed with 4-0 Monocryl subcuticular sutures. Dermabond was placed over the wounds. The patient was extubated in the operating room and taken to the PACU where she recovered without apparent incident. All sponge, instrument and needle counts were correct at the conclusion of the procedure. The patient tolerated the procedure well. I attest to the content of the Intraoperative Record and any orders documented therein. Any exceptions are noted below.
[2022-08-02] MEDS ORDERED: SERTRALINE HCL 50 MG TABLET PO SCH (09:00)
--- NOTE | 2022-08-02 09:21 | Anesthesiology Progress Note ---
Date of Service August 02, 2022 Anesthesia Post Procedure Vital Signs Vital Signs: Temp Pulse Pulse Pulse Resp BP BP 08/02/22 09:15 56 L 16 113/67 08/02/22 09:05 97.2 F L 62 20 114/66 08/02/22 08:55 56 L 14 117/61 08/02/22 08:45 97.0 F L 59 L 16 114/72 08/02/22 07:35 97.5 F L 97 H 16 97/64 L 08/01/22 23:40 97.9 F 52 L 16 110/71 08/01/22 22:46 54 L 20 142/70 H 08/01/22 21:43 60 20 115/75 08/01/22 18:43 63 18 130/67 08/01/22 16:13 97.3 F L 80 16 129/77 Pulse Ox O2 Del Method O2 Flow Rate 08/02/22 09:15 96 Room Air 08/02/22 09:05 99 Room Air 08/02/22 08:55 95 Oxymask 6 08/02/22 08:45 100 Oxymask 9 08/02/22 07:35 98 Room Air 08/01/22 23:40 96 Room Air 08/01/22 22:46 97 Room Air 08/01/22 21:43 98 Room Air 08/01/22 18:43 97 Room Air 08/01/22 16:13 97 Pain Intensity Right Abdomen: Pain Intensity: 2 Transfer of Care Handoff Completed per policy Notes Mental Status: alert / awake / arousable and participated in evaluation Patient Amnestic to Procedure: Yes Nausea / Vomiting: adequately controlled Pain: adequately controlled Airway Patency, RR, SpO2: stable & adequate BP & HR: stable & adequate Hydration State: stable & adequate Anesthetic Complications: no major complications apparent and Pt Satisfied with anesthetic care
--- NOTE | 2022-08-03 20:07 | Discharge Summary ---
Date of Service August 03, 2022 Admission HPI Per Admitting Provider This is a 26-year-old female who was recently hospitalized at [facility] secondary to choledocholithiasis. The patient underwent an ERCP on 07/31/2022 and choledocholithiasis was found. She did have a biliary stent put in place. She was seen by Dr. Herminio Moore of [facility] surgery and plans were in place for patient to have an outpatient cholecystectomy. She was discharged home earlier today. The patient represented to the emergency department because upon return home the patient said that she drank some water and ate some saltine crackers and immediately had nausea and vomiting along with right upper quadrant and epigastric abdominal pain. She says she was unable to tolerate this so she presented to the emergency department. She denies any fevers, shakes, or chills. She denies any modifying factors to her pain. She notes that she has never had any abdominal surgery in the past. Upon presentation to the emergency department the patient did have labs and imaging which I independent reviewed. A chest x-ray showed no evidence of pneumonia. A KUB showed no evidence of bowel obstruction or intraperitoneal free air. The patient did have a gallbladder ultrasound that showed a common bile duct stent was in place with no biliary ductal dilatation. No visible choledocholithiasis was noted. Gallstones were present but there is no evidence of cholecystitis. Labs include a CBC her white blood cell count, hemoglobin, hematocrit, and platelet count were normal. Chemistry profile showed sodium, potassium, BUN, and creatinine were normal. The patient's total bilirubin was not elevated. There is a slight elevation of the AST and ALT at 40 and 85 respectively. These values are stable from what was noted during her previous hospitalization. Her alkaline phosphatase is not elevated. Her lipase is normal. A test is negative. And a urinalysis not indicative of infection. At the time of my interview she was resting comfortably bed in no distress Discharge Data Consultations 08/01/22 22:33 Consult General Surgery Stat Procedures Performed Operation Date: 08/02/22 07:30 Actual Procedures p Laparoscopic Cholecystectomy - Jeb Sidhu DO, FACS Hospital Course (1) Biliary colic: Date of admission was 08/01/2022 Date of discharge is 08/02/2022 This is a 26-year-old female who was admitted to [facility] on 08/01/2022. The patient was admitted to [facility] 2 days prior to this and was seen for choledocholithiasis as well as cholelithiasis. She underwent an ERCP with stent placement and was discharged home with plans to have an outpatient cholecystectomy. She presented to [facility] on 08/01/2022 due to continued abdominal pain. She did not have cholecystitis but it was felt that she would benefit from cholecystectomy due to her ongoing pain. The day following admission she underwent a laparoscopic cholecystectomy with Dr. Sidhu and was able to be discharged home the same day after an uneventful hospital course. She was instructed on appropriate wound care, diet, and activity and instructed to follow-up with Dr. Sidhu in 1 to 2 weeks. Coding Level of Care Code 45282 INP/OBS DISCH >30 MIN Diagnoses Biliary colic K80.50
--- NOTE | 2022-08-07 07:26 | Coding Query ---
PATHOLOGY To promote full compliance with coding requirements relating to patient care, physician participation is requested in all cases of nuclear pharmacist uncertainty. Please assist us with the question(s) below: Please review the Pathology report and please document any relevant diagnosis(es) below: Diagnosis(es): chronic cholecystitis Thank you Kelsie HAMEED
== END 2022-08-02 14:56 | disposition home or self-care (01) | DRG 419 ==
LOC: 3W 16:12 → ED 16:12 → OBSVTOIN 22:26 → 3W 23:48

== ENCOUNTER 2024-03-10 12:52 | Inpatient (IN) ==
[2024-03-10] MEDS ORDERED: LIDOCAINE 1% LOCAL 20 ML VIAL INFIL PRN (15:43)
--- NOTE | 2024-03-10 15:51 | History & Physical Report ---
Date of Service March 10, 2024 Assessment & Plan (1) Encounter for supervision of normal in multigravida: Plan: Patrick is a 28-year-old G2, P1 currently at 38 weeks 5 days gestational age presents in labor. 1. Fetus: Category 1 tracing 2. Labor progressing spontaneously. Will continue to monitor and AROM when appropriate 3. GBS negative 4. Vitals within normal limits (2) Normal labor: History of Present Illness Primary Care Provider: Katerine Kelsey MD Patrick is a 28-year-old G2, P1 currently at 38 weeks 5 days gestational age presents in labor following membrane stripping in clinic at 38 weeks 5 days gestational age. Denies leakage of fluid or vaginal bleeding and reported good movement. complicated by: Patient with SVT/MVP-hx cardiac ablation-[facility] Cardiology FMHX [place], pt tested neg Hepatitis B Non Immune OB Labs: Blood Type AB Positive 09/05/23 Antibody Screen NEGATIVE 08/09/23 Hgb 11.5 g/dl (12.0-16.0) L 02/23/24 Hct 35.4 % (37.0-47.0) L 02/23/24 MCV 80.6 fL (80.0-100.0) 02/23/24 Plt Count 236 K/uL (130-400) 02/23/24 Rubella IgG Antibody Immune (Immune) 08/09/23 RPR Nonreactive (Nonreactive) 08/09/23 Treponema pallidum Ab Negative (Negative) 12/28/23 Hep Bs Antigen NON-REACTIVE (NON-REACTIVE) 08/09/23 Hepatitis C Ab (EIA) NON-REACTIVE (NON-REACTIVE) 08/09/23 HIV (1&2) Ag & Ab Conf NON-REACTIVE (NON-REACTIVE) 08/09/23 Glucose 1 Hr 50 gm 130 mg/dl (70-130) 12/28/23 OB Optional Labs: Chlamydia trachomatis RNA Not Detected (NotDetected) 08/09/23 Neisseria gonorrhoeae RNA Not Detected (NotDetected) 08/09/23 Thyroid Stimulating Hormone (TSH) 1.109 uIu/ml (0.300-4.500) 07/15/23 Labs Reviewed: declined cf/sma/cfdna - sln Allergies Allergy/AdvReac Type Severity Reaction Status Date / Time latex Allergy Intermediate RASH Verified 03/10/24 08:32 Home Medications Medication Instructions Recorded Confirmed Type Lactobacillus acidophilus 10 10,000 mmu cells PO DAILY 03/18/22 03/10/24 History billion cell capsule (Probiotic) ferrous sulfate 1 tab PO DIRECTED 08/02/23 03/10/24 History mecobalamin (vitamin B12) 1 tab PO DIRECTED 08/02/23 03/10/24 History 21-iron fu-folic acid 1 tab PO DIRECTED 08/02/23 03/10/24 History [ Complete] ondansetron 4 mg disintegrating 4 mg PO Q6H PRN nausea and 10/05/23 03/10/24 Rx tablet vomiting #12 tabs Patient History Medical History Varicella vaccination Gallstones Mitral valve prolapse stable-unchanged since childhood. Pericarditis AVNRT (AV nimesh re-entry tachycardia) Surgical History Hx laparoscopic cholecystectomy (08/02/22) Laparoscopic Cholecystectomy - Jeb Sidhu DO, FACS H/O cardiac radiofrequency ablation Status post lateral meniscus repair Family History Grandmother (Paternal) Breast cancer Ovarian cancer Diabetes Aunt Breast cancer Mother Colorectal cancer Von Willebrand disease Father Prostate cancer Grandfather (Paternal) Diabetes Heart disease Grandfather (Maternal) Heart disease Family/Other Down syndrome cousin Denies family history of Myocardial infarction Lung cancer Stroke Social History Smoking Status: Never smoker Second Hand Exposure: No; Do You Dip or Chew Tobacco: No; Hx Alcohol Use: No Hx Substance Use: No Preferred Language: Slovenian Communication Ability: Effective Visual Impairment: No Limitations Hearing Ability: Normal Checkerer Hand Required: No Beliefs That Will Affect Care: None marital status: marital status details: Daniel Callejas(26) [phone] Current Living Situation: Spouse and Family Current Living Situation Comment: lives with , child and cat-spouse changing litter current occupational status: employed 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[employer] Other Information That Helps Us Care for You: No Feels Safe at Home: Yes Childhood Exposure to Second-Hand Smoke: No Diet: regular Dental Care, Regularly: Yes Seatbelt Use: always Sunscreen Use: Yes Assistive Devices: None and Glasses Physical Exam Genitourinary: Manual OB Exam: + cervical dilation (4.5), + cervical effacement 80% and + station 0 OB Exam Monitor Tracing: + external FHT monitor used, + external uterine monitor used, + category I and + normal FHT variability Results & Data Vital Signs (Past 12 Hours) Vital Signs Temp Pulse Resp BP 03/10/24 13:07 36.6 C 65 20 120/71 03/10/24 13:04 65 120/71 Coding Level of Care Code None Diagnoses Encounter for supervision of normal in multigravida Z34.80 Normal labor O80; Z37.9
[2024-03-10] MEDS: LACTATED RINGER'S 1,000 ML IV SCH (16:15)
[2024-03-10 16:26] LABS: Hematocrit (blood only) 35.1 % (37.0-47.0); Hemoglobin 11.4 g/dl (12.0-16.0); Mean Corpuscular Hemoglobin 26.3 pg (25.0-34.0); Mean Corpuscular Hgb Conc 32.5 g/dL (32.0-36.0); Mean Corpuscular Volume 81.1 fL (80.0-100.0); Mean Platelet Volume 10.8 fL (9.4-12.4); Platelet Count 231 K/uL (130-400); RDW Coefficient of Variation 13.5 % (11.5-14.5); RDW Standard Deviation 39.8 fL (36.4-46.3); Red Blood Count 4.33 M/uL (4.20-5.40)
[2024-03-10] MEDS: LIDOCAINE 2%/EPINEPHRINE 1:200,000 20 ML PF ONE (16:44)
[2024-03-10] MEDS: fentANYL 2 MCG/ML BUPIVacaine 0.125%-NSS 100ML BAG ONE (16:49)
--- NOTE | 2024-03-10 16:56 | Anesthesiology Consultation ---
Date of Service March 10, 2024 Assessment & Plan Chart Review Chart Review: Acceptable Risk for Labor Epidural Consults Requested none History Height/Weight Height: 5 ft 6 in Weight: 95.708 kg Allergies Allergy/AdvReac Type Severity Reaction Status Date / Time latex Allergy Intermediate RASH Verified 03/10/24 08:32 Medications Home Medications Medication Instructions Recorded Confirmed Last Taken Lactobacillus acidophilus 10 10,000 mmu cells PO DAILY 03/18/22 03/10/24 03/07/24 billion cell capsule (Probiotic) ferrous sulfate 1 tab PO DIRECTED 08/02/23 03/10/24 03/07/24 mecobalamin (vitamin B12) 1 tab PO DIRECTED 08/02/23 03/10/24 03/07/24 21-iron fu-folic acid 1 tab PO DIRECTED 08/02/23 03/10/24 03/07/24 [ Complete] ondansetron 4 mg disintegrating 4 mg PO Q6H PRN nausea and 10/05/23 03/10/24 02/02/24 tablet vomiting #12 tabs Active Medications Generic Name Dose Route Start Last Admin Trade Name Freq PRN Reason Stop Dose Admin Lactated Ringer's 1,000 mls @ 50 mls/hr 03/10/24 16:30 03/10/24 16:45 Lr IV 03/11/24 16:29 125 mls/hr .Q20H FREDIS Infusion Past Medical History Medical History Varicella vaccination Gallstones Mitral valve prolapse stable-unchanged since childhood. Pericarditis AVNRT (AV nimesh re-entry tachycardia) Past Family History Family History Grandmother (Paternal) Breast cancer Ovarian cancer Diabetes Aunt Breast cancer Mother Colorectal cancer Von Willebrand disease Father Prostate cancer Grandfather (Paternal) Diabetes Heart disease Grandfather (Maternal) Heart disease Family/Other Down syndrome cousin Denies family history of Myocardial infarction Lung cancer Stroke Past Surgical History Surgical History Hx laparoscopic cholecystectomy (08/02/22) Laparoscopic Cholecystectomy - Jeb Sidhu, DO, FACS H/O cardiac radiofrequency ablation Status post lateral meniscus repair Social History Smoking Status: Never smoker Do You Dip or Chew Tobacco: No Hx Alcohol Use: No Alcohol type: beer Hx Substance Use: No substance use type: does not use Physical Exam Vital Signs Last Vital Signs Temp 36.6 C 03/10/24 15:59 Pulse 76 03/10/24 16:55 Resp 20 03/10/24 15:59 BP 104/55 L 03/10/24 16:55 Pulse Ox 94 03/10/24 16:52 Testing Laboratory Results 03/10/24 16:00
[2024-03-10] MEDS: BUPIVACAINE 0.25% PF 30 ML VIAL ONE (17:32)
[2024-03-10] MEDS: ePHEDrine sulfate 50 MG/ML AMP ONE (17:32)
[2024-03-10] MEDS: SODIUM CHLORIDE 0.9% PF INJ 10 ML VIAL ONE (17:32)
[2024-03-10] MEDS: fentaNYL citrate PF 100 MCG/2 ML VIAL ONE (17:32)
--- NOTE | 2024-03-10 19:16 | Labor Progress Brief Note ---
Date of Service March 10, 2024 Subjective Comfortable with epidural. FHT Cat 1 [place] Q 3 SVE 5-6/90/0 AROM clear fluid. Results & Data Vital Signs (Past 12 Hours) Vital Signs Temp Pulse Resp BP Pulse Ox O2 Del Method 03/10/24 19:12 85 94 03/10/24 19:08 36.9 C 18 03/10/24 19:08 Room Air 03/10/24 19:07 82 95 03/10/24 19:02 80 95 03/10/24 19:00 82 124/65 03/10/24 18:57 92 H 97 03/10/24 18:52 80 95 03/10/24 18:47 87 96 03/10/24 18:45 81 128/66 03/10/24 18:42 86 97 03/10/24 18:37 98 H 94 03/10/24 18:34 85 87 L 03/10/24 18:32 93 H 95 03/10/24 18:31 81 122/70 03/10/24 18:27 81 96 03/10/24 18:22 99 H 96 03/10/24 18:17 78 95 03/10/24 18:16 93 H 20 128/69 03/10/24 18:12 95 H 95 03/10/24 18:07 101 H 96 03/10/24 18:02 93 03/10/24 18:02 80 03/10/24 18:02 85 18 116/72 03/10/24 17:57 82 94 03/10/24 17:52 77 94 03/10/24 17:47 84 94 03/10/24 17:46 78 20 110/58 L 03/10/24 17:42 76 95 03/10/24 17:37 72 97 03/10/24 17:32 81 95 03/10/24 17:27 69 104/51 L 96 03/10/24 17:23 75 18 106/53 L 03/10/24 17:22 67 98 03/10/24 17:18 72 99/51 L 03/10/24 17:17 70 97 03/10/24 17:12 71 20 106/56 L 95 03/10/24 17:07 94 03/10/24 17:07 74 03/10/24 17:07 72 104/54 L 03/10/24 17:02 73 95 03/10/24 17:01 69 18 102/52 L 03/10/24 16:59 71 104/50 L 03/10/24 16:57 94 03/10/24 16:57 75 03/10/24 16:57 75 18 101/57 L 03/10/24 16:55 76 104/55 L 03/10/24 16:53 72 102/50 L 03/10/24 16:52 78 94 03/10/24 16:51 73 18 97/50 L 03/10/24 16:49 82 96/50 L 03/10/24 16:47 81 18 103/61 96 03/10/24 16:45 81 106/62 03/10/24 16:43 74 20 105/64 03/10/24 16:42 75 96 03/10/24 16:41 81 18 117/63 03/10/24 16:37 82 96 03/10/24 16:32 85 95 03/10/24 16:27 90 94 03/10/24 16:22 81 96 03/10/24 16:18 87 89 L 03/10/24 16:17 78 93 03/10/24 16:13 75 93 03/10/24 16:12 70 96 03/10/24 15:59 36.6 C 77 20 130/70 03/10/24 13:07 36.6 C 65 20 120/71 03/10/24 13:04 65 120/71 Coding Level of Care Code None
[2024-03-10] MEDS: ONDANSETRON INJ 2 MG/ML 2 ML VIAL IV PRN (19:33)
[2024-03-10] MEDS: ONDANSETRON INJ 2 MG/ML 2 ML VIAL ONE (19:43)
[2024-03-10] MEDS: OXYTOCIN 30 UNITS/NSS 30 UNITS/500 ML BAG IV PRN (20:17)
--- NOTE | 2024-03-10 20:26 | Delivery Summary ---
Vaginal Delivery Summary Date of Service March 10, 2024 Vaginal Delivery Summary and 1st Degree LAC Vaginal Delivery Summary: Pre-delivery diagnoses: 28yo @ 38 09/13, spontaneous labor Post-delivery diagnoses: same Procedure: spontaneous vaginal delivery Surgeon: Katelynn Carpenter DO Complications: none Findings: Viable male . Apgars: 8/9 . Weight pending, please see nursery records Estimated QBL: 3ml Description of delivery: The patient progressed to complete with epidural anesthesia. She then began to push. She spontaneously vaginally delivered a viable from the cephalic presentation. The head delivered in GARRY position. No nuchal. The anterior shoulder delivered, followed by the posterior shoulder, followed by the body. The baby was placed on mother's abdomen and a spontaneous cry was heard. Delayed cord clamping was employed, and the cord was doubly clamped and cut. Cord blood was obtained. The placenta was delivered spontaneously intact with a 3-vessel cord. The uterus and vagina were swept of clots and debris. IV pitocin was given. The uterus became firm. The cervix, vagina, and perineum were inspected and a hemostatic small 1st degree perineal laceration noted, patient elected not for repair. Excellent hemostasis was observed. The mother and baby are recovering in stable and good condition in the room. Sponge and instrument counts were correct x 2. Katelynn Carpenter DO [facility] Vaginal Delivery Charge Vaginal Delivery Codes: 98285 global code for the antepartum, delivery, and post- Delivery Type Details: and 1st Degree LAC
[2024-03-10] MEDS ORDERED: HYDROCORTISONE ACETATE 25 MG SUPP PR PRN (20:28)
[2024-03-10] MEDS ORDERED: OXYTOCIN 30 UNITS/NSS 30 UNITS/500 ML BAG IV PRN (20:28)
[2024-03-10] MEDS ORDERED: bisacodyL 10 MG SUPP PR PRN (20:28)
[2024-03-10] MEDS ORDERED: BENZOCAINE 20% SPRY 85 APPLN/85 GM CAN EXT PRN (20:28)
[2024-03-10] MEDS ORDERED: oxyCODONE/ACETAMINOPHEN 5mg/325mg TAB PO PRN (20:28)
[2024-03-10] MEDS ORDERED: IBUPROFEN 600 MG TAB PO PRN (20:28)
[2024-03-10] MEDS ORDERED: ACETAMINOPHEN 325 MG TAB PO PRN (20:28)
[2024-03-10] MEDS: DIPHTHER/TETAN/PERTUS Vaccine (Tdap, Adol/Adult) 0.5mL IM ONE (21:01)
--- NOTE | 2024-03-10 21:05 | Anesthesia Procedure Note ---
Date of Service March 10, 2024 Anesthesia Post Epidural Note Vital Signs Vital Signs: Temp Pulse Resp BP Pulse Ox O2 Del Method 36.9 C 81 18 104/58 L 93 Room Air 03/10/24 19:08 03/10/24 20:51 03/10/24 20:50 03/10/24 20:51 03/10/24 20:17 03/10/24 19:08 Pain Intensity Lower Abdomen: Pain Intensity: 0 Notes Mental Status: alert / awake / arousable Nausea / Vomiting: adequately controlled Pain: adequately controlled Airway Patency, RR, SpO2: stable & adequate BP & HR: stable & adequate Hydration State: stable & adequate Neuraxial Anesthesia: was administered and sensory block is resolving Anesthetic Complications: no major complications apparent and Pt Satisfied with anesthetic care Epidural: Removed without complications and With tip intact
[2024-03-10] MEDS: DOCUSATE SODIUM 100 MG CAP PO SCH (21:13)
[2024-03-10 23:17] VITALS: RESP 16
[2024-03-11 03:07] VITALS: O2SAT 97
[2024-03-11 06:54] LABS: Hematocrit (blood only) 33.6 % (37.0-47.0); Hemoglobin 10.8 g/dl (12.0-16.0)
--- NOTE | 2024-03-11 08:05 | Obstetrical Progress Note ---
Date of Service March 11, 2024 Assessment & Plan (1) Encounter for supervision of normal in multigravida: PPD#1 doing well. Desires DC home. Reviewed instructions, followup 6w PP. Subjective Ambulation: ambulating normally Voiding: no voiding problems Diet Tolerance:: regular diet Lochia:: Moderate Review of Systems All systems reviewed & are unremarkable except as noted in HPI & below Physical Exam Constitutional WD/WN, vitals as above no acute distress Respiratory normal respiratory effort Cardiovascular Rate/Rhythm: regular rate and regular rhythm Gastrointestinal (Abdomen) Inspection/Auscultation: abdomen normal to inspection; abdomen not distended Percussion/Palpation: abdomen soft Genitourinary OB Exam Abdomen: + fundal height Fundus: + firm; not tender Results & Data Vital Signs (Past 12 Hours) Vital Signs Temp Pulse Pulse Resp BP BP Pulse Ox 03/11/24 03:05 36.8 C 68 16 92/58 L 97 03/10/24 23:16 36.4 C L 74 16 110/70 96 03/10/24 23:00 03/10/24 22:21 75 115/62 03/10/24 22:20 18 03/10/24 22:06 73 112/64 03/10/24 21:51 76 119/72 03/10/24 21:50 18 03/10/24 21:36 73 115/61 03/10/24 21:21 84 114/57 L 03/10/24 21:20 18 03/10/24 21:07 83 117/55 L 03/10/24 21:06 85 88/55 L 03/10/24 21:05 18 03/10/24 20:51 81 104/58 L 03/10/24 20:50 18 03/10/24 20:36 71 114/57 L 03/10/24 20:35 18 03/10/24 20:23 93 H 118/59 L 03/10/24 20:20 18 03/10/24 20:17 99 H 93 03/10/24 20:13 20 03/10/24 20:13 20 03/10/24 20:12 139 H 86 L 03/10/24 20:07 139 H 96 O2 Del Method 03/11/24 03:05 Room Air 03/10/24 23:16 Room Air 03/10/24 23:00 Room Air 03/10/24 22:21 03/10/24 22:20 03/10/24 22:06 03/10/24 21:51 03/10/24 21:50 03/10/24 21:36 03/10/24 21:21 03/10/24 21:20 03/10/24 21:07 03/10/24 21:06 03/10/24 21:05 03/10/24 20:51 03/10/24 20:50 03/10/24 20:36 03/10/24 20:35 03/10/24 20:23 03/10/24 20:20 03/10/24 20:17 03/10/24 20:13 03/10/24 20:13 03/10/24 20:12 03/10/24 20:07
[2024-03-11] MEDS: PRENATAL VITAMIN 1 TAB PO SCH (08:57)
[2024-03-11] MEDS ORDERED: bisacodyL 5 MG TABEC PO SCH (20:00)
[2024-03-11 20:30] VITALS: BP 106/90; PULSE 63; TEMP 97.9
== END 2024-03-11 21:25 | disposition home or self-care (01) | DRG 807 ==
LOC: OPB 12:52 → 4S1 12:53 → 4E2 23:00